=== PATIENT | female | born 1955 | race Caucasian/White ===

== ENCOUNTER 2016-10-15 17:28 | Emergency (ER) | payer OTHER ==
[~2016-10-15] VITALS: Ht 160 cm; Wt 47.6 kg
[~2016-10-15 17:28] MED LIST: ALBUTEROL LIQ; ATROVENT0.02%; NICO21DI4; ORASONE; PRED20TA; ROBITUSSIN; TESS100C; XOPE1.252
[2016-10-15 17:38] VITALS: BP 130/89
== END 2016-10-15 18:24 | disposition home or self-care (01) ==
LOC: M ED 18:18
DX: Z04.1 Encounter for examination and observation following transport accident (principal); J44.9 Chronic obstructive pulmonary disease, unspecified; V47.6XXA Car passenger injured in collision with fixed or stationary object in traffic accident, initial encounter; Y92.410 Unspecified street and highway as the place of occurrence of the external cause; E11.9 Type 2 diabetes mellitus without complications; F17.210 Nicotine dependence, cigarettes, uncomplicated; Z88.6 Allergy status to analgesic agent

== ENCOUNTER 2017-01-12 15:01 | Emergency (ER) | payer OTHER ==
[~2017-01-12] VITALS: Ht 160 cm; Wt 50.0 kg
[2017-01-12] MEDS ORDERED: PERCOCET 5MG/325MG TAB PO ONE (15:30)
--- NOTE | 2017-01-12 16:21 | REP ---
Clinical: Trauma. Technique: AP, lateral, bilateral oblique views of the left foot. Findings: There is a subtle, closed, nondisplaced oblique fracture through the fifth metatarsal shaft. No other fracture dislocation is identified. Underlying age-related changes noted. Impression: Closed, nondisplaced fracture through the fifth metatarsal bone Signed by Manuel Rico MD 01/12/2017 04:12 P
[2017-01-12] MEDS ORDERED: PERC5TAB12 PO (16:27)
[2017-01-12 16:43] VITALS: BP 110/78
== END 2017-01-12 16:55 | disposition home or self-care (01) ==
LOC: M ED 15:01
DX: S92.355A Nondisplaced fracture of fifth metatarsal bone, left foot, initial encounter for closed fracture (principal); W18.49XA Other slipping, tripping and stumbling without falling, initial encounter; Y92.89 Other specified places as the place of occurrence of the external cause; Y93.89 Activity, other specified; Y99.8 Other external cause status; Z88.6 Allergy status to analgesic agent

== ENCOUNTER 2017-08-10 22:54 | Emergency (ER) | payer OTHER ==
[2017-08-10] MEDS: NITROGLYCERIN 0.4 MG SUBL TABLET SL ×2 (23:12→23:58)
[2017-08-10 23:23] LABS: BASO # 0.1 10^3/uL (0.0-0.2); BASO % 0.5 % (0.0-1.0); EOS # 0.1 10^3/uL (0.0-0.50); EOS % 0.6 % (0.0-3.0); HEMATOCRIT 42.2 % (36.0-47.0); HEMOGLOBIN 14.6 g/dl (12.0-16.0); IMMATURE GRANULOCYTE % 0.3 % (0-0); LYMPH # 1.4 10^3/uL (1.5-4.5); MEAN CORPUSCULAR HEMOGLOBIN 30.4 pg (27.0-33.0); MEAN CORPUSCULAR HGB CONC 34.6 g/dl (32.0-36.5); MEAN CORPUSCULAR VOLUME 87.9 fl (80.0-96.0); MONO # 0.9 10^3/uL (0.0-0.8); MONO % 7.5 % (0.0-5.0); NEUTROPHILS # 8.9 10^3/uL (1.8-7.7); NEUTROPHILS % 79.1 % (36.0-66.0); PLATELET COUNT, AUTOMATED 331 10^3/uL (150-450); RED CELL DISTRIBUTION WIDTH 12.4 % (11.5-14.5); WHITE BLOOD COUNT 11.3 10^3/uL (4.0-10.0)
[2017-08-10 23:42] LABS: INR 0.93; PROTHROMBIN TIME 12.5 SECONDS (12.4-14.5)
[2017-08-10 23:43] LABS: PARTIAL THROMBOPLASTIN TIME 26.5 SECONDS (26.8-37.9)
[2017-08-10 23:48] LABS: ALBUMIN 3.9 GM/DL (3.2-5.2); ALBUMIN/GLOBULIN RATIO 1.05 (1.00-1.93); ALKALINE PHOSPHATASE 115 U/L (45-117); ALT/SGPT 14 U/L (12-78); ANION GAP 10 MEQ/L (8-16); AST/SGOT 12 U/L (7-37); BILIRUBIN,DIRECT 0.1 MG/DL (0.0-0.2); BILIRUBIN,TOTAL 0.4 MG/DL (0.2-1.0); BLOOD UREA NITROGEN 10 MG/DL (7-18); CALCIUM LEVEL 8.6 MG/DL (8.8-10.2); CARBON DIOXIDE LEVEL 26 MEQ/L (21-32); CHLORIDE LEVEL 95 MEQ/L (98-107); CPK CREATINE PHOSPHOKINASE 57 U/L (26-192); CREATININE FOR GFR 0.86 MG/DL (0.55-1.30); GLOMERULAR FILTRATION RATE > 60.0 (>45); GLUCOSE, FASTING 319 MG/DL (70-100); LIPASE 126 U/L (73-393); MB/CK RELATIVE INDEX 1.75 (< OR =4); NT-PRO BNP 73 PG/ML (<125); POTASSIUM SERUM 4.1 MEQ/L (3.5-5.1); SODIUM LEVEL 131 MEQ/L (136-145); TOTAL PROTEIN 7.6 GM/DL (6.4-8.2); TROPONIN I < 0.02 NG/ML (< 0.10)
[2017-08-11] MEDS ORDERED: ISOVUE-370 76% 100ML VIAL (Q9967) As Ordered (00:12)
[2017-08-11 05:52] LABS: CPK CREATINE PHOSPHOKINASE 51 U/L (26-192); TROPONIN I < 0.02 NG/ML (< 0.10)
[2017-08-11 05:54] LABS: MB/CK RELATIVE INDEX 1.96 (< OR =4)
[2017-08-11] MEDS ORDERED: METAL LOCK LOOP XX (06:08)
== END 2017-08-11 06:38 | disposition home or self-care (01) ==
LOC: M ED 22:54
DX: R07.9 Chest pain, unspecified (principal); J44.9 Chronic obstructive pulmonary disease, unspecified; F17.200 Nicotine dependence, unspecified, uncomplicated
CPT/HCPCS: Q9967

== ENCOUNTER 2018-06-04 18:30 | Emergency (ER) | payer OTHER ==
[2018-06-04] MEDS: NS 500 ML IV (18:45)
[2018-06-04 18:49] LABS: BASO % 0.5 % (0.0-1.0); EOS # 0.1 10^3/uL (0.0-0.50); EOS % 1.4 % (0.0-3.0); HEMATOCRIT 44.5 % (36.0-47.0); HEMOGLOBIN 15.1 g/dl (12.0-15.5); IMMATURE GRANULOCYTE % 0.5 % (0-3.0); LYMPH # 1.7 10^3/uL (1.5-4.5); MEAN CORPUSCULAR HEMOGLOBIN 30.9 pg (27.0-33.0); MEAN CORPUSCULAR HGB CONC 33.9 g/dl (32.0-36.5); MEAN CORPUSCULAR VOLUME 91.2 fl (80.0-96.0); MONO # 0.6 10^3/uL (0.0-0.8); MONO % 8.9 % (0.0-5.0); NEUTROPHILS # 4.2 10^3/uL (1.8-7.7); NEUTROPHILS % 63.7 % (36.0-66.0); PLATELET COUNT, AUTOMATED 252 10^3/uL (150-450); RED BLOOD COUNT 4.88 10^6/uL (4.00-5.40); RED CELL DISTRIBUTION WIDTH 12.8 % (11.5-14.5); WHITE BLOOD COUNT 6.6 10^3/uL (4.0-10.0)
[2018-06-04] MEDS: TENECTEPLASE 50 MG KIT (TNKase)(J3101) IV (18:57)
[2018-06-04] MEDS: NITROGLYCERIN 0.4 MG SUBL TABLET SL (18:59)
[2018-06-04] MEDS: HEPARIN SOD (PORCINE) 5000 UNITS/ML VIAL IV (19:00)
[2018-06-04 19:01] LABS: INR 0.89; PROTHROMBIN TIME 12.1 SECONDS (12.1-14.4)
[2018-06-04 19:02] LABS: PARTIAL THROMBOPLASTIN TIME 20.9 SECONDS (25.4-37.6)
[2018-06-04] MEDS: ONDANSETRON 4MG/2ML VIAL (J2405) IV ×2 (19:02→19:12)
[2018-06-04] MEDS: CLOPIDOGREL 300 MG TAB (PLAVIX) PO ×2 (19:02→19:07)
[2018-06-04] MEDS: HEPARIN DRIP 25,000 UNITS in APPROPRIATE DILUENT 1 EA IV (19:03)
[2018-06-04] MEDS: fentaNYL 100 MCG/2 ML INJECTION (J3010) IV (19:06)
[2018-06-04 19:30] LABS: ALBUMIN 3.4 GM/DL (3.2-5.2); ALBUMIN/GLOBULIN RATIO 1.06 (1.00-1.93); ALKALINE PHOSPHATASE 96 U/L (45-117); ALT/SGPT 17 U/L (12-78); ANION GAP 8 MEQ/L (8-16); AST/SGOT 13 U/L (7-37); BILIRUBIN,DIRECT 0.1 MG/DL (0.0-0.2); BILIRUBIN,TOTAL 0.4 MG/DL (0.2-1.0); BLOOD UREA NITROGEN 15 MG/DL (7-18); CALCIUM LEVEL 7.9 MG/DL (8.8-10.2); CARBON DIOXIDE LEVEL 28 MEQ/L (21-32); CHLORIDE LEVEL 101 MEQ/L (98-107); CPK CREATINE PHOSPHOKINASE 47 U/L (26-192); CREATININE FOR GFR 0.86 MG/DL (0.55-1.30); FREE T4 1.15 NG/DL (0.76-1.46); GLOMERULAR FILTRATION RATE > 60.0 (>45); GLUCOSE, FASTING 284 MG/DL (70-100); LIPASE 106 U/L (73-393); MB/CK RELATIVE INDEX 2.34 (< OR =4); NT-PRO BNP 472 PG/ML (<125); POTASSIUM SERUM 4.1 MEQ/L (3.5-5.1); SODIUM LEVEL 137 MEQ/L (136-145); TOTAL PROTEIN 6.6 GM/DL (6.4-8.2); TROPONIN I 0.05 NG/ML (< 0.10)
[2018-06-04] MEDS: METOPROLOL TART 25 MG TABLET PO (19:34)
== END 2018-06-04 20:15 | disposition short-term general hospital (02) ==
LOC: M ED 18:30
DX: I21.19 ST elevation (STEMI) myocardial infarction involving other coronary artery of inferior wall (principal); E11.9 Type 2 diabetes mellitus without complications; J44.9 Chronic obstructive pulmonary disease, unspecified; Z88.8 Allergy status to other drugs, medicaments and biological substances; F17.210 Nicotine dependence, cigarettes, uncomplicated
CPT/HCPCS: J2405

== ENCOUNTER → 2018-06-29 | Outpatient (REF) | payer MEDICARE, OTHER ==
[~2018-06-29] MED LIST changes: +ALBU83IN NEB; +PERC5TAB12 PO
[2018-06-29 11:12] LABS: INR 1.35; PROTHROMBIN TIME 16.8 SECONDS (12.1-14.4)
== END ==
LOC: M LAB REF 10:47
PROVIDERS: ATTEND Physician Assistant
DX: D75.82 Heparin induced thrombocytopenia (HIT) (principal); Z79.01 Long term (current) use of anticoagulants

== ENCOUNTER → 2018-07-04 | Outpatient (REF) | payer MEDICARE, MEDICAID ==
[2018-07-04 11:28] LABS: INR 1.13; PROTHROMBIN TIME 14.7 SECONDS (12.1-14.4)
== END ==
LOC: M LAB REF 11:02
PROVIDERS: ATTEND Physician Assistant
DX: I21.9 Acute myocardial infarction, unspecified (principal)

== ENCOUNTER 2018-08-08 13:18 | Emergency (ER) | payer MEDICARE, MEDICAID ==
[~2018-08-08] VITALS: Ht 160 cm; Wt 42.2 kg
[2018-08-08] MEDS ORDERED: METF-839 (13:25)
[2018-08-08] MEDS ORDERED: NS 500 ML IV ONE (13:45)
[2018-08-08 13:58] LABS: VENOUS BASE EXCESS 6.2 (-2.0-2.0); VENOUS HCO3 33.3 MEQ/L (23.0-27.0); VENOUS O2 SATURATION 62.8 % (60.0-80.0); VENOUS PARTIAL PRESSURE CO2 57.2 mmHg (38.0-50.0); VENOUS PARTIAL PRESSURE O2 33.2 mmHg (30.0-50.0); VENOUS PH 7.383 UNITS (7.330-7.430); VENOUS STANDARD HCO3 29.1 MEQ/L; VENOUS TOTAL CO2 35.1 MEQ/L (24.0-28.0)
[2018-08-08 14:02] LABS: HEMATOCRIT 38.8 % (36.0-47.0); MEAN CORPUSCULAR HEMOGLOBIN 29.3 pg (27.0-33.0); MEAN CORPUSCULAR HGB CONC 33.5 g/dl (32.0-36.5); MEAN CORPUSCULAR VOLUME 87.4 fl (80.0-96.0); PLATELET COUNT, AUTOMATED 331 10^3/uL (150-450); RED BLOOD COUNT 4.44 10^6/uL (4.00-5.40); WHITE BLOOD COUNT 8.5 10^3/uL (4.0-10.0)
[2018-08-08] MEDS ORDERED: DILT30TA PO (14:02)
[2018-08-08] MEDS ORDERED: METF500T13 PO (14:02)
[2018-08-08] MEDS ORDERED: FOLI1TAB11 PO (14:02)
[2018-08-08] MEDS ORDERED: WARF4TAB51 PO (14:02)
[2018-08-08] MEDS ORDERED: ATOR40TA75 PO (14:02)
[2018-08-08] MEDS ORDERED: CLOP75TA2 PO (14:02)
[2018-08-08] MEDS ORDERED: METO1TAB87 PO (14:02)
[2018-08-08] MEDS ORDERED: FERR325T16 PO (14:02)
[2018-08-08] MEDS ORDERED: STOO100C PO (14:02)
[2018-08-08] MEDS ORDERED: RAMI1CAP21 PO (14:02)
[2018-08-08 14:23] LABS: HEMOGLOBIN A1c 9.1 %
[2018-08-08 14:35] LABS: BLOOD UREA NITROGEN 12 MG/DL (7-18); CALCIUM LEVEL 8.8 MG/DL (8.8-10.2); CARBON DIOXIDE LEVEL 32 MEQ/L (21-32); CHLORIDE LEVEL 91 MEQ/L (98-107); CREATININE FOR GFR 0.73 MG/DL (0.55-1.30); GLOMERULAR FILTRATION RATE > 60.0 (>45); GLUCOSE, FASTING 463 MG/DL (70-100); POTASSIUM SERUM 3.9 MEQ/L (3.5-5.1); SODIUM LEVEL 132 MEQ/L (136-145)
[2018-08-08] MEDS ORDERED: HumuLIN R (REGULAR) INSULIN (NovoLIN R) **100U/ML** PER UNIT IV ONE (15:00)
[2018-08-08] MEDS ORDERED: ONDANSETRON 4MG/2ML VIAL (J2405) IV ONE (15:00)
[2018-08-08] MEDS ORDERED: LANTINJ4 SC (17:10)
[2018-08-08] MEDS ORDERED: TRES100I SC (17:21)
[2018-08-08 17:27] VITALS: BP 122/72
== END 2018-08-08 17:28 | disposition home or self-care (01) ==
LOC: M ED 13:18
DX: E11.65 Type 2 diabetes mellitus with hyperglycemia (principal); I11.9 Hypertensive heart disease without heart failure; I25.2 Old myocardial infarction; I25.10 Atherosclerotic heart disease of native coronary artery without angina pectoris; J44.9 Chronic obstructive pulmonary disease, unspecified; F17.210 Nicotine dependence, cigarettes, uncomplicated; Z95.1 Presence of aortocoronary bypass graft; Z88.8 Allergy status to other drugs, medicaments and biological substances; Z79.899 Other long term (current) drug therapy; Z79.02 Long term (current) use of antithrombotics/antiplatelets; Z79.01 Long term (current) use of anticoagulants
CPT/HCPCS: 80048; 82803; 83036; 85027; 96374; 96375; 99284; J2405

== ENCOUNTER 2018-10-05 21:07 | Emergency (ER) | payer MEDICARE, MEDICAID ==
[~2018-10-05] VITALS: Ht 160 cm; Wt 39.1 kg
[~2018-10-05 21:07] MED LIST changes: +ATOR40TA75 PO; +CLOP75TA2 PO; +DILT30TA PO; +FERR325T16 PO; +FOLI1TAB11 PO; +LANTINJ4 SC; +METF-839; +METF500T13 PO; +METO1TAB87 PO; +RAMI1CAP21 PO; +STOO100C PO; +TRES100I SC; +WARF4TAB51 PO
[2018-10-05] MEDS ORDERED: NITROGLYCERIN 0.4 MG SUBL TABLET SL PRN (21:45)
[2018-10-05 21:51] LABS: BASO # 0.1 10^3/uL (0.0-0.2); BASO % 0.9 % (0.0-1.0); EOS # 0.2 10^3/uL (0.0-0.50); EOS % 2.6 % (0.0-3.0); HEMATOCRIT 42.2 % (36.0-47.0); HEMOGLOBIN 14.3 g/dl (12.0-15.5); LYMPH # 2.8 10^3/uL (1.5-4.5); LYMPH % 35.9 % (24.0-44.0); MEAN CORPUSCULAR HEMOGLOBIN 29.3 pg (27.0-33.0); MEAN CORPUSCULAR HGB CONC 33.9 g/dl (32.0-36.5); MEAN CORPUSCULAR VOLUME 86.5 fl (80.0-96.0); MONO # 0.6 10^3/uL (0.0-0.8); MONO % 7.2 % (0.0-5.0); NEUTROPHILS # 4.1 10^3/uL (1.8-7.7); NEUTROPHILS % 53.3 % (36.0-66.0); PLATELET COUNT, AUTOMATED 334 10^3/uL (150-450); RED BLOOD COUNT 4.88 10^6/uL (4.00-5.40); WHITE BLOOD COUNT 7.8 10^3/uL (4.0-10.0)
[2018-10-05 22:02] LABS: INR 0.88; PARTIAL THROMBOPLASTIN TIME 22.6 SECONDS (25.4-37.6)
--- NOTE | 2018-10-05 22:11 | REP ---
Clinical: Chest pain . Comparison: 06/04/2018 . Findings: The mediastinum and cardiac silhouette are stable and within normal limits for portable technique. The lung werner are clear without acute consolidation, effusion, or pneumothorax. Skeletal structures are intact. Impression: No acute cardiopulmonary process appreciated. Electronically Signed by Manuel Rico MD 10/05/2018 10:02 P
[2018-10-05 22:23] LABS: ALBUMIN 3.5 GM/DL (3.2-5.2); ALT/SGPT 12 U/L (12-78); BILIRUBIN,DIRECT < 0.1 MG/DL (0.0-0.2); BILIRUBIN,TOTAL 0.3 MG/DL (0.2-1.0); BLOOD UREA NITROGEN 14 MG/DL (7-18); CALCIUM LEVEL 8.6 MG/DL (8.8-10.2); CARBON DIOXIDE LEVEL 32 MEQ/L (21-32); CHLORIDE LEVEL 97 MEQ/L (98-107); CPK CREATINE PHOSPHOKINASE 34 U/L (26-192); CREATININE FOR GFR 0.88 MG/DL (0.55-1.30); GLOMERULAR FILTRATION RATE > 60.0 (>45); GLUCOSE, FASTING 331 MG/DL (70-100); LIPASE 153 U/L (73-393); MB/CK RELATIVE INDEX 3.53 (< OR =4); POTASSIUM SERUM 3.6 MEQ/L (3.5-5.1); SODIUM LEVEL 138 MEQ/L (136-145); THYROID STIMULATING HORMONE 0.978 uIU/ML (0.358-3.740); TOTAL PROTEIN 6.7 GM/DL (6.4-8.2); TROPONIN I < 0.02 NG/ML (< 0.10)
[2018-10-05] MEDS ORDERED: ISOVUE-370 76% 125ML VIAL (Q9967 PER ML) As Ordered ONE (22:31)
[2018-10-05 22:55] VITALS: BP 166/89
--- NOTE | 2018-10-05 23:18 | REP ---
Clinical: Chest pain. Technique: Axial contrast enhanced images from the thoracic inlet to the upper abdomen with multiplanar re-formations using 100 ml Isovue 370 intravenous contrast material. Findings: Satisfactory enhancement of the pulmonary vasculature is achieved and no filling defects are identified to suggest pulmonary embolus. Bilateral lung werner demonstrate mild interstitial changes small rounded area of opacity in the lateral left lower lobe (image 59). No discrete significant consolidation. No effusion. No pneumothorax. Tracheobronchial tree is patent. No adenopathy. Mediastinum demonstrates normal thoracic aorta and heart/pericardium. Surrounding osseous structures are intact. Impression: 1. No pulmonary embolus. 2. Minimal subtle ground-glass opacities suggest possible bronchitis. Electronically Signed by Manuel Rico MD 10/05/2018 11:09 P
[2018-10-06 01:02] LABS: MB/CK RELATIVE INDEX 4.14 (< OR =4); TROPONIN I 0.03 NG/ML (< 0.10)
[2018-10-06] MEDS ORDERED: IPRATROPIUM 0.5MG/ALBUTEROL 2.5MG INH SOL UD 3ML (DUONEB)(J7620) As Ordered ONE (02:19)
[2018-10-06] MEDS ORDERED: IPRATROPIUM 0.5MG/ALBUTEROL 2.5MG INH SOL UD 3ML (DUONEB)(J7620) NEB ONE (02:30)
[2018-10-06 02:35] LABS: CPK CREATINE PHOSPHOKINASE 31 U/L (26-192); MB/CK RELATIVE INDEX 3.55 (< OR =4); TROPONIN I < 0.02 NG/ML (< 0.10)
[2018-10-06 03:07] VITALS: BP 133/82
--- NOTE | 2018-10-06 09:37 | ECGEPIP ---
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
--- NOTE | 2018-10-06 09:38 | ECGEPIP ---
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
--- NOTE | 2018-10-06 09:38 | ECGEPIP ---
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
== END 2018-10-06 03:34 | disposition home or self-care (01) ==
LOC: M ED 21:07
DX: R07.89 Other chest pain (principal); I45.10 Unspecified right bundle-branch block; R00.0 Tachycardia, unspecified; I25.10 Atherosclerotic heart disease of native coronary artery without angina pectoris; I25.2 Old myocardial infarction; E11.9 Type 2 diabetes mellitus without complications; I10 Essential (primary) hypertension; J44.9 Chronic obstructive pulmonary disease, unspecified; D75.82 Heparin induced thrombocytopenia (HIT); Z95.5 Presence of coronary angioplasty implant and graft; Z72.0 Tobacco use; Z79.01 Long term (current) use of anticoagulants; Z88.8 Allergy status to other drugs, medicaments and biological substances
CPT/HCPCS: 71045; 71275; 80048; 80076; 82550; 82553; 83690; 84443; 84484; 85025; 85610; 85730; 93005; 93041; 94760; 99285; Q9967

== ENCOUNTER 2019-07-05 00:52 | Emergency (ER) | payer MEDICARE, MEDICAID ==
[~2019-07-05] VITALS: Ht 160 cm; Wt 38.6 kg
[~2019-07-05 00:52] MED LIST changes: +MM S100C PO; -STOO100C PO
[2019-07-05 01:28] LABS: BASO # 0.1 10^3/uL (0.0-0.2); BASO % 0.6 % (0.0-1.0); EOS # 0.1 10^3/uL (0.0-0.5); EOS % 1.5 % (0.0-3.0); HEMATOCRIT 44.1 % (36.0-47.0); HEMOGLOBIN 14.4 g/dl (12.0-15.5); LYMPH # 1.8 10^3/uL (1.5-5.0); LYMPH % 20.5 % (24.0-44.0); MEAN CORPUSCULAR HEMOGLOBIN 30.1 pg (27.0-33.0); MEAN CORPUSCULAR HGB CONC 32.7 g/dl (32.0-36.5); MEAN CORPUSCULAR VOLUME 92.1 fl (80.0-96.0); MONO # 0.7 10^3/uL (0.0-0.8); MONO % 7.8 % (0.0-5.0); NEUTROPHILS # 6.2 10^3/uL (1.5-8.5); NEUTROPHILS % 69.3 % (36.0-66.0); PLATELET COUNT, AUTOMATED 282 10^3/uL (150-450); RED BLOOD COUNT 4.79 10^6/uL (4.00-5.40); WHITE BLOOD COUNT 8.9 10^3/uL (4.0-10.0)
[2019-07-05 01:58] LABS: INFLUENZA A AMPLIFICATION NEGATIVE (NEGATIVE); INFLUENZA B AMPLIFICATION NEGATIVE (NEGATIVE)
[2019-07-05 02:01] LABS: BLOOD UREA NITROGEN 21 MG/DL (7-18); CALCIUM LEVEL 9.4 MG/DL (8.8-10.2); CARBON DIOXIDE LEVEL 30 MEQ/L (21-32); CHLORIDE LEVEL 94 MEQ/L (98-107); CK-MB VALUE MASS < 1.0 NG/ML (<3.6); CPK CREATINE PHOSPHOKINASE 56 U/L (26-192); CREATININE FOR GFR 1.26 MG/DL (0.55-1.30); GLOMERULAR FILTRATION RATE 45.4 (>45); MB/CK RELATIVE INDEX 1.79 (< OR =4); POTASSIUM SERUM 3.4 MEQ/L (3.5-5.1); SODIUM LEVEL 132 MEQ/L (136-145); TROPONIN I < 0.02 NG/ML (< 0.10)
[2019-07-05 02:02] LABS: GLUCOSE, FASTING 423 MG/DL (70-100)
[2019-07-05] MEDS ORDERED: POTASSIUM CHLORIDE 10 MEQ SR TABLET PO ONE (02:30)
[2019-07-05] MEDS ORDERED: NS 500 ML IV ONE (02:45)
[2019-07-05] MEDS ORDERED: HumuLIN R (REGULAR) INSULIN (NovoLIN R) **100U/ML** PER UNIT IV ONE (02:45)
[2019-07-05] MEDS ORDERED: IPRATROPIUM 0.5MG/ALBUTEROL 2.5MG INH SOL UD 3ML (DUONEB)(J7620) NEB ONE (02:45)
[2019-07-05] MEDS ORDERED: methylPREDNISolone INJ 125 MG/2 ML VIAL (J2930) IV ONE (02:45)
[2019-07-05 02:59] LABS: HEMOGLOBIN A1c 14.5 %
[2019-07-05] MEDS ORDERED: PRED5PAK2 PO (04:20)
[2019-07-05] MEDS ORDERED: METF-839 PO (04:23)
[2019-07-05 05:00] VITALS: BP 106/59
--- NOTE | 2019-07-05 08:01 | REP ---
Clinical: Cough and dyspnea . Comparison: 10/05/2018 . Findings: The mediastinum and cardiac silhouette are stable and within normal limits for portable technique. The lung werner demonstrate chronic emphysematous changes without acute consolidation, effusion, or pneumothorax. Skeletal structures are intact. Impression: No acute cardiopulmonary process appreciated. Electronically Signed by Manuel Rico MD 07/05/2019 07:47 A
--- NOTE | 2019-07-07 14:51 | ECGEPIP ---
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
== END 2019-07-05 05:10 | disposition home or self-care (01) ==
LOC: M ED 00:52
DX: J44.1 Chronic obstructive pulmonary disease with (acute) exacerbation (principal); E11.65 Type 2 diabetes mellitus with hyperglycemia; R00.0 Tachycardia, unspecified; I44.0 Atrioventricular block, first degree; I45.10 Unspecified right bundle-branch block; I51.7 Cardiomegaly; I25.2 Old myocardial infarction; Z95.1 Presence of aortocoronary bypass graft; F17.210 Nicotine dependence, cigarettes, uncomplicated; Z88.6 Allergy status to analgesic agent
CPT/HCPCS: 71045; 80048; 82550; 82553; 83036; 84484; 85025; 87486; 87502; 87581; 87633; 87798; 93005; 93041; 94640; 94760; 96361; 96374; 96375; 99285; J2930

== ENCOUNTER 2019-07-08 21:36 | Inpatient (IN) | payer MEDICARE, MEDICAID ==
[~2019-07-08] VITALS: Ht 160 cm; Wt 44.9 kg
[~2019-07-08 21:36] MED LIST changes: +METF-839 PO; +PRED5PAK2 PO
[2019-07-08 22:07] LABS: BASO % 0.2 % (0.0-1.0); HEMATOCRIT 48.6 % (36.0-47.0); HEMOGLOBIN 15.5 g/dl (12.0-15.5); LYMPH # 0.6 10^3/uL (1.5-5.0); LYMPH % 4.8 % (24.0-44.0); MEAN CORPUSCULAR HEMOGLOBIN 30.1 pg (27.0-33.0); MEAN CORPUSCULAR HGB CONC 31.9 g/dl (32.0-36.5); MEAN CORPUSCULAR VOLUME 94.4 fl (80.0-96.0); MONO # 0.7 10^3/uL (0.0-0.8); MONO % 5.6 % (0.0-5.0); NEUTROPHILS # 11.8 10^3/uL (1.5-8.5); NEUTROPHILS % 89.1 % (36.0-66.0); PLATELET COUNT, AUTOMATED 300 10^3/uL (150-450); RED BLOOD COUNT 5.15 10^6/uL (4.00-5.40); WHITE BLOOD COUNT 13.3 10^3/uL (4.0-10.0)
[2019-07-08] MEDS ORDERED: PANTOPRAZOLE 40MG INJ (PROTONIX) (C9113) IV ONE (22:30)
[2019-07-08] MEDS ORDERED: GI COCKTAIL 50ML BTL(HYOSCYAMINE/MAALOX/LIDOCAINE VISCOUS)(1:3:1) PO ONE (22:30)
[2019-07-08 23:07] LABS: ALBUMIN 3.7 GM/DL (3.2-5.2); ALT/SGPT 13 U/L (12-78); BILIRUBIN,DIRECT 0.1 MG/DL (0.0-0.2); BILIRUBIN,TOTAL 0.5 MG/DL (0.2-1.0); BLOOD UREA NITROGEN 39 MG/DL (7-18); CARBON DIOXIDE LEVEL 16 MEQ/L (21-32); CHLORIDE LEVEL 91 MEQ/L (98-107); CK-MB VALUE MASS < 1.0 NG/ML (<3.6); CPK CREATINE PHOSPHOKINASE 54 U/L (26-192); CREATININE FOR GFR 1.48 MG/DL (0.55-1.30); GLOMERULAR FILTRATION RATE 37.6 (>45); GLUCOSE, FASTING 447 MG/DL (70-100); LIPASE 77 U/L (73-393); MB/CK RELATIVE INDEX 1.85 (< OR =4); POTASSIUM SERUM 4.6 MEQ/L (3.5-5.1); SODIUM LEVEL 131 MEQ/L (136-145); TOTAL PROTEIN 8.4 GM/DL (6.4-8.2); TROPONIN I < 0.02 NG/ML (< 0.10)
[2019-07-08] MEDS ORDERED: HumuLIN R (REGULAR) INSULIN (NovoLIN R) **100U/ML** PER UNIT IV ONE (23:15)
[2019-07-08] MEDS ORDERED: NS 1,000 ML IV ONE (23:15)
[2019-07-08 23:55] LABS: VENOUS BASE EXCESS -10.8 (-2.0-2.0); VENOUS O2 SATURATION 68.2 % (60.0-80.0); VENOUS PARTIAL PRESSURE CO2 38.9 mmHg (38.0-50.0); VENOUS PARTIAL PRESSURE O2 39.2 mmHg (30.0-50.0); VENOUS PH 7.232 UNITS (7.330-7.430); VENOUS STANDARD HCO3 15.5 MEQ/L; VENOUS TOTAL CO2 17.2 MEQ/L (24.0-28.0)
[2019-07-08 23:59] LABS: ACETONE/KETONE > 46.00 MG/DL (<2.81)
[2019-07-09] VITALS (11 sets, daily range): BP systolic 86–137; BP diastolic 47–69
[2019-07-09] MEDS ORDERED: PRED5PAK2 PO (00:20)
[2019-07-09] MEDS ORDERED: METF-839 PO (00:20)
[2019-07-09] MEDS ORDERED: NS 1,000 ML IV ONE ×2 (01:15→16:00)
[2019-07-09] MEDS ORDERED: INSULIN HUMAN REGULAR 100 UNITS in NS 99 ML IV SCH (01:15)
[2019-07-09] MEDS ORDERED: KCL 20MEQ in NS 1000ML 1,000 ML IV SCH (01:15)
--- NOTE | 2019-07-09 01:15 | HPEPDOC ---
[facility] Medical History & Physical Date of Admission Jul 09, 2019 Date of Service: Jul 09, 2019 Attending Physician: CHAU ELENA MD History and Physical CHIEF COMPLAINT: Abdominal pain HISTORY OF PRESENT ILLNESS: 64-year-old female with past medical history of diabetes mellitus, COPD, coronary artery disease status post CABG in 2018, presents with worsening abdominal pain. She had similar symptoms a few days ago, presented to the ED and was discharged home. She reports progression of symptoms with worsening abdominal pain with associated nausea, poor oral intake and decreased urination. In the ED, she is found to have high anion gap metabolic acidosis with significant hyperglycemia and elevated beta hydroxybutyrate levels. She denies any shortness of breath, chest pain, headache, diarrhea or constipation. 10 point review of system is negative except for above PAST MEDICAL HISTORY: 1. Diabetes mellitus. 2. Coronary artery disease. 3. COPD. PAST SURGICAL HISTORY: 1. CABG. 2. , Appendectomy. SOCIAL HISTORY: Current smoker, smokes 1 pack per day, has been smoking for 40 years Denies alcohol use. Denies drug use FAMILY HISTORY: Mother had unknown malignancy ALLERGIES: Please see below. HOME MEDICATIONS: Please see below. PHYSICAL EXAMINATION: VITAL SIGNS: Please see below. GENERAL: No distress HEENT: Normocephalic, atraumatic, dry mucous membranes NECK: Supple CARDIOVASCULAR EXAMINATION: S1, S2, tachycardic RESPIRATORY EXAMINATION: Clear to auscultation, no wheezing ABDOMINAL EXAMINATION: Soft, mild epigastric tenderness to palpation, nondistended, positive bowel sounds EXTREMITIES: Range of motion intact SKIN: No rash NEUROLOGICAL EXAMINATION: Alert and oriented 3, no focal deficits PSYCHIATRIC EXAMINATION: Calm and cooperative LABORATORY DATA: See below. IMAGING: Chest x-ray without acute pathology MICROBIOLOGY: Please see below. ASSESSMENT: 64-year-old female with past medical history diabetes mellitus, COPD, coronary artery disease, status post CABG is being admitted for diabetic ketoacidosis. PLAN: 1. Diabetic ketoacidosis. High anion gap metabolic acidosis with elevated beta hydroxybutyrate levels, pH 7.23, status post 14 units of IV insulin in the ED, start insulin drip, admitted to ICU, hourly fingersticks, every 4 hours BMP, received 1 L normal saline bolus in the ED, will give another 1 L normal saline bolus followed by potassium chloride 20 mEq in normal saline at 200 mL per hour. 2. COPD Stable, not on any outpatient medication, continue supplemental oxygen to maintain O2 sats between 88-92%. 3. Coronary artery disease. Status post CABG in 2018, reportedly she is not on any medication at home, should be addressed once DKA has resolved. 4. Acute on chronic kidney disease. Creatinine is slightly elevated, likely prerenal, will monitor with aggressive IV hydration. DVT prophylaxis: Heparin subcutaneous GI prophylaxis prophylaxis: Protonix Vital Signs Vital Signs Date Time Temp Pulse Resp B/P (MAP) Pulse Ox O2 Delivery O2 Flow Rate FiO2 07/08/19 23:45 119 81/56 (64) 90 07/08/19 23:36 Nasal Cannula 2.0 07/08/19 21:36 96.9 22 Laboratory Data Labs 24H Laboratory Tests 2 07/08/19 22:01: Immature Granulocyte % (Auto) 0.3, Neutrophils (%) (Auto) 89.1H, Lymphocytes (%) (Auto) 4.8L, Monocytes (%) (Auto) 5.6H, Eosinophils (%) (Auto) 0.0, Basophils (%) (Auto) 0.2, Neutrophils # (Auto) 11.8H, Lymphocytes # (Auto) 0.6L, Monocytes # (Auto) 0.7, Eosinophils # (Auto) 0.0, Basophils # (Auto) 0.0, Nucleated Red Blood Cells % (auto) 0.0, Blood Gas Bicarbonate Standard 15.5, Venous Blood pH 7.232L, Venous Blood Partial Pressure CO2 38.9, Venous Blood Partial Pressure O2 39.2, Venous Blood Total Carbon Dioxide 17.2L, Venous Blood HCO3 16.0L, Venous Blood Oxygen Saturation 68.2, Venous Blood Base Excess -10.8L, Anion Gap 24H, Glomerular Filtration Rate 37.6L, Calcium Level 9.0, Total Bilirubin 0.5, Direct Bilirubin 0.1, Aspartate Amino Transf (AST/SGOT) 15, Alanine Aminotransferase (ALT/SGPT) 13, Alkaline Phosphatase 107, Total Creatine Kinase 54, Creatine Kinase MB < 1.0, Creatine Kinase MB Relative Index 1.85, Troponin I < 0.02, Total Protein 8.4H, Albumin 3.7, Albumin/Globulin Ratio 0.79L, Lipase 77, B- Hydroxybutyrate > 46.00H CBC/BMP Laboratory Tests 07/08/19 22:01 Home Medications Scheduled Metformin HCl (Metformin HCl) 500 Mg Tablet, 500 MG PO BID Prednisone (Prednisone) 5 Mg Tab.ds.pk, 5 MG PO ASDIRECTED 6 DAY TAPER DOSE LIKE MEDROL. ON DAY 3 (1 TABLET IN THE MORNING, 1 TABLET IN THE AFTERNOON AND 1 TABLET AT NIGHT) Allergies Coded Allergies: aspirin (Unverified Adverse Reaction, Mild, NAUSEA, 10/05/18) A-FIB/CHADSVASC A-FIB History Current/History of A-Fib/PAF?: No CHAU ELENA MD Jul 09, 2019 01:15
[2019-07-09] MEDS ORDERED: KCL 20MEQ IN D5/NS 1000ML 1,000 ML IV SCH (02:00)
[2019-07-09 02:36] LABS: CREATININE FOR GFR 1.24 MG/DL (0.55-1.30)
[2019-07-09 02:37] LABS: ALBUMIN 2.8 GM/DL (3.2-5.2); BILIRUBIN,TOTAL 0.4 MG/DL (0.2-1.0); CALCIUM LEVEL 7.6 MG/DL (8.8-10.2); GLOMERULAR FILTRATION RATE 46.1 (>45); MAGNESIUM LEVEL 2.2 MG/DL (1.8-2.4); POTASSIUM SERUM 4.1 MEQ/L (3.5-5.1); TOTAL PROTEIN 6.2 GM/DL (6.4-8.2)
[2019-07-09] MEDS: INSULIN IV RATE CHANGE DOCUMENTATION ML/HR XX SCH ×4 (04:07→07:07)
[2019-07-09 05:29] LABS: CALCIUM LEVEL 7.8 MG/DL (8.8-10.2); CREATININE FOR GFR 1.2 MG/DL (0.55-1.30); GLOMERULAR FILTRATION RATE 47.8 (>45); POTASSIUM SERUM 3.9 MEQ/L (3.5-5.1)
[2019-07-09] MEDS ORDERED: LEVEMIR (INSULIN DETEMIR) 1 UNITS/0.01ML SC ONE (06:00)
--- NOTE | 2019-07-09 07:27 | REP ---
Clinical: Chest pain . Comparison: 07/05/2019 . Findings: The mediastinum and cardiac silhouette are stable and within normal limits for portable technique. Evidence of prior sternotomy and CABG. The lung werner demonstrate chronic changes without acute consolidation, effusion, or pneumothorax. Skeletal structures are intact. Impression: No acute cardiopulmonary process appreciated. Electronically Signed by Manuel Rico MD 07/09/2019 07:18 A
[2019-07-09] MEDS ORDERED: GLUCOSE 4 GM CHEW TABLET PO PRN (08:15)
[2019-07-09] MEDS ORDERED: GLUCAGON FOR INJ 1 MG VIAL (J1610) SC PRN (08:15)
[2019-07-09] MEDS ORDERED: DEXTROSE 50% 50 ML SYRINGE IV PRN (08:15)
[2019-07-09] MEDS: HEPARIN SOD (PORCINE) 5000 UNITS/ML VIAL SC SCH ×2 (08:28→20:43)
[2019-07-09] MEDS ORDERED: PANTOPRAZOLE 40MG INJ (PROTONIX) (C9113) IV SCH (09:00)
--- NOTE | 2019-07-09 09:21 | REP ---
Clinical: Pneumonia. Technique: PA and lateral. Comparison: 07/08/2019. Findings: Mediastinum and cardiac silhouette are normal. Diffuse chronic interstitial changes are again appreciated. No discrete focal consolidation, effusion, or pneumothorax. Skeletal structures demonstrate osteopenia and degenerative changes. Evidence for prior sternotomy and CABG. Impression: No focal consolidation or effusion. Electronically Signed by Manuel Rico MD 07/09/2019 09:12 A
[2019-07-09] MEDS ORDERED: LevoFLOXacin IV 750 MG in IV 1 EA IV SCH (10:00)
[2019-07-09 10:36] LABS: BLOOD UREA NITROGEN 27 MG/DL (7-18); CARBON DIOXIDE LEVEL 25 MEQ/L (21-32); CHLORIDE LEVEL 106 MEQ/L (98-107); CREATININE FOR GFR 0.93 MG/DL (0.55-1.30); GLOMERULAR FILTRATION RATE > 60.0 (>45); GLUCOSE, FASTING 144 MG/DL (70-100); PHOSPHORUS LEVEL 1.4 MG/DL (2.5-4.9); POTASSIUM SERUM 4.3 MEQ/L (3.5-5.1); SODIUM LEVEL 137 MEQ/L (136-145)
--- NOTE | 2019-07-09 10:56 | IPNPDOC ---
Text Note Date of Service The patient was seen on 07/09/19. NOTE Subjective: Patient complains of cough with greenish sputum. Patient stated that she has appetite and she would like to eat. Patient has fever, chills, nausea, vomiting, diarrhea or dysuria Objective: GENERAL: No distress HEENT: Normocephalic, atraumatic, dry mucous membranes NECK: Supple, PERRLA, EOMI CARDIOVASCULAR EXAMINATION: S1, S2, tachycardic RESPIRATORY EXAMINATION: Coarse lung sounds bilaterally, diminished ABDOMINAL EXAMINATION: Soft, mild epigastric tenderness to palpation, nondistended, positive bowel sounds EXTREMITIES: Range of motion intact SKIN: No rash NEUROLOGICAL EXAMINATION: Alert and oriented 3, no focal deficits PSYCHIATRIC EXAMINATION: Calm and cooperative ASSESSMENT: 64-year-old female with past medical history diabetes mellitus, COPD, coronary artery disease, status post CABG is being admitted for diabetic ketoacidosis. PLAN: 1. Diabetic ketoacidosis Resolved High anion gap closed Patient started eating. Insulin sliding scale Diabetes diet 2. COPD exacerbation Patient is active smoker, 1 pack a day Developed cough and greenish sputum Chest x-ray Levofloxacin IV Sputum culture 3. Coronary artery disease. Status post CABG in 2018 I started aspirin and metoprolol Echo 4. Acute on chronic kidney disease Secondary to dehydration due to DKA Improved Continue IV hydration VS,Yuriye, I+O VS, Elpidiobone, I+O Laboratory Tests 07/08/19 22:01 07/09/19 01:56 07/09/19 04:46 Vital Signs Date Time Temp Pulse Resp B/P (MAP) Pulse Ox O2 Delivery O2 Flow Rate FiO2 07/09/19 08:55 103 118/57 (77) 07/09/19 08:00 99.6 24 91 Nasal Cannula 07/09/19 08:00 2.0 I&O- Last 24 Hours up to 6 AM 07/09/19 06:00 Intake Total 800 ml Output Total 200 ml Balance 600 ml MARCIE GLASER DO Jul 09, 2019 10:56
[2019-07-09] MEDS ORDERED: IPRATROPIUM 0.5MG/ALBUTEROL 2.5MG INH SOL UD 3ML (DUONEB)(J7620) NEB PRN (11:00)
[2019-07-09] MEDS ORDERED: METOPROLOL TART 25 MG TABLET PO ONE (11:00)
[2019-07-09 11:27] LABS: HEMOGLOBIN A1c 14.4 %
[2019-07-09] MEDS: HumaLOG INSULIN (NovoLOG) PER UNIT SC SCH ×3 (12:59→20:16)
[2019-07-09] MEDS: ASPIRIN 81 MG CHEW TABLET PO SCH (13:04)
[2019-07-09] MEDS: IPRATROPIUM 0.5MG/ALBUTEROL 2.5MG INH SOL UD 3ML (DUONEB)(J7620) NEB SCH ×2 (14:00→21:02)
[2019-07-09 14:17] LABS: HEMATOCRIT 39.3 % (36.0-47.0); MEAN CORPUSCULAR HEMOGLOBIN 30.5 pg (27.0-33.0); MEAN CORPUSCULAR HGB CONC 33.1 g/dl (32.0-36.5); MEAN CORPUSCULAR VOLUME 92.3 fl (80.0-96.0); PLATELET COUNT, AUTOMATED 224 10^3/uL (150-450); RED BLOOD COUNT 4.26 10^6/uL (4.00-5.40); WHITE BLOOD COUNT 9.6 10^3/uL (4.0-10.0)
[2019-07-09 14:36] LABS: BLOOD UREA NITROGEN 22 MG/DL (7-18); CALCIUM LEVEL 7.9 MG/DL (8.8-10.2); CARBON DIOXIDE LEVEL 24 MEQ/L (21-32); CHLORIDE LEVEL 105 MEQ/L (98-107); GLOMERULAR FILTRATION RATE > 60.0 (>45); GLUCOSE, FASTING 99 MG/DL (70-100); PHOSPHORUS LEVEL 1.1 MG/DL (2.5-4.9); POTASSIUM SERUM 4.1 MEQ/L (3.5-5.1); SODIUM LEVEL 137 MEQ/L (136-145)
[2019-07-09 18:32] LABS: HEMATOCRIT 36.6 % (36.0-47.0); HEMOGLOBIN 12.1 g/dl (12.0-15.5); MEAN CORPUSCULAR HEMOGLOBIN 30.3 pg (27.0-33.0); MEAN CORPUSCULAR HGB CONC 33.1 g/dl (32.0-36.5); MEAN CORPUSCULAR VOLUME 91.7 fl (80.0-96.0); PLATELET COUNT, AUTOMATED 207 10^3/uL (150-450); RED BLOOD COUNT 3.99 10^6/uL (4.00-5.40); WHITE BLOOD COUNT 9.7 10^3/uL (4.0-10.0)
[2019-07-09 19:05] LABS: BLOOD UREA NITROGEN 21 MG/DL (7-18); CALCIUM LEVEL 7.4 MG/DL (8.8-10.2); CARBON DIOXIDE LEVEL 25 MEQ/L (21-32); CHLORIDE LEVEL 104 MEQ/L (98-107); CREATININE FOR GFR 0.77 MG/DL (0.55-1.30); GLOMERULAR FILTRATION RATE > 60.0 (>45); GLUCOSE, FASTING 123 MG/DL (70-100); PHOSPHORUS LEVEL 1.6 MG/DL (2.5-4.9); POTASSIUM SERUM 4.1 MEQ/L (3.5-5.1); SODIUM LEVEL 136 MEQ/L (136-145)
--- NOTE | 2019-07-09 20:36 | REP ---
Clinical: Shortness of breath . Comparison: 07/09/2019 . Findings: The mediastinum and cardiac silhouette are stable and within normal limits for portable technique. Evidence of prior sternotomy. The lung werner demonstrate diffuse chronic interstitial changes without acute consolidation, effusion, or pneumothorax. Skeletal structures are intact. Impression: Stable chronic changes. No acute cardiopulmonary process appreciated. Electronically Signed by Manuel Rico MD 07/09/2019 08:27 P
[2019-07-09] MEDS ORDERED: METOPROLOL TART 25 MG TABLET PO SCH (21:00)
[2019-07-09 21:15] LABS: NT-PRO BNP 1158 PG/ML (<125); TROPONIN I < 0.02 NG/ML (< 0.10)
[2019-07-09] MEDS ORDERED: guaiFENesin SYRUP 200 MG/10 ML UDC PO PRN (21:15)
[2019-07-09] MEDS: ACETAMINOPHEN 500 MG TAB PO PRN (21:26)
[2019-07-09] MEDS: LEVALBUTEROL 1.25 MG/0.5 ML CONCENTRATE NEB INH PRN (21:40)
[2019-07-09 23:01] LABS: HEMATOCRIT 37.1 % (36.0-47.0); HEMOGLOBIN 11.9 g/dl (12.0-15.5); MEAN CORPUSCULAR HEMOGLOBIN 29.5 pg (27.0-33.0); MEAN CORPUSCULAR HGB CONC 32.1 g/dl (32.0-36.5); MEAN CORPUSCULAR VOLUME 92.1 fl (80.0-96.0); PLATELET COUNT, AUTOMATED 187 10^3/uL (150-450); RED BLOOD COUNT 4.03 10^6/uL (4.00-5.40); WHITE BLOOD COUNT 8.9 10^3/uL (4.0-10.0)
[2019-07-10] MEDS: LEVALBUTEROL 1.25 MG/0.5 ML CONCENTRATE NEB INH PRN ×2 (00:32→06:29)
[2019-07-10] MEDS: IPRATROPIUM 0.5MG/ALBUTEROL 2.5MG INH SOL UD 3ML (DUONEB)(J7620) NEB SCH ×4 (00:32→19:57)
[2019-07-10 06:00] VITALS: BP 119/69
[2019-07-10 06:13] LABS: HEMATOCRIT 35.6 % (36.0-47.0); HEMOGLOBIN 11.7 g/dl (12.0-15.5); MEAN CORPUSCULAR HEMOGLOBIN 30.2 pg (27.0-33.0); MEAN CORPUSCULAR HGB CONC 32.9 g/dl (32.0-36.5); PLATELET COUNT, AUTOMATED 187 10^3/uL (150-450); RED BLOOD COUNT 3.87 10^6/uL (4.00-5.40)
[2019-07-10 06:31] LABS: BLOOD UREA NITROGEN 15 MG/DL (7-18); CALCIUM LEVEL 7.7 MG/DL (8.8-10.2); CARBON DIOXIDE LEVEL 25 MEQ/L (21-32); CHLORIDE LEVEL 103 MEQ/L (98-107); CREATININE FOR GFR 0.68 MG/DL (0.55-1.30); GLOMERULAR FILTRATION RATE > 60.0 (>45); GLUCOSE, FASTING 179 MG/DL (70-100); MAGNESIUM LEVEL 2.1 MG/DL (1.8-2.4); POTASSIUM SERUM 4.1 MEQ/L (3.5-5.1); SODIUM LEVEL 136 MEQ/L (136-145)
--- NOTE | 2019-07-10 07:28 | ECGEPIP ---
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
[2019-07-10] MEDS: HumaLOG INSULIN (NovoLOG) PER UNIT SC SCH ×4 (07:30→20:24)
[2019-07-10] MEDS: METOPROLOL TART 12.5 MG PER 1/2 TAB PO SCH ×2 (08:25→20:57)
[2019-07-10] MEDS: ASPIRIN 81 MG CHEW TABLET PO SCH (08:25)
[2019-07-10] MEDS: OMEPRAZOLE 20 MG CAP PO SCH (08:25)
[2019-07-10] MEDS: HEPARIN SOD (PORCINE) 5000 UNITS/ML VIAL SC SCH ×2 (08:26→20:31)
[2019-07-10 11:18] LABS: HEMOGLOBIN 11.6 g/dl (12.0-15.5); MEAN CORPUSCULAR HEMOGLOBIN 29.9 pg (27.0-33.0); MEAN CORPUSCULAR HGB CONC 32.2 g/dl (32.0-36.5); MEAN CORPUSCULAR VOLUME 92.8 fl (80.0-96.0); PLATELET COUNT, AUTOMATED 181 10^3/uL (150-450); RED BLOOD COUNT 3.88 10^6/uL (4.00-5.40); WHITE BLOOD COUNT 5.9 10^3/uL (4.0-10.0)
--- NOTE | 2019-07-10 11:42 | IPNPDOC ---
Text Note Date of Service The patient was seen on 07/10/19. NOTE Subjective: Patient complains of cough. Patient has fever, chills, nausea, vom iting, diarrhea or dysuria Objective: GENERAL: No distress HEENT: Normocephalic, atraumatic, dry mucous membranes NECK: Supple, PERRLA, EOMI CARDIOVASCULAR EXAMINATION: S1, S2, tachycardic RESPIRATORY EXAMINATION: Coarse lung sounds bilaterally, diminished ABDOMINAL EXAMINATION: Soft, mild epigastric tenderness to palpation, nondistended, positive bowel sounds EXTREMITIES: Range of motion intact SKIN: No rash NEUROLOGICAL EXAMINATION: Alert and oriented 3, no focal deficits PSYCHIATRIC EXAMINATION: Calm and cooperative ASSESSMENT: 64-year-old female with past medical history diabetes mellitus, COPD, coronary artery disease, status post CABG is being admitted for diabetic ketoacidosis. PLAN: 1. Diabetic ketoacidosis Resolved High anion gap closed Patient started eating, glucose levels under control Insulin sliding scale Diabetes diet 2. COPD exacerbation Patient is active smoker, 1 pack a day Developed cough and greenish sputum Chest x-ray didn't show any acute infiltrate Continue Levofloxacin IV Sputum culture pending 3. Coronary artery disease. Status post CABG in 2018 I started aspirin and metoprolol Echo pending 4. Acute on chronic kidney disease Secondary to dehydration due to DKA Improved Continue IV hydration VS,Elpidiobone, I+O VS, Fishbone, I+O Laboratory Tests 07/09/19 14:09 07/09/19 18:14 07/09/19 22:54 07/10/19 05:21 07/10/19 11:06 Vital Signs Date Time Temp Pulse Resp B/P (MAP) Pulse Ox O2 Delivery O2 Flow Rate FiO2 07/10/19 09:00 0.5 07/10/19 08:25 90 106/59 07/10/19 06:35 18 07/10/19 06:00 98.2 94 Nasal Cannula I&O- Last 24 Hours up to 6 AM 07/10/19 06:00 Intake Total 2258 ml Output Total 0 ml Balance 2258 ml MARCIE GLASER DO Jul 10, 2019 11:42
[2019-07-10] MEDS: FUROSEMIDE 20 MG TAB PO SCH (13:15)
[2019-07-10 14:00] VITALS: BP 108/58
--- NOTE | 2019-07-10 14:10 | ECHO ---
DATE OF SERVICE: 07/09/2019 REFERRING PROVIDER: Dr. Shawn Peres PATIENT LOCATION: Room 4230 REASON FOR THE STUDY: Heart failure. 2D MEASUREMENTS: IVS: 0.9 cm LV: 8.8 cm LVPW: 0.9 cm LA: 3.2 cm Aorta: 2.7 cm IVC: 1.5 cm DOPPLER MEASUREMENTS: Peak velocity across the aortic valve: 1.1 m/s Peak velocity across the LVOT: 0.9 m/s Mitral E: 0.6 Mitral A: 0.8 with a ratio of 0.8 Maximum tricuspid valve velocity: 2.2 m/s 2D COMMENTS: 1. Normal left ventricular size, wall thickness, and normal global left ventricular systolic function. The estimated left ventricular systolic fraction is 55-60%. 2. Normal left atrium. Normal right atrium and right ventricle. 3. The atrial septum appeared to be normal without evidence of defect or shunt. 4. Normal aortic root. 5. Trace pericardial effusion noted, no evidence of cardiac tamponde. 6. Minimally calcified aortic valve with normal leaflet excursion. Mildly calcified mitral annulus with normal anterior mitral valve leaflet motion. Normal tricuspid valve and pulmonic valve. The proximal pulmonary artery branches were not well visualized. The inferior vena cava was normal in size, central venous pressure is most likely normal. DOPPLER: It detects mild mitral regurgitation, mild tricuspid regurgitation, and trace pulmonic regurgitation. The calculated pulmonary artery systolic pressure was normal. Abnormal relaxation pattern was noted across the mitral valve leaflets as well as the mitral valve annulus consistent with features of grade 1 left ventricular diastolic dysfunction. IMPRESSION: 1. Normal global left ventricular systolic function. There is some features of grade 1 left ventricular diastolic dysfunction manifested by abnormal relaxation. 2. Mitral annulus calcification with mild mitral regurgitation, but no mitral stenosis. 3. Mild tricuspid radiation with a normal calculated pulmonary artery systolic pressure. 4. Trace pericardial effusion noted, no evidence of cardiac tamponade. 5. Trace pulmonic regurgitation. 6. Not mentioned above, the Global Longitudinal Strain/GLS was reported to be 11.8, putting the patient at high risk to develop heart failure in the future. MTDD
[2019-07-10 17:23] LABS: HEMATOCRIT 37.4 % (36.0-47.0); HEMOGLOBIN 12.1 g/dl (12.0-15.5); MEAN CORPUSCULAR HEMOGLOBIN 29.8 pg (27.0-33.0); MEAN CORPUSCULAR HGB CONC 32.4 g/dl (32.0-36.5); MEAN CORPUSCULAR VOLUME 92.1 fl (80.0-96.0); PLATELET COUNT, AUTOMATED 179 10^3/uL (150-450); RED BLOOD COUNT 4.06 10^6/uL (4.00-5.40); WHITE BLOOD COUNT 5.7 10^3/uL (4.0-10.0)
[2019-07-10 20:54] VITALS: BP 96/52
[2019-07-10 22:00] VITALS: BP 108/52
[2019-07-10 23:05] LABS: HEMATOCRIT 36.7 % (36.0-47.0); HEMOGLOBIN 11.8 g/dl (12.0-15.5); MEAN CORPUSCULAR HEMOGLOBIN 29.7 pg (27.0-33.0); MEAN CORPUSCULAR HGB CONC 32.2 g/dl (32.0-36.5); MEAN CORPUSCULAR VOLUME 92.4 fl (80.0-96.0); PLATELET COUNT, AUTOMATED 184 10^3/uL (150-450); RED BLOOD COUNT 3.97 10^6/uL (4.00-5.40); WHITE BLOOD COUNT 5.5 10^3/uL (4.0-10.0)
[2019-07-11] MEDS: IPRATROPIUM 0.5MG/ALBUTEROL 2.5MG INH SOL UD 3ML (DUONEB)(J7620) NEB SCH ×4 (02:00→19:48)
[2019-07-11 06:00] VITALS: BP 130/70
[2019-07-11] MEDS ORDERED: LevoFLOXacin 750 MG TABLET PO SCH (06:00)
[2019-07-11 06:28] LABS: HEMATOCRIT 38.9 % (36.0-47.0); HEMOGLOBIN 12.6 g/dl (12.0-15.5); MEAN CORPUSCULAR HEMOGLOBIN 29.6 pg (27.0-33.0); MEAN CORPUSCULAR HGB CONC 32.4 g/dl (32.0-36.5); MEAN CORPUSCULAR VOLUME 91.3 fl (80.0-96.0); PLATELET COUNT, AUTOMATED 190 10^3/uL (150-450); RED BLOOD COUNT 4.26 10^6/uL (4.00-5.40); WHITE BLOOD COUNT 4.4 10^3/uL (4.0-10.0)
[2019-07-11 06:57] LABS: BLOOD UREA NITROGEN 12 MG/DL (7-18); CALCIUM LEVEL 8.1 MG/DL (8.8-10.2); CARBON DIOXIDE LEVEL 29 MEQ/L (21-32); CHLORIDE LEVEL 100 MEQ/L (98-107); CREATININE FOR GFR 0.73 MG/DL (0.55-1.30); GLOMERULAR FILTRATION RATE > 60.0 (>45); GLUCOSE, FASTING 311 MG/DL (70-100); POTASSIUM SERUM 3.4 MEQ/L (3.5-5.1); SODIUM LEVEL 136 MEQ/L (136-145)
[2019-07-11] MEDS ORDERED: POTASSIUM CHLORIDE 10 MEQ SR TABLET PO ONE (07:45)
--- NOTE | 2019-07-11 07:51 | ECGEPIP ---
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
[2019-07-11] MEDS: HumaLOG INSULIN (NovoLOG) PER UNIT SC SCH ×4 (08:05→22:04)
[2019-07-11] MEDS: LEVEMIR (INSULIN DETEMIR) 1 UNITS/0.01ML SC SCH ×2 (08:05→22:05)
[2019-07-11] MEDS: ASPIRIN 81 MG CHEW TABLET PO SCH (08:06)
[2019-07-11] MEDS: OMEPRAZOLE 20 MG CAP PO SCH (08:08)
[2019-07-11] MEDS: FUROSEMIDE 20 MG TAB PO SCH (08:08)
[2019-07-11] MEDS: METOPROLOL TART 12.5 MG PER 1/2 TAB PO SCH ×2 (08:08→22:06)
[2019-07-11] MEDS: HEPARIN SOD (PORCINE) 5000 UNITS/ML VIAL SC SCH ×2 (08:09→22:06)
--- NOTE | 2019-07-11 13:30 | IPNPDOC ---
Text Note Date of Service The patient was seen on 07/11/19. NOTE Subjective: Patient states that she feels better, less cough, sputum changed c olor from greenish to yellowish. Patient has fever, chills, nausea, vomiting, diarrhea or dysuria Objective: GENERAL: No distress HEENT: Normocephalic, atraumatic, dry mucous membranes NECK: Supple, PERRLA, EOMI CARDIOVASCULAR EXAMINATION: S1, S2, tachycardic RESPIRATORY EXAMINATION: Coarse lung sounds bilaterally, diminished ABDOMINAL EXAMINATION: Soft, mild epigastric tenderness to palpation, nondistended, positive bowel sounds EXTREMITIES: Range of motion intact SKIN: No rash NEUROLOGICAL EXAMINATION: Alert and oriented 3, no focal deficits PSYCHIATRIC EXAMINATION: Calm and cooperative 2D MEASUREMENTS: IVS: 0.9 cm LV: 8.8 cm LVPW: 0.9 cm LA: 3.2 cm Aorta: 2.7 cm IVC: 1.5 cm DOPPLER MEASUREMENTS: Peak velocity across the aortic valve: 1.1 m/s Peak velocity across the LVOT: 0.9 m/s Mitral E: 0.6 Mitral A: 0.8 with a ratio of 0.8 Maximum tricuspid valve velocity: 2.2 m/s 2D COMMENTS: 1. Normal left ventricular size, wall thickness, and normal global left ventricular systolic function. The estimated left ventricular systolic fraction is 55-60%. 2. Normal left atrium. Normal right atrium and right ventricle. 3. The atrial septum appeared to be normal without evidence of defect or shunt. 4. Normal aortic root. 5. Trace pericardial effusion noted, no evidence of cardiac tamponde. 6. Minimally calcified aortic valve with normal leaflet excursion. Mildly calcified mitral annulus with normal anterior mitral valve leaflet motion. Normal tricuspid valve and pulmonic valve. The proximal pulmonary artery branches were not well visualized. The inferior vena cava was normal in size, central venous pressure is most likely normal. Doppler, it detects mild mitral regurgitation, mild tricuspid regurgitation, and trace pulmonic regurgitation. The calculated pulmonary artery systolic pressure was normal. Abnormal relaxation pattern was noted across the mitral valve leaflets as well as the mitral valve annulus consistent with features of grade 1 left ventricular diastolic dysfunction. IMPRESSION: 1. Normal global left ventricular systolic function. There is some features of grade 1 left ventricular diastolic dysfunction manifested by abnormal relax ation. 2. Mitral annulus calcification with mild mitral regurgitation, but no mitral stenosis. 3. Mild tricuspid radiation with a normal calculated pulmonary artery systolic pressure. 4. Trace pericardial effusion noted, no evidence of cardiac tamponade. 5. Trace pulmonic regurgitation. 6. , the global longitudinal strand and was reported to be 11.8, putting the patient at high risk to develop heart failure in the future. DD: VERONIQUE FIGUEROA MD 07/10/19 0152 DT: QUETA 07/10/19 0649 DS: ASSESSMENT: 64-year-old female with past medical history diabetes mellitus, COPD, coronary artery disease, status post CABG is being admitted for diabetic ketoacidosis. PLAN: 1. Diabetic ketoacidosis Resolved High anion gap closed Patient started eating, glucose levels under control Insulin sliding scale I added basal insulin due to hyperglycemia of 300 in the morning Diabetes diet Diabetes education 2. COPD exacerbation Improved Patient is active smoker, 1 pack a day Developed cough and greenish sputum Chest x-ray didn't show any acute infiltrate Continue Levofloxacin by mouth 3. Coronary artery disease. Status post CABG in 2018 I started aspirin and metoprolol 4. Acute on chronic kidney disease Secondary to dehydration due to DKA Improved VS,Fishbone, I+O VS, Fishbone, I+O Laboratory Tests 07/10/19 17:17 07/10/19 23:00 07/11/19 05:54 Vital Signs Date Time Temp Pulse Resp B/P (MAP) Pulse Ox O2 Delivery O2 Flow Rate FiO2 07/11/19 08:08 110 109/62 07/11/19 06:00 98.1 22 98 Nasal Cannula 1.0 I&O- Last 24 Hours up to 6 AM 07/11/19 06:00 Intake Total 660 ml Output Total 1400 ml Balance -740 ml MARCIE GLASER DO Jul 11, 2019 13:30
[2019-07-11 14:00] VITALS: BP 104/53
[2019-07-11 22:00] VITALS: BP 117/61
[2019-07-12] MEDS: IPRATROPIUM 0.5MG/ALBUTEROL 2.5MG INH SOL UD 3ML (DUONEB)(J7620) NEB SCH ×3 (01:38→14:00)
[2019-07-12] MEDS: ACETAMINOPHEN 500 MG TAB PO PRN (02:49)
[2019-07-12 06:00] VITALS: BP 104/55
[2019-07-12 06:29] LABS: BLOOD UREA NITROGEN 11 MG/DL (7-18); CALCIUM LEVEL 8.2 MG/DL (8.8-10.2); CARBON DIOXIDE LEVEL 30 MEQ/L (21-32); CHLORIDE LEVEL 100 MEQ/L (98-107); CREATININE FOR GFR 0.62 MG/DL (0.55-1.30); GLOMERULAR FILTRATION RATE > 60.0 (>45); GLUCOSE, FASTING 188 MG/DL (70-100); MAGNESIUM LEVEL 1.9 MG/DL (1.8-2.4); POTASSIUM SERUM 3.5 MEQ/L (3.5-5.1); SODIUM LEVEL 137 MEQ/L (136-145)
[2019-07-12] MEDS: HumaLOG INSULIN (NovoLOG) PER UNIT SC SCH ×2 (08:03→11:43)
[2019-07-12] MEDS: LEVEMIR (INSULIN DETEMIR) 1 UNITS/0.01ML SC SCH (08:04)
[2019-07-12] MEDS: HEPARIN SOD (PORCINE) 5000 UNITS/ML VIAL SC SCH (08:04)
[2019-07-12] MEDS: ASPIRIN 81 MG CHEW TABLET PO SCH (08:04)
[2019-07-12 08:05] VITALS: BP 119/91
[2019-07-12] MEDS: OMEPRAZOLE 20 MG CAP PO SCH (08:05)
[2019-07-12] MEDS: METOPROLOL TART 12.5 MG PER 1/2 TAB PO SCH (08:05)
[2019-07-12] MEDS: FUROSEMIDE 20 MG TAB PO SCH (08:05)
[2019-07-12] MEDS ORDERED: FURO20TA2 PO (10:43)
[2019-07-12] MEDS ORDERED: LEVA750T7 PO (10:43)
[2019-07-12] MEDS ORDERED: LANTINJ4 SC (10:43)
[2019-07-12] MEDS ORDERED: OMEP-218 PO (10:43)
[2019-07-12] MEDS ORDERED: METO1TAB87 PO (10:43)
[2019-07-12] MEDS ORDERED: ASPI81CH8 PO (10:43)
--- NOTE | 2019-07-12 18:16 | DS.PDOC ---
Discharge Summary General Date of Admission Jul 09, 2019 at 01:05 Date of Discharge 07/12/19 Discharge Summary PROCEDURES PERFORMED DURING STAY: [None]. ADMITTING DIAGNOSES: Diabetic ketoacidosis COPD exacerbation Coronary artery disease Acute on chronic kidney disease DISCHARGE DIAGNOSES: Diabetic ketoacidosis COPD exacerbation Coronary artery disease Acute on chronic kidney disease COMPLICATIONS/CHIEF COMPLAINT: Coronary Artery Disease. HISTORY OF PRESENT ILLNESS: HISTORY OF PRESENT ILLNESS: 64-year-old female with past medical history of diabetes mellitus, COPD, coronary artery disease status post CABG in 2018, presents with worsening abdominal pain. She had similar symptoms a few days ago, presented to the ED and was discharged home. She reports progression of symptoms with worsening abdominal pain with associated nausea, poor oral intake and decreased urination. In the ED, she is found to have high anion gap metabolic acidosis with significant hyperglycemia and elevated beta hydroxy butyrate levels. She denies any shortness of breath, chest pain, headache, diarrhea or constipation. HOSPITAL COURSE: During hospital stay the following issue addressed Diabetic ketoacidosis Patient received treatment with insulin drip. Blood glucose level stabilized. Patient has poorly controlled diabetes with HbA1c 14 High anion gap closed Patient started eating, glucose levels under control Insulin sliding scale I added basal insulin Diabetes diet Diabetes education 2. COPD exacerbation Improved Patient is active smoker, 1 pack a day Developed cough and greenish sputum Chest x-ray didn't show any acute infiltrate Levofloxacin by mouth 3. Coronary artery disease. Status post CABG in 2018 I started aspirin and metoprolol 4. Acute on chronic kidney disease Secondary to dehydration due to DKA Improved DISCHARGE MEDICATIONS: Please see below. ALLERGIES: Please see below. PHYSICAL EXAMINATION ON DISCHARGE: VITAL SIGNS: Please see below. NECK: Supple, PERRLA, EOMI CARDIOVASCULAR EXAMINATION: S1, S2, tachycardic RESPIRATORY EXAMINATION: Coarse lung sounds bilaterally, diminished ABDOMINAL EXAMINATION: Soft, mild epigastric tenderness to palpation, nondistended, positive bowel sounds EXTREMITIES: Range of motion intact SKIN: No rash NEUROLOGICAL EXAMINATION: Alert and oriented 3, no focal deficits PSYCHIATRIC EXAMINATION: Calm and cooperative LABORATORY DATA: Please see below. IMAGIND MEASUREMENTS: IVS: 0.9 cm LV: 8.8 cm LVPW: 0.9 cm LA: 3.2 cm Aorta: 2.7 cm IVC: 1.5 cm DOPPLER MEASUREMENTS: Peak velocity across the aortic valve: 1.1 m/s Peak velocity across the LVOT: 0.9 m/s Mitral E: 0.6 Mitral A: 0.8 with a ratio of 0.8 Maximum tricuspid valve velocity: 2.2 m/s 2D COMMENTS: 1. Normal left ventricular size, wall thickness, and normal global left ventricular systolic function. The estimated left ventricular systolic fraction is 55-60%. 2. Normal left atrium. Normal right atrium and right ventricle. 3. The atrial septum appeared to be normal without evidence of defect or shunt. 4. Normal aortic root. 5. Trace pericardial effusion noted, no evidence of cardiac tamponde. 6. Minimally calcified aortic valve with normal leaflet excursion. Mildly calcified mitral annulus with normal anterior mitral valve leaflet motion. Normal tricuspid valve and pulmonic valve. The proximal pulmonary artery branches were not well visualized. The inferior vena cava was normal in size, central venous pressure is most likely normal. Doppler, it detects mild mitral regurgitation, mild tricuspid regurgitation, and trace pulmonic regurgitation. The calculated pulmonary artery systolic pressure was normal. Abnormal relaxation pattern was noted across the mitral valve leaflets as well as the mitral valve annulus consistent with features of grade 1 left ventricular diastolic dysfunction. PROGNOSIS: Favorable ACTIVITY: As tolerated. DIET: Diabetes DISCHARGE PLAN: Home with home health DISPOSITION: Home, Self-Care. DISCHARGE INSTRUCTIONS: Monitor blood glucose level ITEMS TO FOLLOWUP ON ON OUTPATIENT: PCP DISCHARGE CONDITION: Stable TIME SPENT ON DISCHARGE: Greater than 15 minutes. Vital Signs/I&Os Vital Signs Date Time Temp Pulse Resp B/P (MAP) Pulse Ox O2 Delivery O2 Flow Rate FiO2 07/12/19 08:05 116 119/91 07/12/19 06:00 99.1 20 94 Room Air 07/11/19 06:00 1.0 I&O- Last 24 Hours up to 6 AM 07/12/19 06:00 Intake Total 1500 ml Output Total 950 ml Balance 550 ml Laboratory Data Labs 24H Laboratory Tests 2 07/11/19 21:47: Bedside Glucose (Misc Panel) 386H 07/12/19 05:35: Anion Gap 7L, Glomerular Filtration Rate > 60.0, Calcium Level 8.2L, Magnesium Level 1.9 07/12/19 11:33: Bedside Glucose (Misc Panel) 346H CBC/BMP Laboratory Tests 07/12/19 05:35 FSBS Laboratory Tests Test 07/11/19 21:47 07/12/19 11:33 Range/Units Bedside Glucose (Misc Panel) 386 346 80-115 MG/DL Microbiology Microbiology 07/09/19 Gram Stain - Final, Complete 07/09/19 Sputum Culture - Final, Complete Streptococcus Pneumoniae 07/09/19 Blood Culture - Preliminary, Resulted No Growth after 72 hours. All specime... Discharge Medications Scheduled Aspirin (Children's Aspirin) 81 Mg Tab.chew, 81 MG PO DAILY Furosemide (Furosemide) 20 Mg Tablet, 20 MG PO DAILY Insulin Glargine,Hum.rec.anlog (Lantus Solostar) 100 Unit/1 Ml Insuln.pen, 8 UNIT SC QPM Levofloxacin (Levaquin) 750 Mg Tablet, 750 MG PO Q48H Metformin HCl (Metformin HCl) 500 Mg Tablet, 500 MG PO BID, (Reported) Metoprolol Tartrate (Metoprolol Tartrate) 25 Mg Tablet, 12.5 MG PO BID Omeprazole (Omeprazole) 20 Mg Capsule.dr, 20 MG PO DAILY Allergies Coded Allergies: aspirin (Unverified Adverse Reaction, Mild, NAUSEA, 10/05/18) MARCIE GLASER DO Jul 12, 2019 18:16
[2019-07-12] MEDS ORDERED: BD I1MIS14 SC (22:06)
[2019-07-12] MEDS ORDERED: CVS1KIT XX (22:06)
[2019-07-14] MEDS ORDERED: BLOOKIT21 XX (07:58)
[2019-07-14] MEDS ORDERED: LANC30MI XX (07:58)
[2019-07-14] MEDS ORDERED: PEN1MIS21 SC (07:58)
[2019-07-14] MEDS ORDERED: GLUC1TES2 XX (07:58)
== END 2019-07-12 13:30 | disposition home health service (06) | DRG 638 ==
LOC: M ED 21:36 → M ED INP 07-09 01:05 → M ICU 07-09 02:08 → M MSPAV 07-09 10:28
PROVIDERS: ADMIT Internal Medicine; ATTEND Internal Medicine
DX: E11.10 Type 2 diabetes mellitus with ketoacidosis without coma (principal); J44.1 Chronic obstructive pulmonary disease with (acute) exacerbation; I25.10 Atherosclerotic heart disease of native coronary artery without angina pectoris; F17.200 Nicotine dependence, unspecified, uncomplicated; E11.22 Type 2 diabetes mellitus with diabetic chronic kidney disease; E11.65 Type 2 diabetes mellitus with hyperglycemia; N18.9 Chronic kidney disease, unspecified; Z95.1 Presence of aortocoronary bypass graft; Z90.49 Acquired absence of other specified parts of digestive tract; Z88.6 Allergy status to analgesic agent; Z79.84 Long term (current) use of oral hypoglycemic drugs

== ENCOUNTER 2019-08-14 05:55 | Emergency (ER) | payer MEDICARE, MEDICAID ==
[~2019-08-14] VITALS: Ht 165.1 cm; Wt 37.0 kg
[~2019-08-14 05:55] MED LIST changes: +ASPI81CH8 PO; +BD I1MIS14 SC; +BLOOKIT21 XX; +CVS1KIT XX; +FURO20TA2 PO; +GLUC1TES2 XX; +LANC30MI XX; +LEVA750T7 PO; +OMEP-218 PO; +PEN1MIS21 SC
[2019-08-14 06:35] LABS: BASO # 0.1 10^3/uL (0.0-0.2); BASO % 0.9 % (0.0-1.0); EOS # 0.2 10^3/uL (0.0-0.5); EOS % 1.9 % (0.0-3.0); HEMATOCRIT 39.9 % (36.0-47.0); HEMOGLOBIN 12.9 g/dl (12.0-15.5); LYMPH # 3.1 10^3/uL (1.5-5.0); LYMPH % 29.4 % (24.0-44.0); MEAN CORPUSCULAR HGB CONC 32.3 g/dl (32.0-36.5); MEAN CORPUSCULAR VOLUME 92.8 fl (80.0-96.0); MONO # 0.8 10^3/uL (0.0-0.8); MONO % 7.4 % (0.0-5.0); NEUTROPHILS # 6.3 10^3/uL (1.5-8.5); PLATELET COUNT, AUTOMATED 308 10^3/uL (150-450); WHITE BLOOD COUNT 10.5 10^3/uL (4.0-10.0)
[2019-08-14 07:00] LABS: BLOOD UREA NITROGEN 13 MG/DL (7-18); CALCIUM LEVEL 8.4 MG/DL (8.8-10.2); CARBON DIOXIDE LEVEL 29 MEQ/L (21-32); CHLORIDE LEVEL 105 MEQ/L (98-107); CK-MB VALUE MASS < 1.0 NG/ML (<3.6); CPK CREATINE PHOSPHOKINASE 56 U/L (26-192); CREATININE FOR GFR 0.75 MG/DL (0.55-1.30); GLOMERULAR FILTRATION RATE > 60.0 (>45); GLUCOSE, FASTING 218 MG/DL (70-100); MB/CK RELATIVE INDEX 1.79 (< OR =4); NT-PRO BNP 296 PG/ML (<125); POTASSIUM SERUM 4.1 MEQ/L (3.5-5.1); SODIUM LEVEL 140 MEQ/L (136-145); TROPONIN I < 0.02 NG/ML (< 0.10)
--- NOTE | 2019-08-14 07:26 | REP ---
Portable chest, 06:39 a.m., single AP view with the patient upright: Comparison is 07/09 two 19. The lung werner are clear. The cardiac size is normal. The mario, mediastinum, and skeletal structures are unremarkable. Impression: Negative portable chest. There is no interval change. Electronically Signed by Levar St MD 08/14/2019 07:18 A
[2019-08-14] MEDS ORDERED: IPRATROPIUM 0.5MG/ALBUTEROL 2.5MG INH SOL UD 3ML (DUONEB)(J7620) NEB ONE (07:30)
--- NOTE | 2019-08-14 08:30 | REP ---
CT CHEST WITHOUT CONTRAST: HISTORY: Productive cough. Left chest pain. Comparison is made with today's portable chest x-ray. Comparison chest CT study October 05, 2018. CT FINDINGS: The lungs show hyperinflation. Emphysematous changes are noted in the upper lobes and fairly extensively bilaterally. There are mild areas of fibroatelectatic change in the right middle lobe and lingula. These are more prominent than on the prior CT study of October 05, 2018. Today's CT study demonstrates a spiculated nodular opacity in the left lower lobe infrahilar region adjacent to the major fissure which is a new opacity. This measures 2.3 cm in greatest craniocaudal span x 1.4 x 1.5 cm in transverse dimension. Coronal MPR images demonstrate an obstructed airway at the level of this spiculated nodular density. Primary bronchogenic malignancy must be suspected. This is new from the prior study. There is a tiny bullous in the left lower lobe near the base lateral and inferior to this lesion which appears to be partially filled with fluid. On the right in the upper lobe, there is a 5 mm less than solid somewhat irregular nodule on page 41 of 107 in series 201 of today's study which was not visible previously. There are two tiny nodular opacities in the right lower lobe 3 mm in diameter on pages 58 and 59. These do not appear to have been present previously either. There is no evidence of pleural or pericardial effusion. There is a precarinal lymph node measuring 13 mm in short axis dimension, which appears to be new. There are scattered smaller lymph nodes in the anterior perivascular mediastinum and there is a second pretracheal lymph node measuring 6 mm in short axis dimension. This was not apparent previously. No adrenal lesion is seen. There are two or three small renal cysts which appear unchanged from the August 11, [address] study. The patient status post prior median sternotomy. IMPRESSION: New spiculated perihilar 2.3 cm left lower lobe nodule with an obstructed subsegmental bronchus suspicious for primary lung CA. Emphysematous changes/COPD. Small subcentimeter nodules on the right of uncertain etiology. Right middle lobe and lingular atelectatic changes. Electronically Signed by Vipul Torres MD 08/14/2019 09:26 A
[2019-08-14 11:06] LABS: CPK CREATINE PHOSPHOKINASE 35 U/L (26-192)
[2019-08-14 11:07] LABS: CK-MB VALUE MASS < 1.0 NG/ML (<3.6); MB/CK RELATIVE INDEX 2.86 (< OR =4); TROPONIN I < 0.02 NG/ML (< 0.10)
[2019-08-14] MEDS ORDERED: AZIT500T5 PO (12:10)
[2019-08-14 12:30] VITALS: BP 103/62
--- NOTE | 2019-08-14 15:02 | ECGEPIP ---
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
--- NOTE | 2019-08-14 15:04 | ECGEPIP ---
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
--- NOTE | 2019-08-17 09:34 | ED PDOC ---
Post-Departure Follow-Up franco pedraza and max faxed formal report of ct chest for fu Olga Rahman MD Aug 17, 2019 09:34
== END 2019-08-14 12:39 | disposition home or self-care (01) ==
LOC: M ED 05:55
DX: R91.8 Other nonspecific abnormal finding of lung field (principal); J44.9 Chronic obstructive pulmonary disease, unspecified; I45.10 Unspecified right bundle-branch block; E11.9 Type 2 diabetes mellitus without complications; I10 Essential (primary) hypertension; I25.10 Atherosclerotic heart disease of native coronary artery without angina pectoris; E78.5 Hyperlipidemia, unspecified; Z88.8 Allergy status to other drugs, medicaments and biological substances; F17.210 Nicotine dependence, cigarettes, uncomplicated

== ENCOUNTER → 2019-08-29 | Outpatient (REF) | payer MEDICARE, MEDICAID ==
[~2019-08-29] MED LIST changes: +AZIT500T5 PO
[2019-08-29 13:55] LABS: PLATELET COUNT, AUTOMATED 320 10^3/uL (150-450)
[2019-08-29 14:10] LABS: INR 0.91; PROTHROMBIN TIME 11.9 SECONDS (11.8-14.0)
[2019-08-29 14:11] LABS: PARTIAL THROMBOPLASTIN TIME 24.8 SECONDS (25.0-38.4)
== END ==
LOC: M LAB REF 13:39
PROVIDERS: ATTEND Internal Medicine Pulmonary Disease
DX: J44.9 Chronic obstructive pulmonary disease, unspecified (principal); Z79.01 Long term (current) use of anticoagulants

== ENCOUNTER → 2019-09-09 | Outpatient (CLI) | payer MEDICARE, MEDICAID ==
--- NOTE | 2019-09-09 08:49 | REPVR ---
PROCEDURE INFORMATION: Exam: CT Chest Without Contrast Exam date and time: 09/09/2019 7:37 AM Age: 64 years old Clinical indication: Abnormal findings; Lung mass or nodule; Not specified; Additional info: Non specific abnormal finding of lung field TECHNIQUE: Imaging protocol: Computed tomography of the chest without contrast. 3D rendering: MIP and/or 3D reconstructed images were created by the technologist. Radiation optimization: All CT scans at this facility use at least one of these dose optimization techniques: automated exposure control; mA and/or kV adjustment per patient size (includes targeted exams where dose is matched to clinical indication); or iterative reconstruction. COMPARISON: CT Chest without contrast 08/14/2019 7:49 AM FINDINGS: Lungs: A 12 x 14 mm spiculated nodule is again seen in the central left lung associated with the anterior basal segmental bronchus on axial images 54 through 62. There is peripheral atelectatic change a 6 mm nodule posterior to the major fissure on axial image 6. Subsegmental atelectatic changes are seen in the left lateral costophrenic sulcus on axial in the 7. Atelectatic changes of the right middle lobe and lingula have improved. Moderate centrilobular emphysematous changes are present in the lungs. Pleural space: Unremarkable. No pneumothorax. No pleural effusion. Heart: Sternotomy wires and mediastinal surgical clips are present, consistent with previous coronary arterial bypass grafting. Aorta: Unremarkable. No aortic aneurysm. Lymph nodes: Unremarkable. No enlarged lymph nodes. Liver: Upper abdomen: The visualized portions of the liver, pancreas, adrenal glands, and spleen show no significant abnormalities. Kidneys and ureters: There are bilateral renal cortical cysts more numerous on the without benefit contrast enhanced imaging for discrimination of complex features. Bones/joints: Unremarkable. No acute fracture. Soft tissues: Unremarkable. IMPRESSION: 1. A 12 x 14 mm spiculated nodule is again seen in the central left lung associated with the anterior basal segmental bronchus on axial images 54 through 62. There is peripheral atelectatic change a 6 mm nodule posterior to the major fissure on axial image 6. The central lesion may be amenable to brochoscopic biopsy. 2. There are bilateral renal cortical cysts more numerous on the without benefit contrast enhanced imaging for discrimination of complex features. RECOMMENDATION: As per revised Fleischner Society guidelines for follow-up and management of pulmonary nodules: Recommend initial follow-up chest CT at 3 months with followup consideration at 18 to 24 months. Consider contrast enhanced chest CT, PET scan and/or biopsy as clinically warranted. Electronically signed by: Felipe Padgett On 09/09/2019 08:49:22 AM
== END ==
LOC: M RAD 07:09
PROVIDERS: ATTEND Internal Medicine Pulmonary Disease
DX: R91.8 Other nonspecific abnormal finding of lung field (principal)

== ENCOUNTER 2019-10-02 07:55 | Day surgery (SDC) | payer MEDICARE, MEDICAID ==
[~2019-10-02] VITALS: Ht 160 cm; Wt 45.7 kg
[~2019-10-02 07:55] MED LIST changes: +CETACAINE SPRAY 5GM As Ordered ONE; +EPINEPHrine 1MG/10ML SYRINGE 1.5IN As Ordered ONE; +LIDOCAINE 1% SDV 30ML VIAL As Ordered ONE; +LIDOCAINE VISCOUS 2% SOLN 15ML UDC As Ordered ONE; +LR 1,000 ML IV ONE; +THROMBIN SOLN 5,000 UNITS VIAL As Ordered ONE
[2019-10-02] MEDS ORDERED: MIDAZOLAM INJ 2MG/2ML VIAL (J2250 PER 1MG) As Ordered ONE (08:14)
[2019-10-02] MEDS ORDERED: ROCURONIUM BROMIDE 50 MG/5 ML VIAL As Ordered ONE (08:14)
[2019-10-02] MEDS ORDERED: propofoL 200 MG/20 ML VIAL As Ordered ONE (08:14)
[2019-10-02] MEDS ORDERED: fentaNYL 100 MCG/2 ML INJECTION (J3010) As Ordered ONE (08:14)
[2019-10-02] MEDS ORDERED: LIDOCAINE 2% 100MG/5ML SDV (FOR ANES.) As Ordered ONE (08:14)
[2019-10-02] MEDS ORDERED: HumaLOG INSULIN (NovoLOG) PER UNIT SC ONE (09:00)
[2019-10-02] MEDS ORDERED: PHENYLephrine HCL 500 MCG/5 ML (100MCG/ML) SYRINGE (J2370) As Ordered ONE ×2 (09:47→10:02)
[2019-10-02] MEDS ORDERED: dexameTHASONE 4 MG/ML 1ML VIAL (J1100 PER 1MG) As Ordered ONE ×2 (09:48→09:49)
[2019-10-02] MEDS ORDERED: ONDANSETRON 4MG/2ML VIAL As Ordered ONE (09:49)
[2019-10-02] MEDS ORDERED: SUGAMMADEX SODIUM 500 MG/5 ML VIAL (BRIDION) As Ordered ONE (09:49)
[2019-10-02] MEDS ORDERED: KETOROLAC 60 MG/2 ML VIAL As Ordered ONE (09:49)
[2019-10-02] MEDS ORDERED: METOCLOPRAMIDE INJ 10MG/2ML VIAL (J2765 PER 1) As Ordered ONE (09:51)
[2019-10-02] MEDS ORDERED: SUCCINYLCHOLINE 100 MG/5 ML SYRINGE (J0330) As Ordered ONE (09:53)
[2019-10-02] MEDS ORDERED: KETOROLAC 30 MG/ML 1ML VIAL IV PRN (10:00)
[2019-10-02] MEDS ORDERED: LACRILUBE (AKWA TEARS) OPHTH OINT 3.5 GM As Ordered ONE (10:37)
[2019-10-02] MEDS ORDERED: PERCOCET 5MG/325MG TAB PO PRN (11:00)
[2019-10-02] MEDS ORDERED: LR 1,000 ML IV SCH (11:00)
[2019-10-02] MEDS ORDERED: ONDANSETRON 4MG/2ML VIAL IV PRN (11:00)
--- NOTE | 2019-10-02 11:19 | REP ---
Portable chest x-ray: Single view. History: Postop. Comparison chest x-ray: August 14, 2019. Findings: There is hazy interstitial opacity in the left base and and ill-defined fullness is seen in the left infrahilar region unchanged. There is no evidence of pneumothorax or hydrothorax. Heart size is normal. Median sternotomy wires are noted. There is some hyperinflation overall consistent with COPD. Impression: Ill-defined interstitial infiltrate left base. Hazy rounded opacity left infrahilar region. No complication is seen. Electronically Signed by Vipul Torres MD 10/02/2019 11:11 A
--- NOTE | 2019-10-02 11:34 | ROOR ---
Patient Name: Harvey Allred Procedure Date: 10/02/2019 8:43 AM Date of : 1955 Admit Type: Outpatient Age: 64 Note Status: Finalized Attending MD: Shani Matta MD Procedure: Bronchoscopy Indications: Left lower lobe nodule, Mediastinal adenopathy Providers: Shani Matta MD (Doctor) Referring MD: 1. No Referring Physician 1. No Referring Physician, Admin. (Referring MD) Requesting Physician: Medicines: General Anesthesia, Cetacaine topical Complications: No immediate complications. Estimated blood loss: Minimal Procedure: Pre-Anesthesia Assessment: - Prior to the procedure, a History and Physical was performed, and patient medications and allergies were reviewed. The patient's tolerance of previous anesthesia was also reviewed. The risks and benefits of the procedure and the sedation options and risks were discussed with the patient. All questions were answered, and informed consent was obtained. Prior Anticoagulants: The patient has taken aspirin, last dose was day of procedure. ASA Grade Assessment: III - A patient with severe systemic disease. After reviewing the risks and benefits, the patient was deemed in satisfactory condition to undergo the procedure. The Bronchoscope was introduced through the mouth, via the endotracheal tube (the patient was intubated for the procedure) and advanced to the tracheobronchial tree of both lungs. The procedure was accomplished without difficulty. The patient tolerated the procedure well. Findings: Respiratory tract: The trachea is of normal caliber. The ed is sharp. The entire tracheobronchial tree was examined to at least the first subsegmental level. Bronchial anatomy was normal; there were no endobronchial lesions. Bronchial mucosa with mild pitting and webbing and few thick white/clear mucoid secretions noted throughout bronchial tree. In the left lower lobe, the mucosa in the anterior medial segment appeared edematous and friable with narrowing of the anterior medial segmental orifice. Electromagnetic navigation bronchoscopy utilizing the PunchTab system with iLogic upgrade was performed. The CT scan was used for planning purposes. A virtual bronchoscopic image was generated using the planning software and the ed, left main bronchus ed, left lower lobe basilar segment, right upper lobe, right middle lobe and right lower lobe basilar segment registration points were marked on the virtual image. The target in the anterior medial segment of the left lower lobe was marked. A nodule 2.3 cm in size was found and a pathway was created. After a complete airway exam, the locatable guide/extended working channel was inserted and an automatic registration was performed by advancing the scope through the ed, left main bronchus ed, left lower lobe basilar segment, right upper lobe, right middle lobe and right lower lobe basilar segment. The navigation phase was then begun to locate the target lesion(s). Positioning centrally (in relation to the lesion) was confirmed using the Olympus radial probe US catheter. The locatable guide was removed from the extended working channel. Fluoroscopy guided transbronchial brushings of a nodule were obtained in the anterior medial segment of the left lower lobe with a needle brush and sent for routine cytology. Transbronchial brushing technique was selected because the sampling site was not accessible using standard endoscopic (bronchoscopic) techniques. Transbronchial biopsies of a nodule were performed in the anterior medial segment of the left lower lobe using forceps and sent for histopathology examination. The procedure was guided by fluoroscopy. Transbronchial biopsy technique was selected because the sampling site was not visible endoscopically. Transbronchial needle aspirations of a nodule were performed in the anterior medial segment of the left lower lobe using GenCut and sent for routine cytology. The procedure was guided by fluoroscopy. Transbronchial needle aspiration technique was selected because the sampling site was not visible endoscopically. An endobronchial ultrasound endoscope was utilized in order to assist with fine needle aspiration in the right paratracheal area and in the left hilum. The subcarinal lymph node was visualized, was not pathologically enlarged and was not sampled. Transbronchial needle aspirations of lymph nodes were performed in the right paratracheal area and in the left hilum (station I0L and 11L) using an Olympus EBUS-TBNA 21 gauge needle and sent for routine cytology. The procedure was guided by ultrasound. Transbronchial needle aspiration technique was selected because the sampling site was not visible endoscopically. Bronchoalveolar lavage was performed in the LLL anterior medial segments (B7 & B8) of the lung and sent for cell count, bacterial culture, and fungal & AFB analysis and cytology. The return was blood-tinged. Mucous plugs were present in the return fluid. Impression: - Left lower lobe nodule - Electromagnetic navigation bronchoscopy was performed. - Transbronchial brushings were obtained. - Transbronchial lung biopsies were performed. - A transbronchial needle aspiration was performed. - Endobronchial ultrasound was performed. - A transbronchial needle aspiration was performed. - Bronchoalveolar lavage was performed. Recommendation: - Await test results. Attending Participation: I personally performed the entire procedure. Shani Matta MD 10/02/2019 11:33:42 AM Number of Addenda: 0 Note Initiated On: 10/02/2019 8:43 AM
[2019-10-02 13:10] VITALS: BP 95/60
[2019-10-02 13:12] LABS: COLOR PINK (COLORLESS); SOURCE LEFT LOWER LOBE
[2019-10-02 13:13] LABS: APPEARANCE CLOTTED (CLEAR)
[2019-10-02 13:17] LABS: MONOCYTES/MACROPHAGES, BAL 15 %
[2019-11-20] MEDS ORDERED: ALBU83IN INH (14:53)
[2019-11-20] MEDS ORDERED: PROAAER10 INH (14:53)
== END 2019-10-02 13:15 | disposition home or self-care (01) ==
LOC: M SDC 07:55
PROVIDERS: ATTEND Internal Medicine Pulmonary Disease
DX: R91.1 Solitary pulmonary nodule (principal); J44.9 Chronic obstructive pulmonary disease, unspecified; R59.0 Localized enlarged lymph nodes; E11.9 Type 2 diabetes mellitus without complications; I10 Essential (primary) hypertension; I25.10 Atherosclerotic heart disease of native coronary artery without angina pectoris; Z95.1 Presence of aortocoronary bypass graft; F17.218 Nicotine dependence, cigarettes, with other nicotine-induced disorders; Z79.84 Long term (current) use of oral hypoglycemic drugs; Z79.82 Long term (current) use of aspirin; Z88.8 Allergy status to other drugs, medicaments and biological substances
CPT/HCPCS: 31623; 31624; 31627; 31628; 31629; 31652; 71045; 76000; 87070; 87077; 87102; 87116; 87184; 87205; 87206; 88104; 88108; 88173; 88305; 88313; 89051; J0330; J1100; J1885; J2250; J2370; J2405; J2765; J3010

== ENCOUNTER → 2019-10-22 | Outpatient (CLI) | payer MEDICARE, MEDICAID ==
[~2019-10-22] MED LIST changes: -CETACAINE SPRAY 5GM As Ordered ONE; -EPINEPHrine 1MG/10ML SYRINGE 1.5IN As Ordered ONE; -LIDOCAINE 1% SDV 30ML VIAL As Ordered ONE; -LIDOCAINE VISCOUS 2% SOLN 15ML UDC As Ordered ONE; -LR 1,000 ML IV ONE; -THROMBIN SOLN 5,000 UNITS VIAL As Ordered ONE
--- NOTE | 2019-10-24 12:47 | REP ---
PET/CT: HISTORY: Diagnosing left lower lobe lung nodule. COMPARISONS: Comparison CT study September 09, 2019. TECHNIQUE: 58 minutes following the intravenous injection of a 8.30 mCi dose of F-18 FDG, three-dimensional PET scintigraphy is acquired from the skull base to the proximal thighs. Triplanar noncontrast CT scanning is acquired through the same anatomic range for attenuation correction, and image registration with scan parameters optimized to minimize radiation exposure to the patient. PET scintigraphy and CT datasets were fused and displayed on a workstation with multiplanar and projection display capability. PET/CT FINDINGS: In the head and neck soft tissues, there is uptake in the anterior tip of the tongue, which is most likely normal variant. Muscle activity. Head and neck soft tissues are otherwise unremarkable. The known left lower lobe spiculated nodule is hypermetabolic. Maximum standard uptake value within this is 5.30. There is no other abnormal hypermetabolic uptake in the chest. Hilar or mediastinal hypermetabolic uptake is seen. There is mildly increased uptake along the patient's sternotomy distally. This it is most likely postsurgical. No abnormal adrenal hypermetabolic uptake is seen. In the abdomen and pelvis, there is normal hepatic, splenic, gastrointestinal, and genitourinary FDG accumulation. No abnormal hypermetabolic uptake is seen in the abdomen or pelvis. IMPRESSION: The suspicious nodule in the left lower lobe is hypermetabolic. No other suspicious hypermetabolic uptake is seen. Electronically Signed by Vipul Torres MD 10/24/2019 01:14 P
== END ==
LOC: M PLARAD 12:26
PROVIDERS: ATTEND Internal Medicine Pulmonary Disease
DX: R91.1 Solitary pulmonary nodule (principal)
CPT/HCPCS: 78815; A9552

== ENCOUNTER → 2019-11-13 | Outpatient (CLI) | payer MEDICARE, MEDICAID ==
--- NOTE | 2019-11-13 16:23 | REP ---
CT CHEST WITHOUT CONTRAST: CT chest performed without IV contrast and compared to prior studies, most recently 09/09/2019. The left hilar mass has increased in size. Current measurements are approximately 2.3 x 2.9 cm. Margins are spiculated. Ill-defined parenchymal densities extend inferior to the mass in the anterobasilar segment of the left lower lobe. There are, otherwise, chronic pleural and parenchymal densities and scarring bilaterally. There is mild emphysematous change. There are multiple sternal wires. Heart is not enlarged. There is no pleural or pericardial effusion. There are multiple mediastinal clips present. Thoracic aorta is not enlarged. No mediastinal or axillary adenopathy is seen. Visualized upper abdominal structures are grossly unremarkable. There are mild degenerative changes of the spine. IMPRESSION: Increased size of spiculated left hilar mass. Ill-defined parenchymal opacities extend inferiorly in the anterobasilar segment of the left lower lobe. This may indicate postobstructive atelectasis or infiltrate. No other mass or adenopathy is seen. Electronically Signed by Levar Paul MD 11/13/2019 04:31 P
== END ==
LOC: M RAD 15:08
PROVIDERS: ATTEND Internal Medicine Pulmonary Disease
DX: R91.1 Solitary pulmonary nodule (principal)

== ENCOUNTER → 2019-11-14 | Outpatient (REF) | payer MEDICARE, MEDICAID ==
[~2019-11-14] MED LIST changes: +ALBU83IN INH; +PROAAER10 INH
[2019-11-14 17:29] LABS: PLATELET COUNT, AUTOMATED 270 10^3/uL (150-450)
[2019-11-14 17:32] LABS: INR 0.93; PROTHROMBIN TIME 12.1 SECONDS (11.8-14.0)
[2019-11-14 17:33] LABS: PARTIAL THROMBOPLASTIN TIME 23.6 SECONDS (25.0-38.4)
[2019-11-14 18:19] LABS: BLOOD UREA NITROGEN 16 MG/DL (7-18); CALCIUM LEVEL 8.9 MG/DL (8.8-10.2); CARBON DIOXIDE LEVEL 29 MEQ/L (21-32); CHLORIDE LEVEL 96 MEQ/L (98-107); CREATININE FOR GFR 0.74 MG/DL (0.55-1.30); GLOMERULAR FILTRATION RATE > 60.0 (>45); GLUCOSE, FASTING 446 MG/DL (70-100); POTASSIUM SERUM 4.5 MEQ/L (3.5-5.1); SODIUM LEVEL 134 MEQ/L (136-145)
== END ==
LOC: M LAB REF 16:45
PROVIDERS: ATTEND Internal Medicine Pulmonary Disease
DX: R91.1 Solitary pulmonary nodule (principal)

== ENCOUNTER → 2019-11-25 | Outpatient (CLI) | payer MEDICARE, MEDICAID ==
[~2019-11-25] MED LIST changes: +TREL1AER INH
== END ==
LOC: M LABSMTC 09:28
PROVIDERS: ATTEND Anesthesiology
DX: Z01.812 Encounter for preprocedural laboratory examination (principal); Z11.59 Encounter for screening for other viral diseases
CPT/HCPCS: C9803; U0002

== ENCOUNTER 2019-11-27 06:54 | Day surgery (SDC) | payer MEDICARE, MEDICAID ==
[~2019-11-27] VITALS: Ht 160 cm; Wt 44.8 kg
[~2019-11-27 06:54] MED LIST changes: -TREL1AER INH
[2019-11-27] MEDS ORDERED: LR 1,000 ML IV ONE (07:00)
[2019-11-27] MEDS ORDERED: TREL1AER INH (07:21)
[2019-11-27] MEDS ORDERED: LIDOCAINE 1% SDV 30ML VIAL As Ordered ONE (07:21)
[2019-11-27] MEDS ORDERED: EPINEPHrine 1MG/10ML SYRINGE 1.5IN As Ordered ONE (07:21)
[2019-11-27] MEDS ORDERED: CETACAINE SPRAY 5GM As Ordered ONE (07:22)
[2019-11-27] MEDS ORDERED: LIDOCAINE VISCOUS 2% SOLN 15ML UDC As Ordered ONE (07:23)
[2019-11-27] MEDS ORDERED: HumaLOG INSULIN (NovoLOG) PER UNIT SC ONE (08:15)
[2019-11-27] MEDS ORDERED: LIDOCAINE 2% 100MG/5ML SDV (FOR ANES.) As Ordered ONE (10:17)
[2019-11-27] MEDS ORDERED: PHENYLephrine HCL 500 MCG/5 ML (100MCG/ML) SYRINGE (J2370) As Ordered ONE (10:17)
[2019-11-27] MEDS ORDERED: propofoL 200 MG/20 ML VIAL As Ordered ONE (10:17)
[2019-11-27] MEDS ORDERED: ROCURONIUM BROMIDE 50 MG/5 ML VIAL As Ordered ONE (10:17)
[2019-11-27] MEDS ORDERED: ePHEDrine SULFATE 25 MG/5 ML(5MG/ML) SYRINGE As Ordered ONE (10:17)
[2019-11-27] MEDS ORDERED: fentaNYL 100 MCG/2 ML INJECTION (J3010) As Ordered ONE (10:17)
[2019-11-27] MEDS ORDERED: SUGAMMADEX SODIUM 500 MG/5 ML VIAL (BRIDION) As Ordered ONE (10:17)
[2019-11-27] MEDS ORDERED: MIDAZOLAM INJ 2MG/2ML VIAL (J2250 PER 1MG) As Ordered ONE (10:17)
[2019-11-27] MEDS ORDERED: dexameTHASONE 4 MG/ML 1ML VIAL (J1100 PER 1MG) As Ordered ONE (10:17)
[2019-11-27] MEDS ORDERED: PERCOCET 5MG/325MG TAB PO PRN (11:30)
[2019-11-27] MEDS ORDERED: ONDANSETRON 4MG/2ML VIAL IV PRN (11:30)
[2019-11-27] MEDS ORDERED: LR 1,000 ML IV SCH (11:30)
[2019-11-27] MEDS ORDERED: fentaNYL 100 MCG/2 ML INJECTION (J3010) IV PRN (11:30)
[2019-11-27] MEDS ORDERED: METOCLOPRAMIDE INJ 10MG/2ML VIAL (J2765 PER 1) IV PRN (11:30)
--- NOTE | 2019-11-27 11:48 | ROOR ---
Patient Name: Harvey Allred Procedure Date: 11/27/2019 7:51 AM Date of : 1955 Admit Type: Outpatient Age: 64 Note Status: Finalized Attending MD: Shani Matta MD Procedure: Bronchoscopy Indications: Left lower lobe mass Providers: Shani Matta MD (Doctor) Referring MD: 1. No Referring Physician 1. No Referring Physician, Admin. (Referring MD) Requesting Physician: Medicines: General Anesthesia, Cetacaine topical Complications: No immediate complications. Estimated blood loss: Minimal Procedure: Pre-Anesthesia Assessment: - Prior to the procedure, a History and Physical was performed, and patient medications and allergies were reviewed. The patient's tolerance of previous anesthesia was also reviewed. The risks and benefits of the procedure and the sedation options and risks were discussed with the patient. All questions were answered, and informed consent was obtained. Prior Anticoagulants: The patient has taken aspirin, last dose was day of procedure. ASA Grade Assessment: III - A patient with severe systemic disease. After reviewing the risks and benefits, the patient was deemed in satisfactory condition to undergo the procedure. The Bronchoscope was introduced through the mouth, via the endotracheal tube (the patient was intubated for the procedure) and advanced to the tracheobronchial tree of both lungs. The procedure was accomplished without difficulty. The patient tolerated the procedure well. Findings: Respiratory tract: The trachea is of normal caliber. The ed is sharp. The entire tracheobronchial tree was examined to at least the first subsegmental level. Bronchial anatomy are normal; there were scant mucoid secretions noted and bronchial mucosa showed some pitting and webbing. There was mucosal abnormality noted in the anterior medial segment of the left lower lobe. The was narrowing of the oriface to the anterior medial segment of left lower lobe with near total occlusion and mucosa which was thickened, edematous and friable. The mucosa of left lower lobe lateral basal segment showed some edema. Brushings of a mucosal thickening and edema were obtained in the anterior medial segment of the left lower lobe with a cytology brush and sent for routine cytology. Electromagnetic navigation bronchoscopy utilizing the Concert Windows[employer] system with iLogic upgrade was performed. The CT scan was used for planning purposes. A virtual bronchoscopic image was generated using the planning software and the ed, left main bronchus ed, left lower lobe basilar segment, right upper lobe, right middle lobe and right lower lobe basilar segment registration points were marked on the virtual image. The target in the anterior medial segment of the left lower lobe was marked. A nodule 2.9 cm in size was found and a pathway was created. After a complete airway exam, the locatable guide/extended working channel was inserted and an automatic registration was performed by advancing the scope through the ed, left main bronchus ed, left lower lobe basilar segment, right upper lobe, right middle lobe and right lower lobe basilar segment. The navigation phase was then begun to locate the target lesion(s). Positioning centrally (in relation to the lesion) was confirmed using the Olympus radial probe US catheter. The locatable guide was removed from the extended working channel. Transbronchial needle aspirations of a nodule were performed in the anterior medial segment of the left lower lobe using a fine (21 gauge) needle and sent for routine cytology. The procedure was guided by fluoroscopy. Transbronchial needle aspiration technique was selected because the sampling site was not visible endoscopically. Transbronchial biopsies of a nodule were performed in the anterior medial segment of the left lower lobe using forceps and sent for histopathology examination. The procedure was guided by fluoroscopy. Transbronchial biopsy technique was selected because the sampling site was not visible endoscopically. Fiducial marker placement was performed. Once the target lesion was identified, two markers were deployed in and around the lesion 2 mm apart in the anterior medial segment of the left lower lobe. Bronchoalveolar lavage was performed in the left lower lobe of the lung and sent for routine cytology, aerobic culture and anaerobic culture. The return was blood-tinged. Mucous plugs were present in the return fluid. An endobronchial ultrasound endoscope was utilized in order to assist with fine needle aspiration in the subcarinal area and in the left hilum. Transbronchial needle aspirations of lymph nodes were performed in the subcarinal area and in the left hilum using an Olympus EBUS-TBNA 21 gauge needle and sent for routine cytology. The procedure was guided by ultrasound. Transbronchial needle aspiration technique was selected because the sampling site was not visible endoscopically. Estimated blood loss: minimal. Impression: - Left lower lobe mass - Brushings were obtained. - Electromagnetic navigation bronchoscopy was performed. - A transbronchial needle aspiration was performed. - Transbronchial lung biopsies were performed. - Fiducial markers were deployed. - Bronchoalveolar lavage was performed. - Endobronchial ultrasound was performed. - A transbronchial needle aspiration was performed on lymph nodes. Recommendation: - Await test results. Attending Participation: I personally performed the entire procedure. Shani Matta MD 11/27/2019 11:47:49 AM Number of Addenda: 0 Note Initiated On: 11/27/2019 7:51 AM
--- NOTE | 2019-11-27 11:53 | REP ---
PORTABLE CHEST: AP portable view of the chest is performed. The patient had bronchoscopy. Two metallic clips are now seen in the left retrocardiac region at the site of a mass density. No pneumothorax or acute infiltrate is seen. The heart is normal in size. There are multiple sternal wires present. Electronically Signed by Levar Paul MD 11/27/2019 04:42 P
[2019-11-27 13:45] VITALS: BP 104/55
== END 2019-11-27 13:50 | disposition home or self-care (01) ==
LOC: M SDC 06:54
PROVIDERS: ATTEND Internal Medicine Pulmonary Disease
DX: C34.32 Malignant neoplasm of lower lobe, left bronchus or lung (principal); C77.1 Secondary and unspecified malignant neoplasm of intrathoracic lymph nodes; J44.9 Chronic obstructive pulmonary disease, unspecified; I10 Essential (primary) hypertension; I25.10 Atherosclerotic heart disease of native coronary artery without angina pectoris; I25.2 Old myocardial infarction; E11.9 Type 2 diabetes mellitus without complications; Z79.84 Long term (current) use of oral hypoglycemic drugs; Z79.82 Long term (current) use of aspirin; Z79.4 Long term (current) use of insulin; Z79.51 Long term (current) use of inhaled steroids; Z88.8 Allergy status to other drugs, medicaments and biological substances
CPT/HCPCS: 31623; 31624; 31626; 31627; 31628; 31629; 31652; 71045; 76000; 87070; 87205; 88104; 88108; 88173; 88305; 88313; A4648; J1100; J2250; J2370; J3010

== ENCOUNTER 2020-04-13 01:47 | Emergency (ER) | payer MEDICARE, MEDICAID ==
[~2020-04-13] VITALS: Ht 160 cm; Wt 38.6 kg
[~2020-04-13 01:47] MED LIST changes: +TREL1AER INH
[2020-04-13 02:13] LABS: BASO # 0.1 10^3/uL (0.0-0.2); BASO % 0.9 % (0.0-1.0); EOS # 0.1 10^3/uL (0.0-0.5); EOS % 1.8 % (0.0-3.0); HEMATOCRIT 42.7 % (36.0-47.0); HEMOGLOBIN 14.4 g/dl (12.0-15.5); LYMPH # 1.9 10^3/uL (1.5-5.0); LYMPH % 27.9 % (24.0-44.0); MEAN CORPUSCULAR HEMOGLOBIN 30.3 pg (27.0-33.0); MEAN CORPUSCULAR HGB CONC 33.7 g/dl (32.0-36.5); MEAN CORPUSCULAR VOLUME 89.7 fl (80.0-96.0); MONO # 0.6 10^3/uL (0.0-0.8); MONO % 8.3 % (0.0-5.0); NEUTROPHILS # 4.1 10^3/uL (1.5-8.5); NEUTROPHILS % 60.9 % (36.0-66.0); PLATELET COUNT, AUTOMATED 261 10^3/uL (150-450); RED BLOOD COUNT 4.76 10^6/uL (4.00-5.40); WHITE BLOOD COUNT 6.7 10^3/uL (4.0-10.0)
[2020-04-13] MEDS ORDERED: ISOVUE-370 76% 100ML VIAL As Ordered ONE (02:38)
[2020-04-13 02:40] VITALS: BP 150/79
--- NOTE | 2020-04-13 02:43 | REPVR ---
PROCEDURE INFORMATION: Exam: XR Chest, 1 View Exam date and time: 04/13/20 (2:12am) Age: 64 years old Clinical indication: Chest pain TECHNIQUE: Imaging protocol: Portable CXR Views: 1 view COMPARISON: Portable CXR of 11/27/19 FINDINGS: Comparison is made with a portable CXR done on 11/27/19. Two small surgical clips are again seen in the left infrahilar region. No focal infiltrates. No pleural effusions. Previous sternotomy. Normal heart size. Some hyperinflation is evident. IMPRESSION: No acute findings. The lung werner remain clear. Previous sternotomy. See additional comments above. Electronically signed by: Glenda Merida On 04/13/2020 02:42:57 AM
[2020-04-13] MEDS ORDERED: COMBIVENT RESPIMAT 100-20MCG INHALER 4GM INH ONE (02:45)
[2020-04-13] MEDS ORDERED: NITROGLYCERIN 0.4 MG SUBL TABLET SL PRN (02:45)
[2020-04-13 02:53] LABS: CALCIUM LEVEL 9.1 MG/DL (8.8-10.2); CREATININE FOR GFR 1.06 MG/DL (0.55-1.30); GLOMERULAR FILTRATION RATE 55.2 (>45); POTASSIUM SERUM 3.9 MEQ/L (3.5-5.1)
[2020-04-13] MEDS ORDERED: HumuLIN R (REGULAR) INSULIN (NovoLIN R) **100U/ML** PER UNIT SC ONE (03:00)
[2020-04-13] MEDS ORDERED: fentaNYL 100 MCG/2 ML INJECTION (J3010) IV ONE (03:00)
--- NOTE | 2020-04-13 03:39 | REPVR ---
PROCEDURE INFORMATION: Exam: CT Angiography Chest with Contrast Exam date and time: 04/13/20 (3:02am) Age: 64 years old Clinical indication: Chest pain. History of cancer. Previous left perihilar lung mass. TECHNIQUE: Imaging protocol: Computed tomographic angiography of the chest with intravenous contrast. 3D rendering (Not supervised by radiologist): MIP and/or 3D reconstructed images were created by the technologist. Radiation optimization: All CT scans at this facility use at least one of these dose optimization techniques: automated exposure control; mA and/or kV adjustment per patient size (includes targeted exams where dose is matched to clinical indication); or iterative reconstruction. Contrast material: Iso 370 Contrast volume: 75 ml Contrast route: IV COMPARISON: CTA CHEST of 10/05/18 FINDINGS: Pulmonary arteries: Normal. No pulmonary emboli. Aorta: Unremarkable. No aortic aneurysm. No aortic dissection. Lungs: Streaky and hazy parenchymal changes posterior and inferior to the left hilum, with 2 surgical clips in this area (at the location of previous left lung mass). Small amount of residual tumor tissue here cannot be excluded (Ser. 401 - Images #111 - #120). No dense consolidation. Some pulmonary hyperinflation. Pleural space: Unremarkable. No pneumothorax. No pleural effusions. Heart: Unremarkable. No cardiomegaly. No pericardial effusion. Lymph nodes: Unremarkable. No enlarged lymph nodes. Bones/joints: No acute fracture. Previous sternotomy. Soft tissues: Unremarkable. Upper abdomen: Small left renal cysts (unchanged from November 2019). IMPRESSION: No acute findings. No filling defects suspicious for pulmonary emboli are seen. There is no CT evidence of aortic dissection nor leakage. No aortic aneurysm is appreciated. Previous surgery, posterior and inferior to left hilum, at the site of a previous spiculated left lung mass. Probable post-operative changes here. Small amount of residual tumor tissue here cannot be excluded. Electronically signed by: Glenda Merida On 04/13/2020 03:39:29 AM
--- NOTE | 2020-04-13 06:29 | ECGEPIP ---
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
[2020-04-13 08:51] VITALS: BP 122/71
--- NOTE | 2020-04-13 19:41 | ECGEPIP ---
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
== END 2020-04-13 09:02 | disposition home or self-care (01) ==
LOC: M ED 01:47
DX: R07.89 Other chest pain (principal); E11.65 Type 2 diabetes mellitus with hyperglycemia; I45.10 Unspecified right bundle-branch block; C34.90 Malignant neoplasm of unspecified part of unspecified bronchus or lung; I25.10 Atherosclerotic heart disease of native coronary artery without angina pectoris; I25.2 Old myocardial infarction; J44.9 Chronic obstructive pulmonary disease, unspecified; Z95.1 Presence of aortocoronary bypass graft; Z88.6 Allergy status to analgesic agent; F17.210 Nicotine dependence, cigarettes, uncomplicated; Z79.51 Long term (current) use of inhaled steroids; Z79.84 Long term (current) use of oral hypoglycemic drugs
CPT/HCPCS: 71045; 71275; 80047; 80048; 83880; 84484; 85025; 93005; 93041; 94760; 96374; 99285; J3010; Q9967

== ENCOUNTER → 2020-12-30 | Outpatient (CLI) | payer MEDICARE, MEDICAID ==
[~2020-12-30] MED LIST changes: +FERR324T21 PO; -FERR325T16 PO
--- NOTE | 2020-12-30 11:11 | REP ---
INDICATION: SURVEILLENCE RADIATION THERAPY, LUNG CA COMPARISON: Multiple latest 04/13/2020 TECHNIQUE: Standard helical technique without intravenous contrast administration. FINDINGS: The mediastinum and pulmonary mario are essentially unchanged. No adenopathy has developed. There is no pleural or pericardial effusion. There is no significant change in appearance of the imaged upper abdomen or imaged osseous structures. Evaluation of the lung werner shows metallic radiodensities in the left infrahilar region causing spray artifact as on the latest prior consistent with fiducial markers. The small spiculated lesion seen surrounding the fiducial markers appears slightly smaller, however, the asymmetric and patchy and nodular opacities seen in the superior segment left lower lobe have increased. Note is again made of biapical pleuroparenchymal scarring and emphysematous changes. Lung werner are again seen to be hyperexpanded. IMPRESSION: 1. Likely a small decrease in size in the left infrahilar spiculated lesion but seen with increased patchy and somewhat nodular opacities in the superior segment of the left lower lobe possibly secondary to post radiation change. Certainly, tumor extension cannot be ruled out by this exam. Consider follow-up PET-CT for further evaluation. 2. Chronic lung field changes and other findings as described above. <Electronically signed by Alex Mora > 12/30/20 [id number]
== END ==
LOC: M RAD 10:32
PROVIDERS: ATTEND Radiology Radiation Oncology
DX: C34.32 Malignant neoplasm of lower lobe, left bronchus or lung (principal)

== ENCOUNTER 2021-01-29 11:23 | Inpatient (IN) | payer MEDICARE, MEDICAID ==
[~2021-01-29] VITALS: Ht 160 cm; Wt 48.1 kg
[2021-01-29] VITALS (8 sets, daily range): BP systolic 71–147; BP diastolic 43–93; O2SAT 97–99
[2021-01-29] MEDS ORDERED: ONDANSETRON 4MG/2ML VIAL IV ONE ×2 (11:50→14:15)
[2021-01-29] MEDS: MORPHINE 2 MG/ML 1ML VIAL (J2270) IV PRN ×2 (12:07→14:21)
[2021-01-29 12:36] LABS: BASO # 0.1 10^3/uL (0.0-0.2); BASO % 0.4 % (0.0-1.0); HEMATOCRIT 46.2 % (36.0-47.0); HEMOGLOBIN 15.5 g/dl (12.0-15.5); LYMPH # 0.3 10^3/uL (1.5-5.0); LYMPH % 1.6 % (24.0-44.0); MEAN CORPUSCULAR HEMOGLOBIN 29.8 pg (27.0-33.0); MEAN CORPUSCULAR HGB CONC 33.5 g/dl (32.0-36.5); MEAN CORPUSCULAR VOLUME 88.8 fl (80.0-96.0); MONO # 0.3 10^3/uL (0.0-0.8); NEUTROPHILS # 15.9 10^3/uL (1.5-8.5); NEUTROPHILS % 95.5 % (36.0-66.0); PLATELET COUNT, AUTOMATED 174 10^3/uL (150-450); WHITE BLOOD COUNT 16.7 10^3/uL (4.0-10.0)
--- NOTE | 2021-01-29 12:39 | REP ---
INDICATION: CHEST PAIN. COMPARISON: Comparison chest x-ray April 13, 2020. TECHNIQUE: Portable upright AP chest radiograph. FINDINGS: The lungs are symmetrically aerated and free of infiltrate. Median sternotomy wires are noted. EKG electrodes are seen. The pleural angles are sharp. Heart is not enlarged. Pulmonary vasculature is not increased. There is diffuse osteopenia.. IMPRESSION: No active disease. <Electronically signed by Tomi Torres > 01/29/21 [id number]
[2021-01-29 13:17] LABS: ALBUMIN 3.5 GM/DL (3.2-5.2); ALT/SGPT 20 U/L (12-78); BILIRUBIN,DIRECT 0.2 MG/DL (0.0-0.2); BILIRUBIN,TOTAL 0.8 MG/DL (0.2-1.0); BLOOD UREA NITROGEN 19 MG/DL (7-18); CALCIUM LEVEL 9.2 MG/DL (8.8-10.2); CARBON DIOXIDE LEVEL 26 MEQ/L (21-32); CHLORIDE LEVEL 92 MEQ/L (98-107); CK-MB VALUE MASS < 1.0 NG/ML (<3.6); CPK CREATINE PHOSPHOKINASE 60 U/L (26-192); CREATININE FOR GFR 1.12 MG/DL (0.55-1.30); GLOMERULAR FILTRATION RATE 51.7 (>45); GLUCOSE, FASTING 550 MG/DL (70-100); LIPASE 180 U/L (73-393); MB/CK RELATIVE INDEX 1.67 (< OR =4); NT-PRO BNP 755 PG/ML (<125); POTASSIUM SERUM 4.7 MEQ/L (3.5-5.1); SODIUM LEVEL 131 MEQ/L (136-145); TOTAL PROTEIN 7.6 GM/DL (6.4-8.2); TROPONIN I < 0.02 NG/ML (< 0.10)
[2021-01-29] MEDS ORDERED: HumuLIN R (REGULAR) INSULIN (NovoLIN R) **100U/ML** PER UNIT IV ONE (13:50)
[2021-01-29] MEDS ORDERED: ISOVUE-370 76% 100ML VIAL As Ordered ONE (13:54)
--- NOTE | 2021-01-29 14:35 | REP ---
INDICATION: left abd/chest pain. COMPARISON: 12/30/2020 as well as other prior exams. TECHNIQUE: CT angiogram chest performed following the intravenous administration of 100 cc of Isovue 370. Sagittal and coronal reconstruction images are performed. FINDINGS: Lungs: There is diffuse emphysematous and interstitial fibrotic change. The ill-defined, somewhat spiculated nodular opacities in the anterior left lower lobe are unchanged. No acute findings are seen in the lungs. Mediastinum: No adenopathy. Pulmonary arteries: No evidence of pulmonary embolism. Silvana: Left infrahilar soft tissue density containing metallic biopsy clips is unchanged. Axilla: No adenopathy. Pleura: No effusion. Heart: Not enlarged. Thoracic aorta: No aneurysm or dissection. Visualized osseous structures: Unremarkable. IMPRESSION: No CT evidence of pulmonary embolism. No evidence of thoracic aortic aneurysm or dissection. Stable nodular opacities left lower lobe. <Electronically signed by Levar Paul > 01/29/21 [id number]
--- NOTE | 2021-01-29 14:50 | REP ---
INDICATION: left abd/chest pain. COMPARISON: None. TECHNIQUE: Noncontrast scanning through the abdomen and pelvis coronal and sagittal reconstructions. FINDINGS: CT abdomen: Small hiatal hernia suggested. Some fluid seen in the stomach. There is no gross hepatomegaly with the left lobe of the liver is mildly prominent. I see no splenomegaly or focal splenic lesion. No intrahepatic biliary dilatation. There is no adjacent ascites. Gallbladder shows dependent calcifications or gravel. Adrenal glands show slight thickening of limbs suggesting adrenal hyperplasia. The left kidney demonstrates upper pole cyst medially. On the right and left upper kidney there are calcifications consistent with vascular calcification. I do not see collecting system stone or hydronephrosis on the right. Left shows mild hydronephrosis and extrarenal pelvis without collecting system stones. The ureters show no definite stone as they course to the pelvis. Slight dilatation of the left compared to right ureter. The aorta shows calcification without aneurysm. A few scattered periaortic and mesenteric nodes seen but not of pathologic size. Small bowel loops fluid filled without dilatation, air-fluid levels or obstruction. Stool and gas are seen scattered in the colon without mass or colitis in the abdominal portion of colon. No diverticulosis or diverticulitis in that same region. There is no evidence of an appendix. Lung window review shows no perforation or free air. No definite adenopathy. Some sclerotic inferior endplate appearance to the T11 vertebral body without a compression deformity or destructive lesion of the visualized vertebral bodies. Posterior elements grossly intact. The ribs included were unremarkable. CT pelvis: Sacrum, SI joints, pelvis and hips show some degenerative changes without destructive lesion or fracture. Uterus tilted towards the left. There is no pelvic or adnexal mass. There is no pelvic free fluid. The distal left colon, sigmoid and rectum show no sign of colitis, diverticulitis, stricture or mass. Bladder is adequately filled and shows no mass, wall thickening or stone. No ventral or inguinal hernia nor pathologic sized inguinal adenopathy. IMPRESSION: 1. Layered debris/small stones or gravel in the gallbladder. I see no calcification in the common duct within the lidia hepatis or pancreatic head. No inflammatory changes to suggest pancreatitis. 2. Liver, spleen, adrenal glands without acute finding. There is a evidence of adrenal hyperplasia with thickening of adrenal limbs but low-density. 3. Upper left kidney with cysts but no solid mass. There is an extrarenal pelvis and mild left hydronephrosis but no hydroureter, renal or ureteral stones. Both kidneys show vascular calcifications at the hilum. 4. Atherosclerotic calcifications of the aorta without aneurysm. No ascites, perforation, abscess or free air. 5. Bones grossly intact. <Electronically signed by Oscar Soares > 01/29/21 [id number]
[2021-01-29] MEDS ORDERED: ACETAMINOPHEN TAB 650MG DOSE (2X325MG) PO PRN (16:30)
[2021-01-29] MEDS ORDERED: PERCOCET 5MG/325MG TAB PO PRN (16:30)
[2021-01-29] MEDS ORDERED: GLUCOSE 4GM CHEW TABLET PO PRN (16:30)
[2021-01-29] MEDS ORDERED: MAALOX 30 ML SUSP *UDC PO PRN (16:30)
[2021-01-29] MEDS ORDERED: GLUCAGON INJ 1MG VIAL SC PRN (16:30)
[2021-01-29] MEDS ORDERED: DEXTROSE 50% 50 ML SYRINGE IV PRN (16:30)
[2021-01-29] MEDS ORDERED: tiZANidine 4 MG TAB PO PRN (16:30)
[2021-01-29] MEDS ORDERED: MOM 30ML SUSPENSION UDC PO PRN (16:30)
[2021-01-29] MEDS ORDERED: ONDANSETRON 4MG/2ML VIAL IV PRN (16:30)
[2021-01-29] MEDS ORDERED: LANTINJ4 SC (16:48)
[2021-01-29] MEDS ORDERED: PILL CUTTER 1 EACH XX PRN (16:55)
[2021-01-29] MEDS: NS 1,000 ML IV SCH ×2 (17:00→22:39)
[2021-01-29 17:11] LABS: RSV AMPLIFICATION NEGATIVE (NEGATIVE)
--- NOTE | 2021-01-29 17:17 | HPEPDOC ---
[facility] Medical History & Physical Date of Admission Jan 29, 2021 Date of Service: Jan 29, 2021 Attending Physician: VERONICA ZAPATA DO History and Physical CHIEF COMPLAINT: Left rib pain HISTORY OF PRESENT ILLNESS: Patient is a 65-year-old female who presented to the emergency department earlier today with a chief complaint of left-sided rib pain/upper abdominal pain. Patient states that 6 AM she was awoken from sleep with this pain. Patient states that she feels like she has been punched. The p ain has been constant. Patient states she vomited 5 or 6 times and vomited yellow fluid without any blood. Patient states that she was nauseous but is no longer nauseous. Patient denies having any pain anywhere else. Patient had a normal bowel movement earlier this morning. Patient denies having any diarrhea. Patient states that the pain is mildly better. Patient does have type 2 diabetes and has not been taking her medication as prescribed. Patient does have a history of lung cancer and did have radiation to her left lower lung field. Patient relates our oncologist for a recheck as the cancer is in remission. PAST MEDICAL HISTORY: 1. COPD. 2. Type 2 diabetes mellitus. 3. Coronary artery disease. 4. Lung cancer treated with radiation PAST SURGICAL HISTORY: 1. Coronary artery bypass grafting x3. 2. Appendectomy. SOCIAL HISTORY: Patient lives at home with her grandson. 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 Patient smokes 1 pack a day and has been doing it for 40+ years. Patient denies any alcohol or drug use FAMILY HISTORY: Diabetes runs in the family ALLERGIES: Please see below. REVIEW OF SYSTEMS: General: Patient denies fevers HEENT: Patient denies headaches Cardiovascular: Patient denies chest pain Respiratory: Patient denies shortness of breath, cough GI: Patient reports abdominal pain as above. Patient was nauseous but denies any nausea at this time after getting Zofran : Patient denies increased frequency or pain with urination Extremities: Patient denies swelling or pain in extremities Neurological: Patient denies numbness or tingling in legs Skin: Patient denies any new rashes or lesions. Hematologic: Patient denies any easy bruising. Lymphatic: Patient denies any lumps lumps or bumps in neck, axilla, or groin HOME MEDICATIONS: Please see below. PHYSICAL EXAMINATION: VITAL SIGNS: Temperature 96.7, pulse 120, respiratory rate 16, blood pressure 133/69, pulse oximetry 92% on room air. General: Alert and oriented female patient who was laying in bed when I walked in the room. Patient did not appear to be in any acute distress. HEENT: Normocephalic, atraumatic, dry mucous membranes. Neck: No lymphadenopathy or thyromegaly Cardiac: Regular rate and rhythm, no murmurs, normal S1, normal S2 Pulm: Clear to auscultation bilaterally. No wheezes, rhonchi, rales Abd: Nondistended, pain to palpation of the upper abdomen with most of the pain being at the subcostal margin along the floating ribs. No rebound tenderness. Normal bowel sounds. Ext: No edema bilateral lower extremities 2/4 dorsalis pedis pulse bilaterally Neuro: Patient was able to move all 4 extremities on command. Patient reported equal sensation to light touch. Skin: Skin of the head, neck, abdomen, upper and lower extremities was examined not show any evidence of rash or other lesions LABORATORY DATA: See below. IMAGING: Chest x-ray performed on 01/29/2021 was reported to show no active disease CT of the abdomen and pelvis without contrast performed on 01/29/2021 was reported to show layered debris/small stones or gravel in the gallbladder I see no calcification in the common duct within the lidia hepatis or pancreatic head. No inflammatory changes to suggest pancreatitis. Liver, spleen, adrenal glands without acute finding. There is evidence of adrenal hyperplasia with thickened adrenal limits but low density. Upper left kidney with cysts but no solid mass. There is an extrarenal pelvis and mild left hydronephrosis but no hydroureter, renal or ureteral stones. Both kidneys show vascular calcifications at the hilum. Arthrosclerotic calcifications of the aorta without aneurysm. No ascites perforation, abscess or free air. Bones grossly intact. A CT angiogram of the chest performed on 01/29/2021 was reported to show no CT evidence of pulmonary embolism. No evidence of thoracic aortic aneurysm or dissection. Stable nodular opacities left lower lobe. MICROBIOLOGY: Please see below. ASSESSMENT: 65-year-old female who was brought in by EMS secondary to left upper quadrant/rib pain who was found to have a blood sugar at 550. Patient will be admitted for management of her hyperglycemia and the rib pain.. . PLAN: 1. Hyperglycemia. Patient will be placed on a sliding scale insulin as well as Levemir 8 units at night. Patient will be currently on a full liquid diet as she does not feel hungry. Once patient is able to advance her diet should be placed on a consistent carbohydrate diet. Patient's elevated blood sugars may be secondary to noncompliance. A1c will be ordered for the morning. 2. Chest wall pain/upper abdominal pain. It does not appear the patient's pain is in the abdomen but along the costal margin. This may be secondary to costochondritis however, we will see how the patient progresses with pain control. If the patient's pain is still causing issues tomorrow morning, patient may need a CT angiogram of her abdomen to ensure that she does not have mesenteric ischemia. Lactic acid was ordered but was still pending. We will continue to follow the patient. 3. Sinus tachycardia. I believe the patient is dehydrated based on examination as she has dry mucous membranes. The elevated blood sugar is also most likely contributing to the sinus tachycardia. Patient will receive IV fluids at 1.5 maintenance rate. I will also encourage p.o. intake. Patient will get at least 2 L of IV fluid depending on how she is tolerating it. We will continue to monitor the patient's heart rate. 4. Type 2 diabetes. We will continue the treatment as per assessment #1. 5. COPD. Patient does not appear to be in exacerbation and we will continue to monitor. 6. Coronary disease. We will continue to monitor and continue her home medications. 7. DVT prophylaxis: Lovenox 8. CODE STATUS: Full code Disposition: Patient be admitted to the medical surgical floor on remote telemetry for further monitoring. Patient will be placed on observation. Vital Signs Vital Signs Date Time Temp Pulse Resp B/P (MAP) Pulse Ox O2 Delivery O2 Flow Rate FiO2 01/29/21 16:17 92 Nasal Cannula 2.0 01/29/21 16:15 120 16 133/69 (90) 01/29/21 11:35 96.7 Laboratory Data Labs 24H Laboratory Tests 2 01/29/21 11:54: Immature Granulocyte % (Auto) 0.5, Neutrophils (%) (Auto) 95.5H, Lymphocytes (%) (Auto) 1.6L, Monocytes (%) (Auto) 2.0, Eosinophils (%) (Auto) 0.0, Basophils (%) (Auto) 0.4, Neutrophils # (Auto) 15.9H, Lymphocytes # (Auto) 0.3L, Monocytes # (Auto) 0.3, Eosinophils # (Auto) 0.0, Basophils # (Auto) 0.1, Nucleated Red Blood Cells % (auto) 0.0, Anion Gap 13, Glomerular Filtration Rate 51.7, Calcium Level 9.2, Total Bilirubin 0.8, Direct Bilirubin 0.2, Aspartate Amino Transf (AST/SGOT) 22, Alanine Aminotransferase (ALT/SGPT) 20, Alkaline Phosphatase 138H, Total Creatine Kinase 60, Creatine Kinase MB < 1.0, Creatine Kinase MB Relative Index 1.67, Troponin I < 0.02, ER-Ebx-K-Type Natriuretic Peptide 755H, Total Protein 7.6, Albumin 3.5, Albumin/Globulin Ratio 0.9L, Lipase 180, Thyroid Stimulating Hormone (TSH) 1.250 01/29/21 15:27: Bedside Glucose (Misc Panel) 418H 01/29/21 15:35: Urine Color YELLOW, Urine Appearance HAZY, Urine pH 5.0, Urine Specific [place] 1.033, Urine Protein NEGATIVE, Urine Glucose (UA) 3+H, Urine Ketones 1+H, Urine Blood 2+H, Urine Nitrite NEGATIVE, Urine Bilirubin NEGATIVE, Urine Urobilinogen 0.2, Urine Leukocyte Esterase NEGATIVE, Urine WBC (Auto) 1, Urine RBC (Auto) 5H, Urine Hyaline Casts (Auto) 0, Urine Bacteria (Auto) 1+H, Urine Squamous Epithelial Cells 0, Urine Mucus (Auto) SMALL, Urine Sperm (Auto) 01/29/21 15:54: 01/29/21 16:08: CBC/BMP Laboratory Tests 01/29/21 11:54 Microbiology Microbiology 01/29/21 Blood Culture, Received Pending Home Medications Scheduled Fluticasone/Umeclidin/Vilanter (Trelegy Ellipta 100-62.5-25) 1 Each Blst.w.dev, 1 PUFF INH DAILY Insulin Glargine,Hum.rec.anlog (Lantus Solostar) 100 Unit/1 Ml Insuln.pen, 8 UNITS SC QHS Metformin HCl (Metformin HCl) 500 Mg Tablet, 500 MG PO BID Scheduled PRN Albuterol Sulf (Albuterol Sulfate) 2.5 Mg/3 Ml Vial.neb, 2.5 MG INH QID PRN for SHORTNESS OF BREATH Albuterol Sulfate (Proair Hfa) 8.5 Gm Hfa.aer.ad, 2 PUFF INH Q4H PRN for SOB /WHEEZING Allergies Coded Allergies: aspirin (Unverified Adverse Reaction, Intermediate, NAUSEA and vomiting, 11/27/19) A-FIB/CHADSVASC A-FIB History Current/History of A-Fib/PAF?: No VERONICA ZAPATA DO Jan 29, 2021 17:17
[2021-01-29] MEDS ORDERED: HumaLOG INSULIN (NovoLOG) PER UNIT SC SCH ×2 (17:30→21:00)
[2021-01-29] MEDS ORDERED: ACETAMINOPHEN 650 MG SUPP PR PRN (19:50)
[2021-01-29] MEDS ORDERED: NS 1,000 ML IV ONE ×2 (19:55→21:30)
--- NOTE | 2021-01-29 20:05 | IPNPDOC ---
Text Note Date of Service The patient was seen on 01/29/21. NOTE Alerted by nursing staff at 1930 that patient was beginning to have altered m ental status and found to have fevers of 100.5. Tylenol was attempted but it was found that patient was not alert enough for oral medications. Vitals signs at this time showing tmax of 100.5, increasing tachycardia of 150s, o2 sats 96% on 2L nasal cannula, respirations 24, pressure of 147/59 fingerstick of 405 after receiving insulin in the ED and an additional 14 units of lispro on the floor. Saw and examined the patient at this time who is non easily arousable and does not answer questions. Physical exam notable for tachycardia with regular rhythm, tender abdomen in the LUQ. At this time, due to addition of tachypneia, fevers and ams to leukocytosis, tachycardia, lactic acidosis will be enacting sepsis protocol and beginning iv fluid boluses, broad spectrum abx coverage with zosyn, npo diet, rectal tylenol, transferring patient to pcu. f/u acetone, vbg to r/o dka. source of sepsis currently unknown, suspect possibly enteritis. VS,Fishbone, I+O VS, Fishbone, I+O Laboratory Tests 01/29/21 11:54 Vital Signs Date Time Temp Pulse Resp B/P (MAP) Pulse Ox O2 Delivery O2 Flow Rate FiO2 01/29/21 19:01 100.5 135 24 140/93 (109) 98 Nasal Cannula 2.0 MAGDALENE MCDUFFIE Jan 29, 2021 20:05
[2021-01-29 20:25] LABS: VENOUS BASE EXCESS -2.4 (-2.0-2.0); VENOUS HCO3 25.7 MEQ/L (23.0-27.0); VENOUS O2 SATURATION 63.6 % (60.0-80.0); VENOUS PARTIAL PRESSURE CO2 57.2 mmHg (38.0-50.0); VENOUS PARTIAL PRESSURE O2 35.2 mmHg (30.0-50.0); VENOUS STANDARD HCO3 21.6 MEQ/L; VENOUS TOTAL CO2 27.4 MEQ/L (24.0-28.0)
[2021-01-29] MEDS: PIPERACILLIN/TAZOBACTAM SOD 3.375 GM in D5W MINI-BAG PLUS 50 ML IV SCH (20:39)
[2021-01-29] MEDS ORDERED: LEVEMIR (INSULIN DETEMIR) 1 UNITS/0.01ML SC SCH (21:00)
[2021-01-29] MEDS ORDERED: HumaLOG INSULIN (NovoLOG) PER UNIT SC ONE (21:30)
[2021-01-29 21:48] LABS: CALCIUM LEVEL 8.4 MG/DL (8.8-10.2); CREATININE FOR GFR 1.45 MG/DL (0.55-1.30); GLOMERULAR FILTRATION RATE 38.3 (>45); POTASSIUM SERUM 4.3 MEQ/L (3.5-5.1)
[2021-01-30] VITALS (85 sets, daily range): BP systolic 44–145; BP diastolic 28–70; O2SAT 100
[2021-01-30 01:37] LABS: CALCIUM LEVEL 7.6 MG/DL (8.8-10.2); CREATININE FOR GFR 1.43 MG/DL (0.55-1.30); POTASSIUM SERUM 3.6 MEQ/L (3.5-5.1)
[2021-01-30] MEDS: PIPERACILLIN/TAZOBACTAM SOD 3.375 GM in D5W MINI-BAG PLUS 50 ML IV SCH ×4 (01:57→21:35)
[2021-01-30] MEDS ORDERED: VANCOMYCIN HCL 1,000 MG, VIAL MATE ADAPTER 1 EACH in NS 250 ML IV SCH (02:10)
[2021-01-30] MEDS ORDERED: NS 1,000 ML IV SCH (02:10)
[2021-01-30] MEDS ORDERED: NOREPINEPHRINE BITARTRATE 8 MG in D5W 492 ML IV SCH ×2 (02:45)
--- NOTE | 2021-01-30 02:52 | IPNPDOC ---
Date Seen The patient was seen on 01/30/21. Progress Note Critical Care Note : 0215am - 0253 am S: Patient was emergently transferred to ICU due to severe sepsis with persistent hypotension despite 2liter ns iv bolus w sbp 44, map 33. Pt is lethargic but arousable and following commands. "I'm tired." c/o band like abd pain in epigastric w/o radiation. no dysuria or flank pain. O: VSS: see below PE: Gen: lethargic ,but responsive and can answer yes or no questions, states her name HEENT: face is symmetric, appears older than stated age. no distress . dry mm. no jvd Lungs: AEBE diminished CTAB Heart: S1S2 sinus tachycardia Abd: soft tender epigastric RUQ no rebound, or guarding. +BS x 4 quadrants. canales Ext: no edema labs: see below. A: septic shock plan: -pt requires continued fluid resuscitation with vasopressor support. -started on levophed iv gtt single concentration via peripheral line to keep map at 65 -continue on zosyn for gram negative and anaerobic coverage. add vancomycin for gram positive coverage. -check ua, blood cx still pending -ct chest abd pelvis reviewed. -remains afebrile, check card jett, echo, esr, crp, procalcitonin. VS, I&O, 24H, [facility] Vital Signs/I&O Vital Signs Date Time Temp Pulse Resp B/P (MAP) Pulse Ox O2 Delivery O2 Flow Rate FiO2 01/30/21 02:02 98.0 106 20 44/28 (33) 01/29/21 22:06 99 Nasal Cannula 2.0 I&O- Last 24 Hours up to 6 AM 01/30/21 06:00 Output Total 0 ml Balance 0 ml Laboratory Data 24H LABS Laboratory Tests 2 01/29/21 11:54: Immature Granulocyte % (Auto) 0.5, Neutrophils (%) (Auto) 95.5H, Lymphocytes (%) (Auto) 1.6L, Monocytes (%) (Auto) 2.0, Eosinophils (%) (Auto) 0.0, Basophils (%) (Auto) 0.4, Neutrophils # (Auto) 15.9H, Lymphocytes # (Auto) 0.3L, Monocytes # (Auto) 0.3, Eosinophils # (Auto) 0.0, Basophils # (Auto) 0.1, Nucleated Red Blood Cells % (auto) 0.0, Anion Gap 13, Glomerular Filtration Rate 51.7, Calcium Level 9.2, Total Bilirubin 0.8, Direct Bilirubin 0.2, Aspartate Amino Transf (AST/SGOT) 22, Alanine Aminotransferase (ALT/SGPT) 20, Alkaline Phosphatase 138H, Total Creatine Kinase 60, Creatine Kinase MB < 1.0, Creatine Kinase MB Relative Index 1.67, Troponin I < 0.02, VA-Ddt-I-Type Natriuretic Peptide 755H, Total Protein 7.6, Albumin 3.5, Albumin/Globulin Ratio 0.9L, Lipase 180, Thyroid Stimulating Hormone (TSH) 1.250 01/29/21 15:27: Bedside Glucose (Misc Panel) 418H 01/29/21 15:35: Urine Color YELLOW, Urine Appearance HAZY, Urine pH 5.0, Urine Specific [place] 1.033, Urine Protein NEGATIVE, Urine Glucose (UA) 3+H, Urine Ketones 1+H, Urine Blood 2+H, Urine Nitrite NEGATIVE, Urine Bilirubin NEGATIVE, Urine Urobilinogen 0.2, Urine Leukocyte Esterase NEGATIVE, Urine WBC (Auto) 1, Urine RBC (Auto) 5H, Urine Hyaline Casts (Auto) 0, Urine Bacteria (Auto) 1+H, Urine Squamous Epithelial Cells 0, Urine Mucus (Auto) SMALL, Urine Sperm (Auto) 01/29/21 15:54: Coronavirus (COVID-19)(PCR) NEGATIVE, Influenza Type A (RT-PCR) NEGATIVE, Influenza Type B (RT-PCR) NEGATIVE, Respiratory Syncytial Virus (PCR) NEGATIVE 01/29/21 16:08: Lactic Acid Level 3.2*H 01/29/21 19:49: Bedside Glucose (Misc Panel) 405H 01/29/21 20:09: Blood Gas Bicarbonate Standard 21.6, Venous Blood pH 7.270L, Venous Blood Partial Pressure CO2 57.2H, Venous Blood Partial Pressure O2 35.2, Venous Blood Total Carbon Dioxide 27.4, Venous Blood HCO3 25.7, Venous Blood Oxygen Saturation 63.6, Venous Blood Base Excess -2.4L, B-Hydroxybutyrate 24.13H 01/29/21 20:46: Bedside Glucose (Misc Panel) 338H 01/29/21 20:58: Anion Gap 14, Glomerular Filtration Rate 38.3L, Lactic Acid Followup at 4 Hours 5.4*H, Calcium Level 8.4L 01/30/21 00:54: Anion Gap 9, Glomerular Filtration Rate 39.0L, Calcium Level 7.6L, Lactic Acid Level 5.4*H CBC/BMP Laboratory Tests 01/29/21 11:54 01/29/21 20:58 01/30/21 00:54 Microbiology Microbiology 01/29/21 Blood Culture, Received Pending 01/29/21 Blood Culture, Received Pending BURKE MAGANA MD Jan 30, 2021 02:52
[2021-01-30] MEDS: NOREPINEPHRINE BITARTRATE 8 MG in D5W 492 ML IV SCH (02:53)
[2021-01-30] MEDS ORDERED: VANCOMYCIN HCL 750 MG, VIAL MATE ADAPTER 1 EACH in NS 250 ML IV ONE (04:00)
[2021-01-30] MEDS ORDERED: INSULIN REGULAR IN 0.9 % NACL 100 UNIT in IV 1 EA IV SCH ×2 (04:45)
[2021-01-30] MEDS ORDERED: NS 1,000 ML IV ONE (04:45)
[2021-01-30] MEDS ORDERED: INSULIN IV RATE CHANGE DOCUMENTATION ML/HR XX SCH (04:45)
[2021-01-30] MEDS: NS 1,000 ML IV SCH ×3 (04:51→21:34)
[2021-01-30 04:55] LABS: BASO # 0.2 10^3/uL (0.0-0.2); BASO % 0.5 % (0.0-1.0); HEMATOCRIT 39.6 % (36.0-47.0); HEMOGLOBIN 12.9 g/dl (12.0-15.5); LYMPH # 1.1 10^3/uL (1.5-5.0); MEAN CORPUSCULAR HEMOGLOBIN 29.8 pg (27.0-33.0); MEAN CORPUSCULAR HGB CONC 32.6 g/dl (32.0-36.5); MEAN CORPUSCULAR VOLUME 91.5 fl (80.0-96.0); MONO # 1.7 10^3/uL (0.0-0.8); MONO % 4.5 % (2.0-8.0); NEUTROPHILS % 86.7 % (36.0-66.0); PLATELET COUNT, AUTOMATED 238 10^3/uL (150-450); RED BLOOD COUNT 4.33 10^6/uL (4.00-5.40)
[2021-01-30 05:03] LABS: WHITE BLOOD COUNT 36.9 10^3/uL (4.0-10.0)
[2021-01-30 05:19] LABS: ERYTHROCYTE SEDIMENTATION RATE 41 mm/hr (0-30)
[2021-01-30 05:33] LABS: ALBUMIN 2.4 GM/DL (3.2-5.2); ALT/SGPT 78 U/L (12-78); BILIRUBIN,DIRECT 0.3 MG/DL (0.0-0.2); BILIRUBIN,TOTAL 0.4 MG/DL (0.2-1.0); BLOOD UREA NITROGEN 20 MG/DL (7-18); CALCIUM LEVEL 7.2 MG/DL (8.8-10.2); CARBON DIOXIDE LEVEL 23 MEQ/L (21-32); CHLORIDE LEVEL 111 MEQ/L (98-107); CK-MB VALUE MASS < 1.0 NG/ML (<3.6); CPK CREATINE PHOSPHOKINASE 33 U/L (26-192); GLOMERULAR FILTRATION RATE 43.5 (>45); GLUCOSE, FASTING 86 MG/DL (70-100); LIPASE 34 U/L (73-393); MAGNESIUM LEVEL 1.7 MG/DL (1.8-2.4); MB/CK RELATIVE INDEX 3.03 (< OR =4); NT-PRO BNP 11309 PG/ML (<125); POTASSIUM SERUM 3.4 MEQ/L (3.5-5.1); SODIUM LEVEL 144 MEQ/L (136-145); TOTAL PROTEIN 5.5 GM/DL (6.4-8.2); TROPONIN I 0.07 NG/ML (< 0.10)
--- NOTE | 2021-01-30 06:51 | ROOPDOC ---
[facility] Report Of Operation Report of Operation DATE OF PROCEDURE: 01/30/21 PREPROCEDURE DIAGNOSES: urosepsis with hypotension. POSTPROCEDURE DIAGNOSES: urosepsis with hypotension. PROCEDURE PERFORMED: US guided insertion of left internal jugular vein triple lumen central catheter. SURGEON: Ron Marie MD ANESTHESIA: local anesthesia. ESTIMATED BLOOD LOSS: Approximately 7 mL. COMPLICATIONS: none. REMARKS: I was asked to place a central venous catheter on this lady was transferred to the ICU with sepsis and hypotension nonresponsive to IV fluids. She was started on Levophed and needs a central line for the administration of vasopressor.. DESCRIPTION OF PROCEDURE: Consent has been obtained from her daughter. She remained in her room. Explained to her how the procedure is done. She was positioned on her bed, her left arm tucked. Her left chest and neck is prepped and draped with chlorhexidine. We used a line bundle. Widesterile drapes placed on top of the sterile field. We paused for a surgical timeout using both pre-incision safety checklist to verify correct patient, procedure site and additional clinical information prior to beginning the procedure. I initially tried and infraclavicular approach. Tried this 3 times with could not get access to the subclavian vein. I then switched to the left internal jugular vein. I used an ultrasound probe and located the course of the jugular vein. This feels full. She was placed in slight Trendelenburg position. Under ultrasound guidance the left internal jugular vein is accessed. A guidewire placed. No arrhythmias noted during the placement of the guidewire. Using a modified Seldinger technique this was exchanged for a triple-lumen catheter placed at 19 cm at the skin level. All 3 ports were tested, aspirated and flushed and noted to be working well. This was secured to the skin and a chlorhexidine-containing nonocclusive dressing from the line bundle was used to cover the incision. Patient tolerated the procedure well. A postoperative chest x-ray was taken showing good placement and no evidence for pneumothorax. RON MARIE MD Jan 30, 2021 06:51
--- NOTE | 2021-01-30 07:54 | REP ---
INDICATION: central line placement triple lumen cath. COMPARISON: Comparison chest x-ray January 29, 2021. TECHNIQUE: Portable upright AP chest radiograph. Two views provided.. FINDINGS: The lungs are symmetrically somewhat hyperinflated and free of infiltrate. Emphysematous changes and interstitial fibrosis is visible. There are fiducial markers in the infrahilar level on the left and median sternotomy wires are seen. EKG monitoring electrodes and oxygen delivery tubing are noted. There is a left internal jugular vein Gdeivy-H-Ajzc catheter with its tip in the expected location of the superior vena cava. There is no evidence of pneumothorax.. IMPRESSION: Yzhcdt-P-Ftpp catheter in place. No complications seen.. <Electronically signed by Tomi Torres > 01/30/21 [id number]
[2021-01-30] MEDS ORDERED: ENOXAPARIN 40MG/0.4ML SYRINGE (J1650 PER 10MG) SC SCH (09:00)
--- NOTE | 2021-01-30 11:50 | IPNPDOC ---
Text Note Date of Service The patient was seen on 01/30/21. NOTE Subjective: Patient is a 65-year-old female present in the emergency department with a chief complaint of left-sided rib pain/upper abdominal pain. Patient overnight became septic with altered mental status, fevers, tachycardia, and leukocytosis. Patient had hypotension requiring vasopressors after 30 cc/kg bolus was initiated. Patient's blood cultures were positive for gram-negative rods. Patient was started on vancomycin and Zosyn. Patient is feeling better today and says that the abdominal pain is gone. Patient's blood sugars have also improved. Review of systems: General: Patient denies fevers HEENT: Patient denies headaches Cardiovascular: Patient denies chest pain Respiratory: Patient denies shortness of breath, cough GI: Patient denies abdominal pain, nausea, vomiting, diarrhea : Patient denies increased frequency or pain with urination Extremities: Patient denies swelling or pain in extremities Neurological: Patient denies numbness or tingling in legs Physical exam: Vitals: See below General: Alert and oriented female patient who was laying in bed when I walked in the room. Patient not appear to be in any acute distress. HEENT: Normocephalic, atraumatic, moist mucous membranes. Neck: No lymphadenopathy or thyromegaly Cardiac: Regular rate and rhythm, no murmurs, normal S1, normal S2 Pulm: Clear to auscultation bilaterally. No wheezes, rhonchi, rales Abd: Nondistended, nontender to palpation, normal bowel sounds Ext: No edema bilateral lower extremities Labs: See below Imaging: Chest x-ray performed on 2021-01-30 was reported to show Znufdf-h-Iuzn catheter in place. No complications seen. Assessment/plan: Patient is a 65-year-old female who presented to the emergency department with hyperglycemia and left upper quadrant/rib pain who was found to be septic overnight in severe septic shock requiring vasopressors after fluid boluses were unsuccessful in maintaining the patient's blood pressure 1. Severe sepsis. 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 Patient's lactic acidosis had worsened and the patient became hypotensive. Patient received multiple fluid boluses and the need for vasopressors was evident. Patient's blood pressure did not respond to the initial boluses. Central line was placed and patient is on Levophed currently. Patient's blood cultures showed gram-negative andrew bacteremia and the patient moved to the intensive care unit for further management of her severe sepsis. Upon admission patient was only tachycardic but was not tachypneic or febrile. Patient did have a lactic acidosis which was thought to be secondary to dehydration as the patient did appear very dry on examination yesterday in the emergency department. Patient did appear to have a fever around 1800 of 100.5 taken orally. 2. Gram-negative andrew bacteremia. Patient may have a urinary tract infection which led to the gram-negative andrew bacteremia. Patient will remain on van comycin and Zosyn until the source of the infection is able to be identified however, vancomycin may be able to be discontinued either today or tomorrow. 3. Hyperglycemia. Patient's blood sugar has decreased. This may be secondary to her infection that led to her becoming septic. 4. Chest wall pain/upper abdominal pain. It appears that the patient's pain is improved to the point where she does not complain of any pain at this time. We will continue to monitor. 5. Type 2 diabetes. Continue to monitor with sliding scale coverage. 6. COPD. Does not appear to be in exacerbation. 7. Coronary artery disease. We will continue her home medications. DVT Prophylaxis: Lovenox Disposition: Pending clinical improvement. Patient status has been changed from observation to admission due to the severe sepsis. VS,Fishbone, I+O VS, Fishbone, I+O Laboratory Tests 01/29/21 11:54 01/29/21 20:58 01/30/21 00:54 01/30/21 04:44 Vital Signs Date Time Temp Pulse Resp B/P (MAP) Pulse Ox O2 Delivery O2 Flow Rate FiO2 01/30/21 09:30 113 90/54 (66) 93 Room Air 01/30/21 08:00 98.7 20 1.0 I&O- Last 24 Hours up to 6 AM 01/30/21 06:00 Intake Total 275 ml Output Total 325 ml Balance -50 ml VERONICA ZAPATA DO Jan 30, 2021 11:50
[2021-01-30] MEDS ORDERED: VANCOMYCIN HCL 750 MG, VIAL MATE ADAPTER 1 EACH in NS 250 ML IV SCH (18:00)
--- NOTE | 2021-01-30 19:02 | ECGEPIP ---
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
--- NOTE | 2021-01-30 21:18 | ECGEPIP ---
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
[2021-01-31] VITALS (42 sets, daily range): BP systolic 86–120; BP diastolic 51–68
[2021-01-31] MEDS: PIPERACILLIN/TAZOBACTAM SOD 3.375 GM in D5W MINI-BAG PLUS 50 ML IV SCH ×4 (03:01→21:59)
[2021-01-31] MEDS ORDERED: ACETAMINOPHEN 500 MG TAB PO ONE (03:30)
[2021-01-31] MEDS: NOREPINEPHRINE BITARTRATE 8 MG in D5W 492 ML IV SCH (03:34)
[2021-01-31 05:33] LABS: HEMATOCRIT 33.7 % (36.0-47.0); HEMOGLOBIN 11.2 g/dl (12.0-15.5); MEAN CORPUSCULAR HEMOGLOBIN 29.9 pg (27.0-33.0); MEAN CORPUSCULAR HGB CONC 33.2 g/dl (32.0-36.5); MEAN CORPUSCULAR VOLUME 89.9 fl (80.0-96.0); PLATELET COUNT, AUTOMATED 173 10^3/uL (150-450); RED BLOOD COUNT 3.75 10^6/uL (4.00-5.40); WHITE BLOOD COUNT 24.4 10^3/uL (4.0-10.0)
[2021-01-31 05:48] LABS: BLOOD UREA NITROGEN 18 MG/DL (7-18); CALCIUM LEVEL 6.7 MG/DL (8.8-10.2); CARBON DIOXIDE LEVEL 22 MEQ/L (21-32); CHLORIDE LEVEL 109 MEQ/L (98-107); CREATININE FOR GFR 0.69 MG/DL (0.55-1.30); GLOMERULAR FILTRATION RATE > 60.0 (>45); GLUCOSE, FASTING 147 MG/DL (70-100); MAGNESIUM LEVEL 1.7 MG/DL (1.8-2.4); POTASSIUM SERUM 3.2 MEQ/L (3.5-5.1); SODIUM LEVEL 138 MEQ/L (136-145)
[2021-01-31] MEDS ORDERED: POTASSIUM CHLORIDE 10 MEQ SR TABLET PO ONE (06:45)
[2021-01-31] MEDS ORDERED: CALCIUM GLUCONATE 1,000 MG in D5W MINI-BAG PLUS 100 ML IV ONE (06:45)
[2021-01-31] MEDS ORDERED: MAG SULF 1GM/100ML (MAG RUN) 1 GM in IV 1 EA IV ONE (08:00)
[2021-01-31] MEDS: NS 1,000 ML IV SCH (09:27)
[2021-01-31] MEDS: ENOXAPARIN 30MG/0.3ML SYRINGE (J1650 PER 10MG) SC SCH (09:27)
--- NOTE | 2021-01-31 13:00 | ECHO ---
ECHOCARDIOGRAM DATE OF PROCEDURE: 01/30/2021 Age: 65 Gender: Female Height: 63 inches Weight: 93 pounds Body surface area: 1.4 m2 PATIENT LOCATION: Inpatient, intensive care unit (ICU), Room 3209. REFERRING PHYSICIAN: Melonie Guardado M.D. INDICATION: Sepsis. Coronary artery disease/post coronary artery bypass graft (CABG). MEASUREMENTS: 2D Measurements: RV - 3.9 cm LV - 3.5 cm Septum 1.1 cm Posterior 1.1 cm Aortic root 3.0 cm LA - 3.0 cm LVEF - 45-50% Doppler Measurements: AV - 1.07 m/sec LVOT - 0.72 m/sec MV - E 62, A 73, EA ratio 0.8 Early mitral deceleration time 211 msec E prime medial 4.2 A prime medial 8.4 E prime lateral 5.7 Average E/E ratio 12.7/PCWP 17.6 mmHg PV - 0.7 m/sec Pulmonary artery acceleration time 114 msec RVSP 31 mmHg IVC - 1.6 cm COMMENTS: Sinus tachycardia at 106 beats per minute (bpm) with right bundle branch block. M-mode and 2-dimensional echocardiography was performed with pulse, continuous wave and tissue Doppler study. Normal left ventricular size and wall thickness with hypo- to akinesis of the inferolateral wall. Other left ventricular wall segments appeared to move normally. At least mild impairment of global resting systolic function. Normal left atrial size, but evidence of grade 1 left ventricular (LV) diastolic dysfunction with borderline elevated estimated mean left atrial pressure. Slightly dilated right heart chambers (in light of the patient's body habitus) with right ventricular free wall hypokinesis and Doppler evidence of at least borderline pulmonary hypertension. Normal inferior vena cava (IVC) size with reduced respiratory collapse in keeping with central venous pressure 10-15 mmHg. Normal aortic dimensions. Mild aortic valvular sclerosis without stenosis, but very mild insufficiency. Mild degenerative changes of the mitral valvular apparatus with adequate leaflet excursion and no posterior systolic buckling and only trace insufficiency. Normal appearing tricuspid valve with moderate insufficiency. No apparent intracardiac mass or pericardial effusion.
[2021-01-31] MEDS: HumaLOG INSULIN (NovoLOG) PER UNIT SC SCH ×3 (13:13→22:02)
--- NOTE | 2021-01-31 15:57 | IPNPDOC ---
Text Note Date of Service The patient was seen on 01/31/21. NOTE Subjective: Patient is a 65-year-old female presented to the emergency depart ment chief complaint of left-sided rib/upper abdominal pain. Patient became septic 2 nights ago with altered mental status, fevers, tachycardia, and leukocytosis. Patient had hypotension requiring vasopressors. Patient was able to be weaned off vasopressors this morning and has done well throughout the day off vasopressors. Patient was found to have a gram-negative rods on blood cultures. Patient was started on vancomycin and Zosyn. Patient is feeling much better today. Review of systems: General: Patient denies fevers HEENT: Patient denies headaches Cardiovascular: Patient denies chest pain Respiratory: Patient denies shortness of breath, cough GI: Patient denies abdominal pain, nausea, vomiting, diarrhea : Patient denies increased frequency or pain with urination Extremities: Patient denies swelling or pain in extremities Neurological: Patient denies numbness or tingling in legs Physical exam: Vitals: See below General: Alert and oriented female patient who was sitting in bed when I walked in. Patient did not appear to be in any acute distress. HEENT: Normocephalic, atraumatic, moist mucous membranes. Neck: No lymphadenopathy or thyromegaly Cardiac: Regular rate and rhythm, no murmurs, normal S1, normal S2 Pulm: Clear to auscultation bilaterally. No wheezes, rhonchi, rales Abd: Nondistended, nontender to palpation, normal bowel sounds Ext: No edema bilateral lower extremities Labs: See below Imaging: No new imaging has been performed Assessment/plan: 65-year-old female presented the emergency department with hyperglycemia and left upper quadrant/rib pain is found to be septic overnight and severe sepsis requiring vasopressors after fluid boluses were unsuccessful in maintaining the patient's blood pressure 1. Severe sepsis. 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 Patient's lactic acidosis had worsened and the patient became hypotensive. Patient received greater than 30 cc/kg bolus and the need for vasopressors were evident. Central line was placed patient was placed on Levophed. Patient was able get weaned off Levophed today and will be transferred out of the ICU today. 2. Gram-negative andrew bacteremia. This may be secondary to a urinary tract infection. Patient will continue with Zosyn until we have sensitivities. 3. Hyperglycemia. We will continue to monitor the patient's blood sugars before meals at bedtime 4. Chest wall pain/upper abdominal pain. This is resolved and will continue to monitor. 5. Type 2 diabetes. Continue to monitor with sliding scale coverage. 6. COPD. Does not appear to be in exacerbation. 7. Coronary artery disease. Continue home medications. DVT Prophylaxis: Lovenox Disposition: Pending clinical improvement. Patient will be downgraded from ICU status to PCU status. VS,Fishbone, I+O VS, Fishbone, I+O Laboratory Tests 01/31/21 05:03 Vital Signs Date Time Temp Pulse Resp B/P (MAP) Pulse Ox O2 Delivery O2 Flow Rate FiO2 01/31/21 08:30 101 112/60 (77) 98 Nasal Cannula 2.0 01/31/21 08:00 98.7 16 I&O- Last 24 Hours up to 6 AM 01/31/21 06:00 Intake Total 1923.5 ml Output Total 1485 ml Balance 438.5 ml VERONICA ZAPATA DO Jan 31, 2021 15:57
[2021-02-01] VITALS: BP 119/65
[2021-02-01] MEDS ORDERED: CEPACOL LOZENGE PO PRN (00:40)
[2021-02-01] MEDS: PIPERACILLIN/TAZOBACTAM SOD 3.375 GM in D5W MINI-BAG PLUS 50 ML IV SCH ×2 (02:15→08:24)
[2021-02-01 04:00] VITALS: BP 112/60
[2021-02-01 05:20] LABS: HEMATOCRIT 36.4 % (36.0-47.0); MEAN CORPUSCULAR HEMOGLOBIN 29.9 pg (27.0-33.0); MEAN CORPUSCULAR VOLUME 90.5 fl (80.0-96.0); PLATELET COUNT, AUTOMATED 179 10^3/uL (150-450); RED BLOOD COUNT 4.02 10^6/uL (4.00-5.40); WHITE BLOOD COUNT 22.5 10^3/uL (4.0-10.0)
[2021-02-01 05:45] LABS: BLOOD UREA NITROGEN 13 MG/DL (7-18); CALCIUM LEVEL 7.3 MG/DL (8.8-10.2); CARBON DIOXIDE LEVEL 21 MEQ/L (21-32); CHLORIDE LEVEL 106 MEQ/L (98-107); CREATININE FOR GFR 0.74 MG/DL (0.55-1.30); GLOMERULAR FILTRATION RATE > 60.0 (>45); GLUCOSE, FASTING 257 MG/DL (70-100); MAGNESIUM LEVEL 1.9 MG/DL (1.8-2.4); POTASSIUM SERUM 3.9 MEQ/L (3.5-5.1); SODIUM LEVEL 136 MEQ/L (136-145)
[2021-02-01] MEDS: ENOXAPARIN 30MG/0.3ML SYRINGE (J1650 PER 10MG) SC SCH (08:24)
[2021-02-01] MEDS: HumaLOG INSULIN (NovoLOG) PER UNIT SC SCH ×4 (08:25→20:09)
[2021-02-01 08:29] VITALS: BP 121/65
--- NOTE | 2021-02-01 11:02 | IPNPDOC ---
Text Note Date of Service The patient was seen on 02/01/21. NOTE Subjective Pt was seen at bedside today and was in no pain. She admits her abdominal pain resolved yesterday afternoon. Pt vomited once last night, had a normal bowel movement this morning, and currently has an appetite and was eating breakfast and getting fluids down well. Denies LUNA, nausea, chest pain, SOB, constipation, diarrhea, dysuria, hematuria. Objective Gen: Pleasant and comfortable, in no acute distress. No fever. Psych: Alert and oriented x3. HEENT: no cervical lymphadenopathy, mucus membranes mildly dry. RESP: CTA b/l, no rhonchi, crackles, or wheeze. CVS: RRR, no murmur. ABD: non-tender to palpation, non-distended, soft, normoactive bowel sounds. MSK: plantarflexion 5/5 b/l. EXT: no edema. Imaging CHEST X-RAY (01/29) No active disease or acute findings. CT ABD & PELVIS W/O CONTRAST (01/29) Reported as- 1. Layered debris/small stones or gravel in the gallbladder. I see no calcification in the common duct within the lidia hepatis or pancreatic head. No inflammatory changes to suggest pancreatitis. 2. Liver, spleen, adrenal glands without acute finding. There is a evidence of adrenal hyperplasia with thickening of adrenal limbs but low-density. 3. Upper left kidney with cysts but no solid mass. There is an extrarenal pelvis and mild left hydronephrosis but no hydroureter, renal or ureteral stones. Both kidneys show vascular calcifications at the hilum. 4. Atherosclerotic calcifications of the aorta without aneurysm. No ascites, perforation, abscess or free air. 5. Bones grossly intact. CT ANGIO CHEST (01/29) Reported as- No CT evidence of pulmonary embolism. No evidence of thoracic aortic aneurysm or dissection. Stable nodular opacities left lower lobe. CHEST X-RAY (01/30) No active disease or acute findings. Assessment Pt is a 65yo F w PMHx of diabetes mellitus type 2 (non-compliant w medication), Lung Ca and radiation tx to L lung field, COPD, and CAD. Pt presented on 01/29 with L-sided rib pain/L upper abdominal pain, which onset early that morning waking her from sleep, and she vomited 5x prior to arrival and was nauseous. On evaluation in ED she had a blood glucose of 550. She was admitted for evaluation and management of her pain and hyperglycemic state. Plan 1. Hyperglycemia/uncontrolled DMT2 Pt is on sliding insulin scale. POC glucose at 199, we will continue to monitor this. 2. L-sided rib/L upper abdominal pain Pt has decreased pain and has not needed Tylenol in 3 days, will give Tylenol for mild pain if needed. 3. Sepsis, improved Leukocytosis downtrending over 48hrs, at 22.5 today. We have discontinued Zosyn. We started patient on liquid Augmentin PO 138641 mg BID. 4. Gram negative bacteremia Blood culture (01/29) and urine culture (01/30) positive for Klebsiella pneumoniae. We started patient on liquid Augmentin PO 113195 mg BID. 5. COPD No evidence of acute exacerbation. 6. Coronary Artery Disease Continue w home medications. 7. DVT Prophylaxis: Pt is on Lovenox 30mg SC daily. Disposition: Pt is being monitored for clinical improvement. Patient will be downgraded to the medical surgical floor VS,Judy, I+O VSJudy I+O Laboratory Tests 02/01/21 05:12 Vital Signs Date Time Temp Pulse Resp B/P (MAP) Pulse Ox O2 Delivery O2 Flow Rate FiO2 02/01/21 08:29 98.1 100 20 121/65 (83) 93 Room Air 01/31/21 09:45 2.0 I&O- Last 24 Hours up to 6 AM 02/01/21 05:59 Intake Total 2710 ml Output Total 1435 ml Balance 1275 ml GME ATTESTATION ATTENDING NOTE Benoit Harding DO, have independently examined this patient and performed my own physical exam, as well as reviewed the documentation and edited where necessary. I have discussed in detail with the resident / student the findings and plan of treatment as documented by the resident / student and edited their note. I agree with their findings and treatment plan and have edited their documentation. I will continue to follow the patient during this hospital stay. ARIEL CASAS OMS-3 Feb 01, 2021 11:02 BENOIT ZAPATA DO Feb 01, 2021 18:26
[2021-02-01 12:08] VITALS: BP 120/60
[2021-02-01] MEDS: AUGMENTIN BID 400MG/5ML SUSP 50ML BTL PO SCH ×2 (12:47→20:46)
[2021-02-01 14:39] VITALS: BP 118/67
[2021-02-01 20:43] VITALS: BP 115/66
[2021-02-02 04:12] VITALS: BP 118/69
[2021-02-02 06:12] LABS: HEMOGLOBIN 12.7 g/dl (12.0-15.5); MEAN CORPUSCULAR HEMOGLOBIN 29.5 pg (27.0-33.0); MEAN CORPUSCULAR HGB CONC 32.6 g/dl (32.0-36.5); MEAN CORPUSCULAR VOLUME 90.7 fl (80.0-96.0); PLATELET COUNT, AUTOMATED 184 10^3/uL (150-450); WHITE BLOOD COUNT 13.6 10^3/uL (4.0-10.0)
[2021-02-02 06:30] LABS: BLOOD UREA NITROGEN 10 MG/DL (7-18); CALCIUM LEVEL 7.6 MG/DL (8.8-10.2); CARBON DIOXIDE LEVEL 24 MEQ/L (21-32); CHLORIDE LEVEL 105 MEQ/L (98-107); CREATININE FOR GFR 0.54 MG/DL (0.55-1.30); GLOMERULAR FILTRATION RATE > 60.0 (>45); GLUCOSE, FASTING 242 MG/DL (70-100); MAGNESIUM LEVEL 1.7 MG/DL (1.8-2.4); POTASSIUM SERUM 3.6 MEQ/L (3.5-5.1); SODIUM LEVEL 138 MEQ/L (136-145)
[2021-02-02] MEDS: ENOXAPARIN 30MG/0.3ML SYRINGE (J1650 PER 10MG) SC SCH (07:46)
[2021-02-02] MEDS: AUGMENTIN BID 400MG/5ML SUSP 50ML BTL PO SCH (07:47)
[2021-02-02] MEDS: HumaLOG INSULIN (NovoLOG) PER UNIT SC SCH (07:47)
[2021-02-02] MEDS ORDERED: CEFD250S26 PO (09:56)
--- NOTE | 2021-02-02 09:59 | DS.PDOC ---
Discharge Summary General Date of Admission Jan 29, 2021 at 06:51 Date of Discharge Feb 02, 2021 Discharge Summary PROCEDURES PERFORMED DURING STAY: None. ADMITTING DIAGNOSES: 1. Hyperglycemia/uncontrolled DMT2 2. L-sided rib/L upper abdominal pain 3. Sepsis, improved 4. Gram negative bacteremia 5. COPD-compensated 6. Coronary Artery Disease DISCHARGE DIAGNOSES: 1. Resolving Hyperglycemia secondary to DMT2 2. Gram negative bacteremia-being covered 3. COPD-compensated 4. Coronary Artery Disease COMPLICATIONS/CHIEF COMPLAINT: Chest Wall Pain, Hyperglycemia Due To Dm. HISTORY OF PRESENT ILLNESS: Pt is a 65yo F w PMHx of diabetes mellitus type 2 and non-compliance with diabetes medication, Lung Ca w radiation tx to L lung field, COPD, and CAD. Pt presented on 01/29 with L-sided rib pain/L upper abdominal pain, which onset early that morning waking her from sleep, and she vomited 5x prior to arrival and was nauseous. Initial evaluation in ED revealed blood glucose of 550. She was admitted to the hospital for evaluation and management of her pain and hyperglycemic state. HOSPITAL COURSE: Pt stayed 5 days in hospital for pain management and control of symptoms related to hyperglycemia. Pt's diabetes was managed on sliding insulin scale, and blood glucose was monitored throughout stay. On night 1 of stay patient become hypotensive, had altered mental status, and lactic acidosis. Blood and urine cultures were positive for Klebsiella pneumoniae, and sensitivities were sent. Pt was started on broad spectrum antibiotics for sepsis with zosyn. She was given IV fluid bolus and then vasopressors which led to return to stable condition, and pressors were stopped. POC glucose has been downtrending over last few days, at 150 last check. Pt's L-sided pain decreased throughout stay and she has not needed Tylenol for last 4 days. Leukocytosis has been resolving over last 72hrs, at 13.6 today. We switched to liquid oral Augmentin yesterday, and today we switched to liquid oral Cefdinir for better coverage of Klebsiella based on M.I.C data, and today is day 4 of antibiotic course. Patient was downgraded from PCU to med/surg yesterday. She will complete her 14 day course of antibiotics at home. Pt was seen at bedside this morning and was feeling well. She admits her abdominal pain has not been present for 48 hrs, and she currently has no symptoms. She has been moving around in her room well independently, and was accepting of discharge plan. DISCHARGE MEDICATIONS: Please see below. ALLERGIES: Please see below. PHYSICAL EXAMINATION ON DISCHARGE: Gen: Pt is comfortable laying down and in no distress. Psych: A+Ox3. HEENT: Mildly dry oral cavity, no cervical lymphadenopathy. RESP: CTA b/l, no rhonchi, crackles, or wheeze. CVS: RRR, no murmur, rub, or gallop. Distal pulses 2/4 b/l. ABD: NT, ND, normoactive sounds. EXT: Legs non-tender, no distal edema. MSK: plantarflexion strength 5/5 b/l. LABORATORY DATA: Please see below. IMAGING: CHEST X-RAY (01/29) No active disease or acute findings. CT ABD & PELVIS W/O CONTRAST (01/29) Reported as- 1. Layered debris/small stones or gravel in the gallbladder. I see no calcification in the common duct within the lidia hepatis or pancreatic head. No inflammatory changes to suggest pancreatitis. 2. Liver, spleen, adrenal glands without acute finding. There is a evidence of adrenal hyperplasia with thickening of adrenal limbs but low-density. 3. Upper left kidney with cysts but no solid mass. There is an extrarenal pelvis and mild left hydronephrosis but no hydroureter, renal or ureteral stones. Both kidneys show vascular calcifications at the hilum. 4. Atherosclerotic calcifications of the aorta without aneurysm. No ascites, perforation, abscess or free air. 5. Bones grossly intact. CT ANGIO CHEST (01/29) Reported as- No CT evidence of pulmonary embolism. No evidence of thoracic aortic aneurysm or dissection. Stable nodular opacities left lower lobe. CHEST X-RAY (01/30) No active disease or acute findings. PROGNOSIS: Good. ACTIVITY: As tolerated DIET: Normal. DISCHARGE PLAN: Pt will be sent home on liquid (d/t difficulty swallowing pills) Cefdinir for coverage of her bacteremia secondary to UTI. DISPOSITION: Return home. DISCHARGE INSTRUCTIONS: 1. Pt will take liquid Cefdinir 300mg PO BID for 11 more days to complete 14 day course of antibiotics. 2. Pt may take Tylenol at home for any mild pain she experiences. ITEMS TO FOLLOWUP ON ON OUTPATIENT: 1. Follow up with PCP in 7 days. DISCHARGE CONDITION: Stable TIME SPENT ON DISCHARGE: 45 minutes. Vital Signs/I&Os Vital Signs Date Time Temp Pulse Resp B/P (MAP) Pulse Ox O2 Delivery O2 Flow Rate FiO2 02/02/21 04:12 98.8 104 20 118/69 (85) 96 Room Air 01/31/21 09:45 2.0 I&O- Last 24 Hours up to 6 AM 02/02/21 05:59 Intake Total 1210 ml Output Total 1300 ml Balance -90 ml Laboratory Data Labs 24H Laboratory Tests 2 02/01/21 12:37: Bedside Glucose (Misc Panel) 199H 02/01/21 16:35: Bedside Glucose (Misc Panel) 168H 02/01/21 19:43: Bedside Glucose (Misc Panel) 150H 02/02/21 05:38: Nucleated Red Blood Cells % (auto) 0.0, Anion Gap 9, Glomerular Filtration Rate > 60.0, Calcium Level 7.6L, Magnesium Level 1.7L CBC/BMP Laboratory Tests 02/02/21 05:38 FSBS Laboratory Tests Test 02/01/21 12:37 02/01/21 16:35 02/01/21 19:43 Range/Units Bedside Glucose (Misc Panel) 199 168 150 80-115 MG/DL Microbiology Microbiology 01/30/21 Urine Culture - Final, Complete Klebsiella Pneumoniae 01/29/21 Blood Culture - Final, Complete Klebsiella Pneumoniae 01/29/21 Blood Culture - Final, Complete Klebsiella Pneumoniae Discharge Medications Scheduled Cefdinir (Cefdinir) 250 Mg/5 Ml Susp.recon, 300 MG PO BID Please take 6mL twice a day Fluticasone/Umeclidin/Vilanter (Trelegy Ellipta 100-62.5-25) 1 Each Blst.w.dev, 1 PUFF INH DAILY, (Reported) Insulin Glargine,Hum.rec.anlog (Lantus Solostar) 100 Unit/1 Ml Insuln.pen, 8 UNITS SC QHS, (Reported) Metformin HCl (Metformin HCl) 500 Mg Tablet, 500 MG PO BID, (Reported) Scheduled PRN Albuterol Sulf (Albuterol Sulfate) 2.5 Mg/3 Ml Vial.neb, 2.5 MG INH QID PRN for SHORTNESS OF BREATH, (Reported) Albuterol Sulfate (Proair Hfa) 8.5 Gm Hfa.aer.ad, 2 PUFF INH Q4H PRN for SOB/WHEEZING, (Reported) Allergies Coded Allergies: aspirin (Unverified Adverse Reaction, Intermediate, NAUSEA and vomiting, 11/27/19) GME ATTESTATION GME ATTESTATION My faculty preceptor for this patient encounter was physically present during the encounter and was fully available. All aspects of the patient interview, examination, medical decision making process, and medical care plan development were reviewed and approved by the faculty preceptor. The faculty preceptor is aware and concurs with the plan as stated in the body of this note and will attest to such by his/her cosignature. ATTENDING NOTE I, Bladimir Andrea, have independently examined this patient and performed my own physical exam, as well as reviewed the documentation and edited where necessary. I have discussed in detail with the resident / student the findings and plan of treatment as documented by the resident / student and edited their note. I agree with their findings and treatment plan and have edited their documentation. I will continue to follow the patient during this hospital stay. Time spent on discharge 35 minutes ARIEL CASAS OMS-3 Feb 02, 2021 09:59 SIMIN CHARLTON D.O. Feb 02, 2021 11:35 BLADIMIR ANDREA MD Feb 02, 2021 16:51
[2021-02-02] MEDS ORDERED: CEFDINIR 250 MG/5 ML 60ML SUSP BTL PO SCH (12:00)
== END 2021-02-02 11:50 | disposition home or self-care (01) | DRG 871 ==
LOC: EDBD 11:23 → M ED 11:23 → M ED INP 11:24 → M MSPAV 19:02 → M PCU 20:36 → M ICU 01-30 02:28 → OBSVTOIN 01-30 06:51 → M MSPAV 02-01 14:40
PROVIDERS: ADMIT Family Medicine; ATTEND Internal Medicine
PROC: 02HV33Z Insertion of Infusion Device into Superior Vena Cava, Percutaneous Approach (ICD-10-PCS; principal; 2021-01-30)
DX: A41.59 Other Gram-negative sepsis (principal); R65.21 Severe sepsis with septic shock; E87.2 Acidosis; E11.65 Type 2 diabetes mellitus with hyperglycemia; E11.9 Type 2 diabetes mellitus without complications; J44.9 Chronic obstructive pulmonary disease, unspecified; E86.0 Dehydration; K52.9 Noninfective gastroenteritis and colitis, unspecified; F17.200 Nicotine dependence, unspecified, uncomplicated; I25.10 Atherosclerotic heart disease of native coronary artery without angina pectoris; R07.89 Other chest pain; Z85.118 Personal history of other malignant neoplasm of bronchus and lung; Z92.3 Personal history of irradiation; Z90.49 Acquired absence of other specified parts of digestive tract; Z95.5 Presence of coronary angioplasty implant and graft; Z79.4 Long term (current) use of insulin; Z79.899 Other long term (current) drug therapy; Z88.6 Allergy status to analgesic agent

== ENCOUNTER → 2021-03-29 | Outpatient (CLI) | payer MEDICARE, MEDICAID ==
[~2021-03-29] MED LIST changes: +ATOR1TAB21 PO; +BASA100I SC; +CEFD250S26 PO; +OMEP-173 PO; -OMEP-218 PO; +SUCR1ORA PO
== END ==
LOC: M PLARAD 07:59
PROVIDERS: ATTEND Internal Medicine Pulmonary Disease
DX: R91.8 Other nonspecific abnormal finding of lung field (principal)
CPT/HCPCS: 78815; A9552

== ENCOUNTER → 2021-04-07 | Outpatient (CLI) | payer MEDICARE, MEDICAID ==
[~2021-04-07] MED LIST changes: -ATOR1TAB21 PO; -BASA100I SC; -OMEP-173 PO; +OMEP-218 PO; -SUCR1ORA PO
[2021-04-07 14:13] LABS: ABG BASE EXCESS 1.9 (-2.0-2.0); ABG PARTIAL PRESSURE CO2 38.7 mmHg (35.0-45.0); ABG PARTIAL PRESSURE O2 90.3 mmHg (75.0-100.0); ABG SITE RT BRACHIAL; ABG STANDARD HCO3 26.2 MEQ/L (22.0-26.0); ABG TOTAL CO2 27.2 MEQ/L (23.0-31.0); ABG pH (ARTERIAL) 7.445 UNITS (7.350-7.450)
[2021-04-07 14:25] LABS: BASO % 0.5 % (0.0-1.0); EOS # 0.1 10^3/uL (0.0-0.5); EOS % 1.5 % (0.0-3.0); HEMATOCRIT 40.5 % (36.0-47.0); HEMOGLOBIN 13.1 g/dl (12.0-15.5); LYMPH # 1.2 10^3/uL (1.5-5.0); LYMPH % 13.2 % (24.0-44.0); MEAN CORPUSCULAR HEMOGLOBIN 28.7 pg (27.0-33.0); MEAN CORPUSCULAR HGB CONC 32.3 g/dl (32.0-36.5); MEAN CORPUSCULAR VOLUME 88.8 fl (80.0-96.0); MONO # 0.5 10^3/uL (0.0-0.8); MONO % 5.8 % (2.0-8.0); NEUTROPHILS % 78.7 % (36.0-66.0); PLATELET COUNT, AUTOMATED 337 10^3/uL (150-450); RED BLOOD COUNT 4.56 10^6/uL (4.00-5.40); WHITE BLOOD COUNT 8.8 10^3/uL (4.0-10.0)
[2021-04-07 14:35] LABS: INR 0.94
[2021-04-07 14:36] LABS: PARTIAL THROMBOPLASTIN TIME 26.8 SECONDS (25.9-37.0)
[2021-04-07 14:42] LABS: BLOOD UREA NITROGEN 18 MG/DL (7-18); CALCIUM LEVEL 8.9 MG/DL (8.8-10.2); CARBON DIOXIDE LEVEL 31 MEQ/L (21-32); CHLORIDE LEVEL 97 MEQ/L (98-107); CREATININE FOR GFR 0.87 MG/DL (0.55-1.30); GLOMERULAR FILTRATION RATE > 60.0 (>45); GLUCOSE, FASTING 370 MG/DL (70-100); SODIUM LEVEL 138 MEQ/L (136-145)
== END ==
LOC: M LAB 13:39
PROVIDERS: ATTEND Internal Medicine Pulmonary Disease
DX: J44.9 Chronic obstructive pulmonary disease, unspecified (principal); Z79.01 Long term (current) use of anticoagulants

== ENCOUNTER → 2021-04-10 | Outpatient (CLI) | payer MEDICARE, MEDICAID | LOC: M LABSMTC 09:04 | PROVIDERS: ATTEND Anesthesiology | DX: Z01.818 Encounter for other preprocedural examination (principal); Z11.52 Encounter for screening for COVID-19 ==

== ENCOUNTER 2021-04-15 06:39 | Day surgery (SDC) | payer MEDICARE, MEDICAID ==
[~2021-04-15] VITALS: Ht 157.5 cm; Wt 43.5 kg
[~2021-04-15 06:39] MED LIST changes: +NS 1,000 ML IV ONE
[2021-04-15] MEDS ORDERED: propofoL 200 MG/20 ML VIAL As Ordered ONE (06:40)
[2021-04-15] MEDS ORDERED: LIDOCAINE 2% 100MG/5ML SDV (FOR ANES.) As Ordered ONE (06:40)
[2021-04-15] MEDS ORDERED: ELEVIEW SUBMUCOSAL INJ 10ML AMP As Ordered ONE (08:27)
[2021-04-15] MEDS ORDERED: PHENYLephrine 500MCG 5ML (100MCG/ML) SYRINGE As Ordered ONE (08:39)
[2021-04-15] MEDS ORDERED: ePHEDrine SULFATE 25 MG/5 ML(5MG/ML) SYRINGE As Ordered ONE (08:39)
--- NOTE | 2021-04-15 09:20 | ROOR ---
Patient Name: Harvey Allred Procedure Date: 04/15/2021 7:33 AM Date of : 1955 Age: 65 Room: [facility] Gender: Female Note Status: Finalized Procedure: Colonoscopy Indications: Abnormal PET scan of the GI tract Providers: Burt Sandoval MD Referring MD: Thomas GERMAN MD Requesting Provider: Medicines: Monitored Anesthesia Care Complications: No immediate complications. Procedure: Pre-Anesthesia Assessment: - Prior to the procedure, a History and Physical was performed, and patient medications and allergies were reviewed. The patient is competent. The risks and benefits of the procedure and the sedation options and risks were discussed with the patient. All questions were answered and informed consent was obtained. Patient identification and proposed procedure were verified by the physician, the nurse and the anesthesiologist in the procedure room. Mental Status Examination: alert and oriented. Airway Examination: normal oropharyngeal airway and neck mobility. Respiratory Examination: clear to auscultation. CV Examination: normal. Prophylactic Antibiotics: The patient does not require prophylactic antibiotics. Prior Anticoagulants: The patient has taken no previous anticoagulant or antiplatelet agents. ASA Grade Assessment: III - A patient with severe systemic disease. After reviewing the risks and benefits, the patient was deemed in satisfactory condition to undergo the procedure. The anesthesia plan was to use monitored anesthesia care (MAC). Immediately prior to administration of medications, the patient was re-assessed for adequacy to receive sedatives. The heart rate, respiratory rate, oxygen saturations, blood pressure, adequacy of pulmonary ventilation, and response to care were monitored throughout the procedure. The physical status of the patient was re-assessed after the procedure. The Colonoscope was introduced through the anus and advanced to the terminal ileum, with identification of the appendiceal orifice and IC valve. The colonoscopy was performed without difficulty. The patient tolerated the procedure well. The quality of the bowel preparation was good. The ileocecal valve, appendiceal orifice, and rectum were photographed. Scope insertion time was 2 minutes. Scope withdrawal time was 10 minutes. The total duration of the procedure was 50 minutes. Findings: The perianal and digital rectal examinations were normal. The terminal ileum appeared normal. Five sessile polyps were found in the sigmoid colon, transverse colon and ascending colon. The polyps were 5 to 15 mm in size. These polyps were removed with a hot snare. Resection and retrieval were complete. To close a defect after polypectomy, one hemostatic clip was successfully placed. There was no bleeding at the end of the procedure. A 50 mm polypoid lesion was found in the rectum. The lesion was frond-like/villous, polypoid, multi-lobulated and semi-sessile. Oozing was present. Preparations were made for mucosal resection. Eleview was injected with partial lift of the lesion from the muscularis propria. Forceps and snare mucosal resection was performed. A 40 mm area was resected. Resection was unsuccessful. No tissue was resected. There was no bleeding at the end of the procedure. To close a defect after polypectomy, three hemostatic clips were successfully placed. There was no bleeding at the end of the procedure. Non-bleeding external and internal hemorrhoids were found during retroflexion. The hemorrhoids were medium-sized. Impression: - The examined portion of the ileum was normal. - Five 5 to 15 mm polyps in the sigmoid colon, in the transverse colon and in the ascending colon, removed with a hot snare. Resected and retrieved. Clip was placed. - Rule out malignancy, polypoid lesion in the rectum. Attempted resection was unsuccessful. Clips were placed. - Non-bleeding external and internal hemorrhoids. - Mucosal resection was performed. Resection was unsuccessful. No tissue was resected. Recommendation: - Patient has a contact number available for emergencies. The signs and symptoms of potential delayed complications were discussed with the patient. Return to normal activities tomorrow. Written discharge instructions were provided to the patient. - Clear liquid diet for 1 day, then advance as tolerated to high fiber diet. - Continue present medications. - Await pathology results. - Miralax 1 capful (17 grams) in 8 ounces of water PO BID. - Refer to a colo-rectal surgeon at the next available appointment. - Return to GI clinic if persistent symptoms or new symptoms. - Return to primary care physician. Procedure Code(s): --- Professional --- 74244, Colonoscopy, flexible; with endoscopic mucosal resection 66895, 59, Colonoscopy, flexible; with removal of tumor(s), polyp(s), or other lesion(s) by snare technique Diagnosis Code(s): --- Professional --- K64.8, Other hemorrhoids K63.5, Polyp of colon D49.0, Neoplasm of unspecified behavior of digestive system R93.3, Abnormal findings on diagnostic imaging of other parts of digestive tract CPT copyright 2019 [employer]. All rights reserved. The codes documented in this report are preliminary and upon plater supervisor review may be revised to meet current compliance requirements. Burt Sandoval MD Burt Sandoval MD 04/15/2021 9:20:08 AM Electronically signed by Burt Sandoval MD Number of Addenda: 0 Note Initiated On: 04/15/2021 7:33 AM Estimated Blood Loss: Estimated blood loss was minimal.
[2021-04-15 09:35] VITALS: BP 117/65
== END 2021-04-15 09:42 | disposition home or self-care (01) ==
LOC: M OPP 06:39
PROVIDERS: ATTEND Internal Medicine Gastroenterology
DX: D12.6 Benign neoplasm of colon, unspecified (principal); K62.1 Rectal polyp; D49.0 Neoplasm of unspecified behavior of digestive system; K64.8 Other hemorrhoids; Z79.4 Long term (current) use of insulin; Z79.899 Other long term (current) drug therapy; Z88.8 Allergy status to other drugs, medicaments and biological substances; Z85.118 Personal history of other malignant neoplasm of bronchus and lung; Z92.3 Personal history of irradiation; Z95.5 Presence of coronary angioplasty implant and graft; F17.210 Nicotine dependence, cigarettes, uncomplicated
CPT/HCPCS: 45385; 88305; J2370

== ENCOUNTER → 2021-04-20 | Outpatient (CLI) | payer MEDICARE, MEDICAID ==
[~2021-04-20] MED LIST changes: -NS 1,000 ML IV ONE
--- NOTE | 2021-04-20 17:08 | RADONC.CN ---
Radiation Oncology Hx/Consult Radiation Oncology Consult Date of Service: Apr 20, 2021 Pt Identifier Harvey Allred is a 65 year old female current smoker with a history of stage I NSCLC of the LLL s/p SBRT @ [facility] in 2019. She now has a new primary LLL NSCLC [id number] stage IA3 as well as a synchronous potential rectal adenocarcinoma, staging pending. She is seen today for consideration of RT and coordination of her oncologic care. Diagnosis/Treatment History Oncologic History NSCLC 2019: Solitary LLL lesion s/p EBUS biopsy 11/27/[address] Matta showing SCC in the LLL [id number] stage IA2. She then received SBRT with Dr. Smith @ [facility]. Radiographically quiescent. NSCLC 2020: 01/29/21 CT chest showing new 2.4 cm tawny-fissural nodule anterior and inferior to treated lesion in the LLL. PET-CT 04/01/21 showing avidity in the lesion. Biopsy deferred. Rectal cancer 2020: She developed intermittent diarrhea and thin stool gauge in mid 2020. She was noted on PET-CT from 04/01/21 for evaluation of her lung lesion to have an intensely hypermetabolic low rectal lesion consistent with primary rectal cancer. No associated pelvic adenopathy evident. She underwent colo noscopy on 04/15/21 which showed some sessile polyps, biopsies showed high grade dysplasia, a large rectal tumor was attempted to resect but was unsuccessful, she was referred to colorectal surgery in [place]. Recent data: 04/15/21 Colonoscopy ([facility]) Findings: The perianal and digital rectal examinations were normal. The terminal ileum appeared normal. Five sessile polyps were found in the sigmoid colon, transverse colon and ascending colon. The polyps were 5 to 15 mm in size. These polyps were removed with a hot snare. Resection and retrieval were complete. To close a defect after polypectomy, one hemostatic clip was successfully placed. There was no bleeding at the end of the procedure. A 50 mm polypoid lesion was found in the rectum. The lesion was frond-like/villous, polypoid, multi-lobulated and semi-sessile. Oozing was present. Preparations were made for mucosal resection. Eleview was injected with partial lift of the lesion from the muscularis propria. Forceps and snare mucosal resection was performed. A 40 mm area was resected. Resection was unsuccessful. No tissue was resected. There was no bleeding at the end of the procedure. To close a defect after polypectomy, three hemostatic clips were successfully placed. There was no bleeding at the end of the procedure. Non-bleeding external and internal hemorrhoids were found during retroflexion. The hemorrhoids were medium-sized. Impression: - The examined portion of the ileum was normal. - Five 5 to 15 mm polyps in the sigmoid colon, in the transverse colon and in the ascending colon, removed with a hot snare. Resected and retrieved. Clip was placed. - Rule out malignancy, polypoid lesion in the rectum. Attempted resection was unsuccessful. Clips were placed. - Non-bleeding external and internal hemorrhoids. - Mucosal resection was performed. Resection was unsuccessful. No tissue was resected. 04/15/21 pathology: FINAL DIAGNOSIS A Colon polyps, polypectomy: Tubulovillous adenoma. B Sigmoid polyp, polypectomy: Tubulovillous adenoma with focal surface high grade dysplasia. No evidence for carcinoma. C Rectal polyp, polypectomy: Multiple tubulovillous adenomas. No evidence for carcinoma. 04/16/21 - 1356 04/01/21 PET-CT FINDINGS: Head and neck soft tissues are unremarkable. There is no evidence of supraclavicular or axillary hypermetabolic adenopathy. In the abdomen and pelvis normal adrenal uptake is seen. There is a large hypermetabolic focus of uptake in an area of mural thickening in the right lateral wall of the rectum. This is somewhat suspicious for rectal malignancy. It is more avid than the background mucosal uptake pattern seen elsewhere in the colon. Maximum standard uptake value here measures 16.67. This merits further evaluation. No other abnormal hypermetabolic uptake is seen in the abdomen or pelvis. No abnormal liver uptake is seen. Within the left lower lobe of the lung, the left lower lobe nodule is seen to be hypermetabolic. Maximum standard uptake value within this is 4.40. This is 3-4 cm inferior and somewhat anterolateral to the level of the previously placed metallic fiducial markers. The original infrahilar hypermetabolic nodule is no longer apparent. This hypermetabolic nodule in the left lower lobe appears to be more peripheral than the original nodule. No other abnormal pulmonary parenchymal hypermetabolic uptake is seen. No hypermetabolic mediastinal or hilar cinthia uptake is appreciated. IMPRESSION: 1. There is a 2.4 cm hypermetabolic nodule in the left lower lobe. This appears to be somewhat more peripheral than the original infrahilar nodule which was adjacent to the fiducial markers. 2. There is suspicion of a large right lateral rectal neoplasm with hypermetabolic mural thickening. Endoscopic and histologic correlation recommended. PFTs 08/11/20 FVC 1.59 FEV1 0.81 FEV1/FVC 77% pred Severe COPD Interval History Here with her daughter, continues to smoke, no desire to quit at this time. Has stable TRIANA, trelegy has been helpful for this. She has no pain in the chest or abdomen. Weight is stable. Still having loose BMs and thin stools. No BRBPR. Past Medical History: COPD CAD DMII Past Surgical History: CABG Cataracts Family History: No family history of cancer Social History: 45 pack year current smoker 1 ppd Does not drink Allergies / Meds Allergies: Coded Allergies: aspirin (Unverified Adverse Reaction, Intermediate, NAUSEA and vomiting, 04/13/21) Home Meds Reported Medications Insulin Glargine,Hum.rec.anlog (Lantus Solostar) 100 Unit/1 Ml Insuln.pen, 10 UNITS SC QHS, INJ 01/29/21 Fluticasone/Umeclidin/Vilanter (Trelegy Ellipta 100-62.5-25) 1 Each Blst.w.dev, 1 PUFF INH DAILY 11/27/19 Albuterol Sulfate (Proair Hfa) 8.5 Gm Hfa.aer.ad, 2 PUFF INH Q4H PRN for SOB/WHEEZING 11/20/19 Albuterol Sulf (Albuterol Sulfate) 2.5 Mg/3 Ml Vial.neb, 2.5 MG INH QID PRN for SHORTNESS OF BREATH 11/20/19 Metformin HCl (Metformin HCl) 500 Mg Tablet, 500 MG PO BID, TAB 07/09/19 Discontinued Scripts Cefdinir (Cefdinir) 250 Mg/5 Ml Susp.recon, 300 MG PO BID for 11 Days, #132 ML Please take 6mL twice a day Prov:SIMIN CHARLTON D.O. 02/02/21 Review of Systems Constitutional: Denies: Chills, Fever, Fatigue Eyes: Denies: Pain HEENT: Denies: Head Aches Skin: Denies: Rash Pulmonary: Reports: Dyspnea; Denies: Cough, Pleuritic Chest Pain Cardiovascular: Denies: Chest Pain, Edema Gastrointestinal: Reports: Diarrhea; Denies: Nausea, Vomiting, Abdominal Pain, Hematochezia Hematologic: Denies: Bruising, Petecchia Musculoskeletal: Denies: Neck pain, Back pain Neurological: Denies: Weakness, Numbness Psych: Reports: Mood Normal Vital Signs Ht 62" Wt 97.4 BMI 17 T 98 P 109 RR 20 BP 156/95 O2 96% Pain 0 Fatigue 0 General Exam: Alert, Cooperative, No Acute Distress Eye Exam: PERRLA, EOMI ENT EXAM: Atraumatic, Pharynx Normal Neck Exam: Supple; Negative: Lymphadenopathy Chest Exam: Clear to auscultation, Normal air movement Heart Exam: Rate Normal, Regular Rhythm Abdomen Exam: Normal bowel sounds, Soft; Negative: Other (WILLOW negative no blood on glove tip) Extremity Exam: Negative: Edema Skin Exam: Nl turgor and temperature, Rash Neuro Exam: Normal Gait, Normal Speech, Cranial Nerves 3-12 NL Psych Exam: Mental status NL Diagnostic and Laboratory Diagnostic Review Radiologic images, relevant labs and pathology reports were personally reviewed and discussed with Ms. Allred. Assessment and Plan Impression Ms. Allred is a 65 year old female current smoker with a history of stage I NSCLC of the LLL s/p SBRT @ [facility] in 2019. She now has a new primary LLL NSCLC [id number] stage IA3 as well as a synchronous potential rectal adenocarcinoma, staging pending. She is seen today for consideration of RT and coordination of her oncologic care. Stage NSCLC LLL [id number] stage IA3 Rectal adenocarcinoma [id number] (staging pending MRI) Performance Status ECOG 1 Plan We had an extensive discussion with Ms. Allred regarding the diagnosis at hand and available therapeutic options. We had a 3 minute discussion about the rationale for quitting smoking at this time. She does not want to quit, will revisit in the future. She has a low BMI but assures that her weight has been stable. She is minimally symptomatic from the rectal tumor and has no signs of full obstruction. She has been referred to colorectal surgery in [place] (unclear which group) for EUS and rebiopsy. I discussed that an MRI for staging purposes would be of great use given that this is most likely an invasive cancer, therefore I will order to be done here. If she is proven to have a rectal cancer this would take oncologic priority as given the position and PET appearance it is likely she would need trimodality therapy to effect a cure. With respect to rectal cancer treatment we reviewed the general paradigm of neoadjuvant therapy with chemoradiation +/- additional chemotherapy + surgery in most cases and watchful waiting in select cases with good responses to initial therapy. First steps will be confirming the diagnosis with rebiopsy and staging with MRI. Given that this workup will likely take several weeks, I will refer her also to medical oncology here anticipating a need for some systemic therapy. Given the [id number] I also think she would be well-served to have the new LLL lung lesion treated prior to the start of rectal cancer therapy or additional invasive diagnostics. For treatment of this lesion I would use SBRT 60 Gy in 5 fractions with 4DCT/ITV DCA planning. This is direct reirradiation as the previously treated LLL is immediately adjacent and there will be overlap. We have obtained the DICOM files from [facility] and so will incorporate these in the present treatment plan. We discussed the logistics of receiving radiation therapy in detail including the need for a 1-time planning session. This can occur next week. We reviewed the side effects of SBRT including fatigue, fibrosis and pneumonitis. After discussing the risks, benefits and alternatives to radiation therapy, Ms. Allred was amenable to pursuing radiotherapy. All questions were answered to the patient's satisfaction. We instructed the patient that if there were any questions,concerns or changes in clinical status in the interim to contact us. Recommendations Prompt treatment of the LLL NSCLC SBRT 60 Gy in 5 fractions with 4DCT/ITV/DCA planning Simulation in the next week Medical oncology referral MRI pelvis to stage presumed rectal cancer Colorectal surgery consult placed, needs repeat biopsy for diagnosis Billing Statement Total time of [61] minutes was spent preparing for the visit [4], obtaining HPI [8], examining the patient [4], reviewing diagnostic tests [8], discussing management options [22], coordinating care [5], and writing this note [10]. KENYETTA SIDDIQUI MD Apr 20, 2021 16:48
== END ==
LOC: M ONCR 14:28
PROVIDERS: ATTEND General Practice
DX: C34.32 Malignant neoplasm of lower lobe, left bronchus or lung (principal); D37.5 Neoplasm of uncertain behavior of rectum; F17.210 Nicotine dependence, cigarettes, uncomplicated; J44.9 Chronic obstructive pulmonary disease, unspecified; I25.10 Atherosclerotic heart disease of native coronary artery without angina pectoris; E11.9 Type 2 diabetes mellitus without complications; Z79.4 Long term (current) use of insulin; Z79.84 Long term (current) use of oral hypoglycemic drugs; Z79.899 Other long term (current) drug therapy; Z88.6 Allergy status to analgesic agent; Z95.5 Presence of coronary angioplasty implant and graft

== ENCOUNTER → 2021-04-23 | Outpatient (CLI) | payer MEDICARE, MEDICAID ==
[~2021-04-23] MED LIST changes: +PROHANCE 279.3MG/ML 5ML VIAL As Ordered ONE
--- NOTE | 2021-04-23 13:22 | REP ---
INDICATION: RECTAL CA STAGING. COMPARISON: None. TECHNIQUE: Pre and post contrast 3T MRI of the pelvis was performed utilizing various sequences. Gadolinium utilized: 8 cc ProHance FINDINGS: There is magnetic susceptibility artifact obscuring the intra pelvic contents. This is secondary to multiple hemostatic clips placed during surgery. The colo rectal soft tissues cannot be well evaluated secondary to this. There is no evidence of pelvic sidewall adenopathy. There is no evidence of gross free fluid. Only a small segment of sigmoid colon is seen without being obscured by the artifact. That small segment is without evidence of a mass or abnormal enhancement. The cortical and marrow signal seen throughout the examination is within normal limits. IMPRESSION: Limitations and findings as described above. <Electronically signed by Alex Mora > 04/23/21 [id number]
== END ==
LOC: M RAD 10:40
PROVIDERS: ATTEND General Practice
DX: C20 Malignant neoplasm of rectum (principal)
CPT/HCPCS: 72197; A9576

== ENCOUNTER 2021-04-27 09:42 | Outpatient (RCR) | payer MEDICARE, MEDICAID ==
[~2021-04-27 09:42] MED LIST changes: -PROHANCE 279.3MG/ML 5ML VIAL As Ordered ONE
== END 2021-05-09 ==
LOC: M ONCR 09:42
PROVIDERS: ATTEND General Practice
DX: C34.32 Malignant neoplasm of lower lobe, left bronchus or lung (principal)

== ENCOUNTER 2021-05-14 11:55 | Outpatient (RCR) | payer MEDICARE, MEDICAID ==
[~2021-05-14 11:55] MED LIST changes: +OMEP-173 PO; -OMEP-218 PO
== END 2021-06-08 ==
LOC: M ONCR 11:55
PROVIDERS: ATTEND General Practice
DX: C34.32 Malignant neoplasm of lower lobe, left bronchus or lung (principal); C20 Malignant neoplasm of rectum

== ENCOUNTER 2021-06-11 08:27 | Inpatient (IN) | payer MEDICARE, MEDICAID ==
[~2021-06-11] VITALS: Ht 157.5 cm; Wt 48.6 kg
[2021-06-11] MEDS ORDERED: ONDANSETRON 4MG/2ML VIAL IV ONE (08:55)
[2021-06-11] MEDS ORDERED: fentaNYL 100 MCG/2 ML INJECTION IV ONE (08:55)
[2021-06-11] MEDS ORDERED: NS 1,000 ML IV SCH (08:55)
[2021-06-11 10:35] LABS: BASO % 0.3 % (0.0-1.0); HEMATOCRIT 36.3 % (36.0-47.0); HEMOGLOBIN 11.8 g/dl (12.0-15.5); LYMPH % 7.1 % (24.0-44.0); MEAN CORPUSCULAR HGB CONC 32.5 g/dl (32.0-36.5); MONO # 0.4 10^3/uL (0.0-0.8); MONO % 2.8 % (2.0-8.0); NEUTROPHILS # 12.6 10^3/uL (1.5-8.5); NEUTROPHILS % 89.2 % (36.0-66.0); PLATELET COUNT, AUTOMATED 505 10^3/uL (150-450); RED BLOOD COUNT 4.22 10^6/uL (4.00-5.40); WHITE BLOOD COUNT 14.2 10^3/uL (4.0-10.0)
[2021-06-11] MEDS ORDERED: ISOVUE-370 76% 100ML VIAL As Ordered ONE (10:49)
[2021-06-11 10:59] LABS: ALBUMIN 2.2 GM/DL (3.2-5.2); ALT/SGPT 12 U/L (12-78); BILIRUBIN,DIRECT < 0.1 MG/DL (0.0-0.2); BILIRUBIN,TOTAL 0.4 MG/DL (0.2-1.0); LIPASE 66 U/L (73-393); TOTAL PROTEIN 8.3 GM/DL (6.4-8.2)
[2021-06-11 11:13] LABS: RSV AMPLIFICATION NEGATIVE (NEGATIVE)
[2021-06-11] MEDS ORDERED: NS 500 ML IV ONE (11:15)
[2021-06-11] MEDS ORDERED: IPRATROPIUM 0.5MG/ALBUTEROL 2.5MG INH SOL UD 3ML (DUONEB) NEB ONE (11:45)
[2021-06-11] MEDS ORDERED: ALBUTEROL SULFATE 2.5 MG/0.5 ML INH NEB SOLN INH ONE (11:45)
[2021-06-11] MEDS ORDERED: HumuLIN R (REGULAR) INSULIN (NovoLIN R) **100U/ML** PER UNIT IV ONE (11:50)
[2021-06-11] MEDS ORDERED: HOME MED LIST COMPLETE! XX SCH (11:55)
[2021-06-11] MEDS ORDERED: LIDOCAINE 2% 5ML JELLY UROJET TOP ONE (11:55)
[2021-06-11] MEDS ORDERED: BASA100I SC (11:55)
[2021-06-11] MEDS ORDERED: PIPERACILLIN/TAZOBACTAM SOD 4.5 GM in D5W MINI-BAG PLUS 50 ML IV ONE (12:00)
[2021-06-11 12:16] LABS: NT-PRO BNP 32127 PG/ML (<125)
[2021-06-11 12:19] LABS: ABG BASE EXCESS 1.8 (-2.0-2.0); ABG HCO3 27.1 MEQ/L (22.0-26.0); ABG PARTIAL PRESSURE CO2 45.3 mmHg (35.0-45.0); ABG PARTIAL PRESSURE O2 68.6 mmHg (75.0-100.0); ABG STANDARD HCO3 25.9 MEQ/L (22.0-26.0); ABG TOTAL CO2 28.4 MEQ/L (23.0-31.0); ABG pH (ARTERIAL) 7.394 UNITS (7.350-7.450)
[2021-06-11] MEDS ORDERED: FUROSEMIDE 20MG/2ML VIAL (J1940) IV ONE (12:30)
[2021-06-11] MEDS ORDERED: HEPARIN SOD (PORCINE) 5000UNITS/ML 1ML VIAL/SYRINGE SC SCH ×2 (14:00→21:00)
[2021-06-11] MEDS ORDERED: HumuLIN R (REGULAR) INSULIN (NovoLIN R) **100U/ML** PER UNIT IV STA (14:18)
[2021-06-11] MEDS ORDERED: DEXTROSE 50% 50 ML SYRINGE IV PRN (14:30)
[2021-06-11] MEDS ORDERED: ACETAMINOPHEN TAB 650MG DOSE (2X325MG) PO PRN (14:30)
[2021-06-11] MEDS ORDERED: GLUCAGON INJ 1MG VIAL SC PRN (14:30)
[2021-06-11] MEDS ORDERED: GLUCOSE 4GM CHEW TABLET PO PRN (14:30)
[2021-06-11] MEDS ORDERED: SODIUM CHLORIDE 0.9% 1000ML IV STA (15:04)
[2021-06-11 16:04] LABS: MB/CK RELATIVE INDEX 5.17 (< OR =4)
[2021-06-11] MEDS: HumaLOG INSULIN (NovoLOG) PER UNIT SC SCH ×3 (16:15→23:51)
[2021-06-11] MEDS: FAMOTIDINE IV BAG 20 MG in IV 1 EA IV SCH (16:22)
[2021-06-11 17:18] LABS: HEMOGLOBIN A1c 12.5 %
[2021-06-11] MEDS: PIPERACILLIN/TAZOBACTAM SOD 3.375 GM in D5W MINI-BAG PLUS 50 ML IV SCH ×2 (18:18→23:58)
[2021-06-11 20:38] LABS: ALBUMIN 1.8 GM/DL (3.2-5.2); ALT/SGPT 16 U/L (12-78); BILIRUBIN,TOTAL 0.2 MG/DL (0.2-1.0); BLOOD UREA NITROGEN 16 MG/DL (7-18); CALCIUM LEVEL 7.8 MG/DL (8.8-10.2); CARBON DIOXIDE LEVEL 29 MEQ/L (21-32); CHLORIDE LEVEL 99 MEQ/L (98-107); CREATININE FOR GFR 0.89 MG/DL (0.55-1.30); GLOMERULAR FILTRATION RATE > 60.0 (>45); GLUCOSE, FASTING 187 MG/DL (70-100); POTASSIUM SERUM 3.2 MEQ/L (3.5-5.1); SODIUM LEVEL 139 MEQ/L (136-145); TOTAL PROTEIN 5.9 GM/DL (6.4-8.2)
[2021-06-11 20:44] LABS: CK-MB VALUE MASS 4.1 NG/ML (<3.6); MB/CK RELATIVE INDEX 4.14 (< OR =4)
[2021-06-11] MEDS ORDERED: FUROSEMIDE 40MG/4ML VIAL (J1940) IV ONE (21:15)
[2021-06-11] MEDS ORDERED: CLOPIDOGREL 300 MG TAB (PLAVIX) PO STA (21:16)
[2021-06-11] MEDS ORDERED: HEPARIN SOD (PORCINE) 5000UNITS/ML 1ML VIAL/SYRINGE IV PRN (21:20)
[2021-06-11] MEDS ORDERED: ATORVASTATIN 20 MG TAB PO ONE (21:20)
[2021-06-11] MEDS ORDERED: POTASSIUM CHLORIDE 10% LIQ 20 MEQ/15 ML UDC PO ONE (21:50)
[2021-06-11 21:51] VITALS: BP 116/71
[2021-06-11] MEDS: LEVEMIR (INSULIN DETEMIR) 1 UNITS/0.01ML SC SCH (21:58)
[2021-06-11 22:00] VITALS: BP 115/73
[2021-06-11] MEDS: HEPARIN DRIP 25,000 UNITS in IV 1 EA IV SCH ×2 (22:03→22:47)
[2021-06-11 23:00] VITALS: BP 119/72
[2021-06-12] VITALS (19 sets, daily range): BP systolic 86–135; BP diastolic 50–78; PULSE 88
[2021-06-12] MEDS ORDERED: MAG SULF 1GM/100ML (MAG RUN) 1 GM in IV 1 EA IV ONE (00:20)
[2021-06-12] MEDS: FAMOTIDINE IV BAG 20 MG in IV 1 EA IV SCH ×2 (02:36→15:23)
[2021-06-12] MEDS: HumaLOG INSULIN (NovoLOG) PER UNIT SC SCH ×4 (03:32→23:37)
[2021-06-12 05:38] LABS: BASO % 0.2 % (0.0-1.0); EOS # 0.1 10^3/uL (0.0-0.5); EOS % 0.6 % (0.0-3.0); HEMATOCRIT 31.7 % (36.0-47.0); HEMOGLOBIN 10.4 g/dl (12.0-15.5); LYMPH # 1.2 10^3/uL (1.5-5.0); LYMPH % 8.9 % (24.0-44.0); MEAN CORPUSCULAR HEMOGLOBIN 27.8 pg (27.0-33.0); MEAN CORPUSCULAR HGB CONC 32.8 g/dl (32.0-36.5); MEAN CORPUSCULAR VOLUME 84.8 fl (80.0-96.0); MONO # 0.7 10^3/uL (0.0-0.8); MONO % 5.2 % (2.0-8.0); NEUTROPHILS # 11.8 10^3/uL (1.5-8.5); NEUTROPHILS % 84.7 % (36.0-66.0); PLATELET COUNT, AUTOMATED 520 10^3/uL (150-450); RED BLOOD COUNT 3.74 10^6/uL (4.00-5.40); WHITE BLOOD COUNT 13.9 10^3/uL (4.0-10.0)
[2021-06-12 06:12] LABS: ALBUMIN 1.8 GM/DL (3.2-5.2); ALT/SGPT 17 U/L (12-78); BILIRUBIN,TOTAL 0.3 MG/DL (0.2-1.0); BLOOD UREA NITROGEN 13 MG/DL (7-18); CALCIUM LEVEL 8.2 MG/DL (8.8-10.2); CARBON DIOXIDE LEVEL 29 MEQ/L (21-32); CHLORIDE LEVEL 99 MEQ/L (98-107); CREATININE FOR GFR 0.71 MG/DL (0.55-1.30); GLOMERULAR FILTRATION RATE > 60.0 (>45); GLUCOSE, FASTING 65 MG/DL (70-100); MAGNESIUM LEVEL 1.9 MG/DL (1.8-2.4); POTASSIUM SERUM 4.1 MEQ/L (3.5-5.1); SODIUM LEVEL 135 MEQ/L (136-145); TOTAL PROTEIN 6.1 GM/DL (6.4-8.2)
[2021-06-12] MEDS: PIPERACILLIN/TAZOBACTAM SOD 3.375 GM in D5W MINI-BAG PLUS 50 ML IV SCH ×4 (06:16→23:44)
[2021-06-12] MEDS ORDERED: HEPARIN DRIP 25,000 UNITS in IV 1 EA IV SCH (06:28)
[2021-06-12] MEDS: HEPARIN DRIP 25,000 UNITS in IV 1 EA IV SCH ×2 (06:43→23:45)
[2021-06-12] MEDS ORDERED: HumaLOG INSULIN (NovoLOG) PER UNIT SC SCH ×2 (07:30→21:00)
[2021-06-12] MEDS ORDERED: PIPERACILLIN/TAZOBACTAM SOD 4.5 GM in D5W MINI-BAG PLUS 50 ML IV SCH (09:00)
[2021-06-12] MEDS: CLOPIDOGREL 75 MG TAB PO SCH (10:08)
[2021-06-12] MEDS: ATORVASTATIN 20 MG TAB PO SCH (10:09)
[2021-06-12] MEDS ORDERED: ISOVUE-370 76% 100ML VIAL As Ordered ONE (11:22)
[2021-06-12 12:43] LABS: CK-MB VALUE MASS 7.3 NG/ML (<3.6); MB/CK RELATIVE INDEX 4.56 (< OR =4)
[2021-06-12] MEDS ORDERED: FUROSEMIDE 40MG/4ML VIAL (J1940) IV ONE (13:00)
[2021-06-12] MEDS: LEVEMIR (INSULIN DETEMIR) 1 UNITS/0.01ML SC SCH (20:56)
[2021-06-13] VITALS (9 sets, daily range): BP systolic 97–118; BP diastolic 55–68
[2021-06-13] MEDS: FAMOTIDINE IV BAG 20 MG in IV 1 EA IV SCH ×2 (02:58→14:13)
[2021-06-13] MEDS: PIPERACILLIN/TAZOBACTAM SOD 3.375 GM in D5W MINI-BAG PLUS 50 ML IV SCH (05:36)
[2021-06-13] MEDS: HumaLOG INSULIN (NovoLOG) PER UNIT SC SCH ×6 (05:55→21:48)
[2021-06-13 06:29] LABS: BASO % 0.2 % (0.0-1.0); EOS # 0.1 10^3/uL (0.0-0.5); EOS % 0.4 % (0.0-3.0); HEMATOCRIT 27.8 % (36.0-47.0); HEMOGLOBIN 9.2 g/dl (12.0-15.5); LYMPH # 1.1 10^3/uL (1.5-5.0); LYMPH % 7.7 % (24.0-44.0); MEAN CORPUSCULAR HEMOGLOBIN 27.9 pg (27.0-33.0); MEAN CORPUSCULAR HGB CONC 33.1 g/dl (32.0-36.5); MEAN CORPUSCULAR VOLUME 84.2 fl (80.0-96.0); MONO # 0.8 10^3/uL (0.0-0.8); MONO % 5.8 % (2.0-8.0); NEUTROPHILS # 11.8 10^3/uL (1.5-8.5); NEUTROPHILS % 85.4 % (36.0-66.0); PLATELET COUNT, AUTOMATED 453 10^3/uL (150-450); WHITE BLOOD COUNT 13.8 10^3/uL (4.0-10.0)
[2021-06-13 07:05] LABS: ALBUMIN 1.5 GM/DL (3.2-5.2); BILIRUBIN,TOTAL 0.5 MG/DL (0.2-1.0); CALCIUM LEVEL 7.3 MG/DL (8.8-10.2); CREATININE FOR GFR 0.99 MG/DL (0.55-1.30); GLOMERULAR FILTRATION RATE 59.6 (>45); POTASSIUM SERUM 3.1 MEQ/L (3.5-5.1); TOTAL PROTEIN 5.4 GM/DL (6.4-8.2)
[2021-06-13] MEDS: ATORVASTATIN 20 MG TAB PO SCH (08:27)
[2021-06-13] MEDS: CLOPIDOGREL 75 MG TAB PO SCH (08:27)
[2021-06-13 08:40] LABS: MAGNESIUM LEVEL 1.8 MG/DL (1.8-2.4)
[2021-06-13] MEDS ORDERED: POTASSIUM CHLORIDE 10% LIQ 20 MEQ/15 ML UDC PO ONE (09:00)
[2021-06-13] MEDS: CEFDINIR 300 MG CAP (OMNICEF) PO SCH ×2 (10:25→21:47)
[2021-06-13 10:51] LABS: CK-MB VALUE MASS 2.1 NG/ML (<3.6); MB/CK RELATIVE INDEX 2.14 (< OR =4)
[2021-06-13] MEDS ORDERED: FUROSEMIDE 20MG/2ML VIAL (J1940) IV ONE (12:00)
[2021-06-13 16:57] LABS: CALCIUM LEVEL 8.2 MG/DL (8.8-10.2); CREATININE FOR GFR 1.12 MG/DL (0.55-1.30); GLOMERULAR FILTRATION RATE 51.7 (>45); MAGNESIUM LEVEL 1.8 MG/DL (1.8-2.4); POTASSIUM SERUM 3.8 MEQ/L (3.5-5.1)
[2021-06-13] MEDS: HEPARIN DRIP 25,000 UNITS in IV 1 EA IV SCH (22:53)
[2021-06-14] VITALS (7 sets, daily range): BP systolic 89–120; BP diastolic 53–71; PULSE 120
[2021-06-14] MEDS ORDERED: NITROGLYCERIN 0.3 MG SUBL TAB SL PRN (01:20)
[2021-06-14] MEDS ORDERED: NITROGLYCERIN 0.4 MG SUBL TABLET SL PRN (01:40)
[2021-06-14] MEDS: FAMOTIDINE IV BAG 20 MG in IV 1 EA IV SCH ×2 (04:05→16:37)
[2021-06-14 05:45] LABS: BASO % 0.4 % (0.0-1.0); EOS # 0.1 10^3/uL (0.0-0.5); EOS % 0.7 % (0.0-3.0); HEMATOCRIT 27.8 % (36.0-47.0); HEMOGLOBIN 8.9 g/dl (12.0-15.5); LYMPH % 9.1 % (24.0-44.0); MEAN CORPUSCULAR HEMOGLOBIN 27.5 pg (27.0-33.0); MEAN CORPUSCULAR VOLUME 85.8 fl (80.0-96.0); MONO # 0.6 10^3/uL (0.0-0.8); MONO % 6.1 % (2.0-8.0); NEUTROPHILS # 8.8 10^3/uL (1.5-8.5); NEUTROPHILS % 83.1 % (36.0-66.0); PLATELET COUNT, AUTOMATED 434 10^3/uL (150-450); RED BLOOD COUNT 3.24 10^6/uL (4.00-5.40); WHITE BLOOD COUNT 10.6 10^3/uL (4.0-10.0)
[2021-06-14 06:30] LABS: ALBUMIN 1.5 GM/DL (3.2-5.2); BILIRUBIN,TOTAL 0.2 MG/DL (0.2-1.0); CALCIUM LEVEL 7.6 MG/DL (8.8-10.2); CREATININE FOR GFR 1.26 MG/DL (0.55-1.30); GLOMERULAR FILTRATION RATE 45.1 (>45); MAGNESIUM LEVEL 1.8 MG/DL (1.8-2.4); POTASSIUM SERUM 3.9 MEQ/L (3.5-5.1); TOTAL PROTEIN 5.6 GM/DL (6.4-8.2)
[2021-06-14 07:49] LABS: CK-MB VALUE MASS 1.1 NG/ML (<3.6); MB/CK RELATIVE INDEX 2.39 (< OR =4)
[2021-06-14] MEDS: HumaLOG INSULIN (NovoLOG) PER UNIT SC SCH ×4 (09:06→19:49)
[2021-06-14] MEDS: ATORVASTATIN 20 MG TAB PO SCH (09:06)
[2021-06-14] MEDS: CLOPIDOGREL 75 MG TAB PO SCH (09:06)
[2021-06-14] MEDS: CEFDINIR 300 MG CAP (OMNICEF) PO SCH ×2 (09:13→19:49)
[2021-06-14] MEDS ORDERED: BISACODYL 5 MG TAB PO ONE (11:00)
[2021-06-14] MEDS: HEPARIN DRIP 25,000 UNITS in IV 1 EA IV SCH (23:40)
[2021-06-15] VITALS: BP 97/56
[2021-06-15] MEDS: FAMOTIDINE IV BAG 20 MG in IV 1 EA IV SCH ×2 (02:50→14:34)
[2021-06-15 04:00] VITALS: BP 106/66
[2021-06-15 05:49] LABS: BASO % 0.4 % (0.0-1.0); EOS # 0.1 10^3/uL (0.0-0.5); EOS % 0.8 % (0.0-3.0); HEMATOCRIT 29.8 % (36.0-47.0); HEMOGLOBIN 9.4 g/dl (12.0-15.5); LYMPH # 0.7 10^3/uL (1.5-5.0); LYMPH % 8.5 % (24.0-44.0); MEAN CORPUSCULAR HEMOGLOBIN 27.4 pg (27.0-33.0); MEAN CORPUSCULAR HGB CONC 31.5 g/dl (32.0-36.5); MEAN CORPUSCULAR VOLUME 86.9 fl (80.0-96.0); MONO # 0.4 10^3/uL (0.0-0.8); MONO % 4.9 % (2.0-8.0); NEUTROPHILS # 7.1 10^3/uL (1.5-8.5); NEUTROPHILS % 84.7 % (36.0-66.0); PLATELET COUNT, AUTOMATED 428 10^3/uL (150-450); RED BLOOD COUNT 3.43 10^6/uL (4.00-5.40); WHITE BLOOD COUNT 8.3 10^3/uL (4.0-10.0)
[2021-06-15 06:18] LABS: CK-MB VALUE MASS 1.2 NG/ML (<3.6); MB/CK RELATIVE INDEX 2.55 (< OR =4)
[2021-06-15 06:44] LABS: ALBUMIN 1.7 GM/DL (3.2-5.2); BILIRUBIN,TOTAL 0.2 MG/DL (0.2-1.0); CALCIUM LEVEL 7.8 MG/DL (8.8-10.2); CREATININE FOR GFR 1.42 MG/DL (0.55-1.30); GLOMERULAR FILTRATION RATE 39.3 (>45); POTASSIUM SERUM 3.9 MEQ/L (3.5-5.1); TOTAL PROTEIN 6.3 GM/DL (6.4-8.2)
[2021-06-15] MEDS ORDERED: LEVEMIR (INSULIN DETEMIR) 1 UNITS/0.01ML SC ONE ×2 (07:30→13:20)
[2021-06-15] MEDS: HumaLOG INSULIN (NovoLOG) PER UNIT SC SCH ×4 (10:12→20:29)
[2021-06-15] MEDS: CLOPIDOGREL 75 MG TAB PO SCH (10:13)
[2021-06-15] MEDS: CEFDINIR 300 MG CAP (OMNICEF) PO SCH ×2 (10:13→20:41)
[2021-06-15] MEDS: ATORVASTATIN 20 MG TAB PO SCH (10:13)
[2021-06-15 10:49] VITALS: BP 106/64
[2021-06-15] MEDS: METOPROLOL TART 12.5 MG PER 1/2 TAB PO SCH (10:53)
[2021-06-15 12:00] VITALS: BP 101/57
[2021-06-15] MEDS ORDERED: HumaLOG INSULIN (NovoLOG) PER UNIT SC SCH ×3 (13:25→21:00)
[2021-06-15] MEDS: HEPARIN SOD (PORCINE) 5000UNITS/ML 1ML VIAL/SYRINGE SQ SCH ×2 (13:32→22:11)
[2021-06-15 16:10] LABS: MYCOPLASMA PNEUMONIAE IgG 519 U/mL (0-99); MYCOPLASMA PNEUMONIAE IgM <770 U/mL (0-769)
[2021-06-15 20:00] VITALS: BP 107/65
[2021-06-15] MEDS: LEVEMIR (INSULIN DETEMIR) 1 UNITS/0.01ML SC SCH (20:41)
[2021-06-15 21:08] VITALS: BP 130/83
[2021-06-16 03:00] VITALS: BP 136/85
[2021-06-16] MEDS: FAMOTIDINE IV BAG 20 MG in IV 1 EA IV SCH ×2 (03:28→14:09)
[2021-06-16] MEDS: HEPARIN SOD (PORCINE) 5000UNITS/ML 1ML VIAL/SYRINGE SQ SCH ×3 (05:23→21:28)
[2021-06-16 06:00] VITALS: BP 104/64
[2021-06-16] MEDS: HumaLOG INSULIN (NovoLOG) PER UNIT SC SCH ×4 (07:30→21:00)
[2021-06-16 08:39] LABS: BASO % 0.2 % (0.0-1.0); EOS # 0.1 10^3/uL (0.0-0.5); EOS % 0.8 % (0.0-3.0); HEMATOCRIT 32.9 % (36.0-47.0); HEMOGLOBIN 10.4 g/dl (12.0-15.5); LYMPH # 0.8 10^3/uL (1.5-5.0); LYMPH % 8.4 % (24.0-44.0); MEAN CORPUSCULAR HEMOGLOBIN 27.7 pg (27.0-33.0); MEAN CORPUSCULAR HGB CONC 31.6 g/dl (32.0-36.5); MEAN CORPUSCULAR VOLUME 87.5 fl (80.0-96.0); MONO # 0.6 10^3/uL (0.0-0.8); MONO % 5.6 % (2.0-8.0); NEUTROPHILS # 8.5 10^3/uL (1.5-8.5); NEUTROPHILS % 84.5 % (36.0-66.0); PLATELET COUNT, AUTOMATED 482 10^3/uL (150-450); RED BLOOD COUNT 3.76 10^6/uL (4.00-5.40)
[2021-06-16] MEDS: ATORVASTATIN 20 MG TAB PO SCH (08:56)
[2021-06-16] MEDS: CEFDINIR 300 MG CAP (OMNICEF) PO SCH ×2 (08:56→21:29)
[2021-06-16 08:59] LABS: CALCIUM LEVEL 8.6 MG/DL (8.8-10.2); CREATININE FOR GFR 1.07 MG/DL (0.55-1.30); GLOMERULAR FILTRATION RATE 54.5 (>45)
[2021-06-16] MEDS: CLOPIDOGREL 75 MG TAB PO SCH (08:59)
[2021-06-16] MEDS: METOPROLOL TART 12.5 MG PER 1/2 TAB PO SCH (08:59)
[2021-06-16 14:00] VITALS: BP 116/71
[2021-06-16 16:09] LABS: BODY FLUID CULTURE Not indicated. (.); LEGIONELLA ANTIGEN URINE Negative (Negative); ORGANISM ID Not indicated. (.); SPECIMEN SOURCE Urine (.)
[2021-06-16] MEDS: SUCRALFATE SUSP 1GM/10ML UD PO SCH ×2 (18:00→21:29)
[2021-06-16] MEDS: LEVEMIR (INSULIN DETEMIR) 1 UNITS/0.01ML SC SCH (21:28)
[2021-06-16 22:00] VITALS: BP 115/70
[2021-06-17 00:37] VITALS: BP 132/90
[2021-06-17] MEDS: FAMOTIDINE IV BAG 20 MG in IV 1 EA IV SCH (03:25)
[2021-06-17] MEDS: HEPARIN SOD (PORCINE) 5000UNITS/ML 1ML VIAL/SYRINGE SQ SCH ×2 (05:59→14:04)
[2021-06-17 06:00] VITALS: BP 130/88
[2021-06-17] MEDS: SUCRALFATE SUSP 1GM/10ML UD PO SCH ×3 (08:06→14:17)
[2021-06-17] MEDS: CEFDINIR 300 MG CAP (OMNICEF) PO SCH (08:06)
[2021-06-17] MEDS: CLOPIDOGREL 75 MG TAB PO SCH (08:06)
[2021-06-17 08:07] VITALS: BP 127/84
[2021-06-17] MEDS: ATORVASTATIN 20 MG TAB PO SCH (08:07)
[2021-06-17] MEDS: METOPROLOL TART 12.5 MG PER 1/2 TAB PO SCH (08:07)
[2021-06-17] MEDS: HumaLOG INSULIN (NovoLOG) PER UNIT SC SCH ×3 (08:18→14:17)
[2021-06-17] MEDS ORDERED: CLOP75TA2 PO (10:32)
[2021-06-17] MEDS ORDERED: SUCR1ORA PO (10:32)
[2021-06-17] MEDS ORDERED: ATOR1TAB21 PO (10:32)
[2021-06-17] MEDS ORDERED: METO1TAB87 PO (10:32)
[2021-06-17 13:08] LABS: CHLAMYDIA PNEUMONIAE IgM <1:10 (Neg:<1:10)
[2021-06-17] MEDS ORDERED: FUROSEMIDE 20MG/2ML VIAL (J1940) IV ONE (13:15)
[2021-06-17] MEDS ORDERED: ALBUTEROL 90 MCG/ACT 8GM HFA INHALER INH ONE (13:15)
[2021-06-17] MEDS ORDERED: FUROSEMIDE 20 MG TAB PO ONE (13:50)
[2021-06-17 14:00] VITALS: BP 112/73
[2021-06-17 16:30] LABS: PHOSPHORUS LEVEL 3.3 MG/DL (2.5-4.9)
[2021-06-17 17:08] LABS: URINE STREP PNEUMONIAE ANTIGEN Positive (Negative)
[2021-06-17] MEDS ORDERED: FAMOTIDINE 20 MG TAB PO SCH (21:00)
[2021-06-17] MEDS ORDERED: METOPROLOL TART 12.5 MG PER 1/2 TAB PO SCH (21:00)
== END 2021-06-17 18:12 | disposition home health service (06) | DRG 871 ==
LOC: M ED 08:27 → EDBD 08:27 → M ED INP 14:23 → ENRESERV 20:24 → M PCU 21:43 → M MSPAV 06-15 20:54
PROVIDERS: ADMIT Internal Medicine; ATTEND Internal Medicine
DX: A41.9 Sepsis, unspecified organism (principal); I21.A1 Myocardial infarction type 2; N10 Acute pyelonephritis; E87.2 Acidosis; Z68.1 Body mass index [BMI] 19.9 or less, adult; E11.65 Type 2 diabetes mellitus with hyperglycemia; J44.9 Chronic obstructive pulmonary disease, unspecified; I25.10 Atherosclerotic heart disease of native coronary artery without angina pectoris; I10 Essential (primary) hypertension; Z86.010 Personal history of colon polyps; Z66 Do not resuscitate; R05.3 Chronic cough; R09.02 Hypoxemia; R63.6 Underweight; E86.0 Dehydration; B96.1 Klebsiella pneumoniae [K. pneumoniae] as the cause of diseases classified elsewhere; Z79.02 Long term (current) use of antithrombotics/antiplatelets; Z79.4 Long term (current) use of insulin; Z79.899 Other long term (current) drug therapy; Z88.6 Allergy status to analgesic agent; Z85.118 Personal history of other malignant neoplasm of bronchus and lung; Z92.3 Personal history of irradiation; Z98.49 Cataract extraction status, unspecified eye; Z20.822 Contact with and (suspected) exposure to COVID-19; Z90.49 Acquired absence of other specified parts of digestive tract; Z95.1 Presence of aortocoronary bypass graft

== ENCOUNTER 2021-06-23 18:40 | Emergency (ER) | payer MEDICARE, MEDICAID ==
[~2021-06-23] VITALS: Ht 157.5 cm; Wt 38.2 kg
[~2021-06-23 18:40] MED LIST changes: +ATOR1TAB21 PO; +BASA100I SC; +SUCR1ORA PO
[2021-06-23 22:45] LABS: BASO % 0.4 % (0.0-1.0); EOS % 0.2 % (0.0-3.0); HEMATOCRIT 33.7 % (36.0-47.0); HEMOGLOBIN 10.7 g/dl (12.0-15.5); LYMPH # 1.4 10^3/uL (1.5-5.0); LYMPH % 13.7 % (24.0-44.0); MEAN CORPUSCULAR HEMOGLOBIN 27.6 pg (27.0-33.0); MEAN CORPUSCULAR HGB CONC 31.8 g/dl (32.0-36.5); MEAN CORPUSCULAR VOLUME 87.1 fl (80.0-96.0); MONO # 0.5 10^3/uL (0.0-0.8); MONO % 4.8 % (2.0-8.0); NEUTROPHILS # 8.4 10^3/uL (1.5-8.5); NEUTROPHILS % 80.4 % (36.0-66.0); PLATELET COUNT, AUTOMATED 517 10^3/uL (150-450); RED BLOOD COUNT 3.87 10^6/uL (4.00-5.40); WHITE BLOOD COUNT 10.4 10^3/uL (4.0-10.0)
[2021-06-23 23:27] LABS: ALBUMIN 2.6 GM/DL (3.2-5.2); BILIRUBIN,DIRECT 0.1 MG/DL (0.0-0.2); BILIRUBIN,TOTAL 0.3 MG/DL (0.2-1.0); CALCIUM LEVEL 9.1 MG/DL (8.8-10.2); CREATININE FOR GFR 1.28 MG/DL (0.55-1.30); GLOMERULAR FILTRATION RATE 44.3 (>45); POTASSIUM SERUM 5.2 MEQ/L (3.5-5.1); THYROID STIMULATING HORMONE 5.38 uIU/ML (0.358-3.740); TOTAL PROTEIN 7.6 GM/DL (6.4-8.2)
[2021-06-24 00:10] VITALS: BP 95/61
[2021-06-24] MEDS ORDERED: NITROGLYCERIN 2% OINT 1 GM *U/D* PKT TOP ONE (00:10)
[2021-06-24 00:30] VITALS: BP 98/66
[2021-06-24 00:50] LABS: INR 1.11; PROTHROMBIN TIME 14.8 SECONDS (12.7-14.5)
[2021-06-24] MEDS ORDERED: HEPARIN DRIP 25,000 UNITS in IV 1 EA IV SCH (01:00)
[2021-06-24] MEDS ORDERED: HEPARIN SOD (PORCINE) 5000UNITS/ML 1ML VIAL/SYRINGE IV ONE (01:00)
[2021-06-24] MEDS ORDERED: HEPARIN 25,000 UNITS/250 ML D5W BAG (100 UNITS/ML) (J1644 PER 1000UNITS) As Ordered ONE ×2 (01:08→01:09)
[2021-06-24] MEDS ORDERED: HEPARIN SOD (PORCINE) 5000UNITS/ML 1ML VIAL/SYRINGE As Ordered ONE (01:15)
== END 2021-06-24 02:40 | disposition short-term general hospital (02) ==
LOC: M ED 18:40
DX: I21.4 Non-ST elevation (NSTEMI) myocardial infarction (principal); I50.9 Heart failure, unspecified; I44.5 Left posterior fascicular block; I45.2 Bifascicular block; I45.10 Unspecified right bundle-branch block; R00.0 Tachycardia, unspecified; I25.10 Atherosclerotic heart disease of native coronary artery without angina pectoris; E11.9 Type 2 diabetes mellitus without complications; I10 Essential (primary) hypertension; J44.9 Chronic obstructive pulmonary disease, unspecified; Z95.1 Presence of aortocoronary bypass graft; F17.200 Nicotine dependence, unspecified, uncomplicated